=== PATIENT | female | born 1945 | race Caucasian/White ===

== ENCOUNTER 2022-02-13 13:11 | Outpatient (RCR) | payer MEDICARE, OTHER, SELFPAY ==
--- OUTSIDE RECORDS SUMMARY | 2022-02-08 09:09 | XMS_ITS | Continuity of Care Document ---
:1945 Author Care Team Providers Name Role Phone MD Ya Attending Physician Unavailable MD Candida Weaver Primary Care Physician Chief Complaint and Reason for Visit Chief Complaint Neck Pain Reason for Visit C2 patholgic fracture Multiple Myeloma Allergies, Adverse Reactions, Alerts No known allergies Social History Smoking Status Status Start Date End Date Date of Observat ion Never smoked tobacco July (finding) 12:58pm Additional Data Assigned Sex Female Medications Medication Status Dose Units Route Directions Qty Days Start End Ins tructions Date Date Acetaminophen Active 325-6 MG PO Every 4 100 NO MORE THAN (Tylenol) 325 50 Hours as 400 0 MG/DAY Mg TAB needed Acyclovir Active 400 MG PO Twice A Day 180 January 23, 2021 4:53pm Aluminum & Active 1 LUCIE OR As Needed 16 January use as directed on bottle for occasional gas, belching. Magnesium as needed , Separa te from other medications by several hours. Hydroxide 2020 (Mag-Al) LIQ 2:22pm Aspirin Active 81 MG PO Daily 100 Decembe r 2019 2:32pm Calcium/Vitam Active 1 TAB PO Daily 100 Februar sta rt around in D (Calcium y 10th, 2020 Carbonate/Vit 2020 kyle D) 600 10:42am Mg/400 Unit TAB Dexamethasone Active 4 MG PO As Directed 60 20 October TAKE 4 MG , DAILY x 5 2021 DAYS EACH 12:14pm WEEK Itraconazole Active 200 PO Daily Levothyroxine Active 25 MCG PO Daily 30 Sodium (Synthroid) 25 Mcg TAB Polyethylene Active 17 GM PO Daily 238 Glycol 3350 (Miralax) 17 Gm POW Sulfamethoxaz Active 1 TABLET PO Weekly 21 October ole-Trimethop 15th, rim (Bactrim 2021 Ds (800/160)) 12:14pm 800 Mg/160 Mg TAB Terbinafine Active 1 % EX Hcl (Topical) (Terbinafine Hcl) 1 % CRE Acyclovir Disconti 400 MG PO Twice A Day 180 October nued , , 2020 2020 2:11pm 4:53pm Acyclovir Disconti 400 MG PO Twice A Day 180 October nued r , 2019 2:32pm 2:11pm Cyclophospham Disconti 552 MG PO Weekly 44 November ta ke 11 joni nued , , capsules 2020 2020 weekly. 12:45pm 1:54pm Cyclophospham Disconti 552 MG PO Weekly 44 November take 11 joni nued r , , capsules 2019 2020 weekly. 2:30pm 12:45p m Dexamethasone Disconti 4 MG PO Daily October GARCÍA E 4 MG nued , , DAILY x 5 2021 2021 DAYS EACH 1:31pm 12:14p WEEK m Dexamethasone Disconti 4 MG PO Daily as 6 20 October GIVE EVERY 6 nued needed , HOURS 2021 NEEDED FOR 1:31pm CROUP Dexamethasone Disconti 8 MG PO As Directed August ebrua Take 2 tabs nued , ry of 4 mg po 2022 04, daily for 5 2:09pm 2021 days a week. 2:37pm Dexamethasone Disconti 20 MG PO Weekly Decemberuar t ting 5 nued , y tablets 2020, weekly 1:54pm 2021 2:09pm Dexamethasone Disconti 40 MG PO Weekly 40 Decembdecember nued r 15, , 2019 2020 2:27pm 1:54pm Essential Disconti 1 TABLET PO As Needed Septem Enzyme nued 2020 11:18a m Lactobacillus Disconti 1 OR Daily Februa (Probiotic) nued ry CAP 2021 1:42pm Lorazepam Disconti 0.5-1 MG PO Every 4 50 Decembe Februa UT N nued Hours as r , ry Nausea/vo miti needed for 2020 04, ng Nausea/Vomi 2:27pm 2021 ting 1:42pm Multivitamins Disconti 1 TAB PO As Needed October (Multivitamin nued , /Minerals) 2020 TAB 10:24a m Oxycodone Hcl Disconti 5-10 MG PO Every 6 15 Decembe Decem b nued Hours as r 1st, er needed 2019 15, 3:22pm 2020 1:22pm Penlac Disconti TOP Daily Septem nued dimas 2020 11:18a m Prochlorperaz Disconti 10 MG PO Every 4-6 30 Decembe Sep katerine PRN ine Maleate nued Hours as r 15, ry Eladio sea/vomiti needed for 2020 04, ng Nausea/Vomi 2:27pm 2021 ting 1:42pm Sulfamethoxaz Disconti 1 TABLET PO Weekly 21 October ole-Trimethop nued 15, rim (Bactrim 2021 Ds (800/160)) 12:14p 800 Mg/160 Mg m TAB Sulfamethoxaz Disconti 1 TAB PO Daily Decembe Februa ole-Trimethop nued r 15, ry rim (Bactrim 2020 9, Ds) 800 1:00pm 2021 Mg/160 Mg TAB 1:42pm Sulfamethoxaz Disconti 1 TAB PO Twice 30 Decembe Decemb take 1 tab ole-Trimethop nued Weekly r 15, er Fri and 1 rim (Bactrim 2019, tab fri Ds) 800 2:32pm 2020 Mg/160 Mg TAB 1:00pm Relevant Diagnostic Tests and/or Laboratory Data Laboratory Results Test Date/Time Result Interpretation Reference Result Comment Performing Range Site White Blood January 23, 5.14 5.00-10.00 [facility] Lab Count 2021 [address] [facility] 1:20pm [facility] [address] Red Blood January 23, 4.09 3.90-5.03 [facility] Count 2021 [address] [facility] 1:20pm [facility] [address] Hemoglobin January 23, 14.2 12.0-15.5 [facility] 2021 [address] [facility] 1:20pm [facility] [address] Hematocrit January 23, 42.7 34.9-44.5 [facility] 2021 [address] [facility] 1:20pm [facility] [address] Mean January 23, 104 82-98 [facility] Corpuscular 2021 1999 [facility] Volume 1:20pm [place] [address] Mean January 23, 35 27-34 [facility] Corpuscular 2021 [address] [facility] Hemoglobin 1:20[place] [address] Mean January 23, 33 32-36 [facility] Corpuscular 2021 [address] [facility] Hemoglobin 1:20pm [place] [address] Concent Platelet Count January 23, 168 150-450 [facility] 2021 [address] [facility] 1:20pm [place] [address] RDW January 23, 12.1 11.5-15.3 [facility] Coefficient of 2021 [address] [facility] Variation 1:20pm [place] [address] Neutrophils January 23, 90.7 50.0-70.0 [facility] (%) (Auto) 2021 1999 [facility] 1:20pm [facility] [address] Lymphocytes January 23, 6.4 25.0-45.0 [facility] (%) (Auto) 2021 [address] [facility] 1:20pm [place] [address] Monocytes (%) January 23, 2.7 0.00-11.0 [facility] Lab (Auto) 2021 [address] [facility] 1:20pm [facility] [address] Eosinophils January 23, 0.0 0.0-7.0 [facility] (%) (Auto) 2021 [address] [facility] 1:20pm [place] [address] Basophils (%) January 23, 0.2 0.0-3.0 [facility] Lab (Auto) 2021 [address] [facility] 1:20pm [place] [address] Immature January 23, 0.0 [facility] Granulocyte % 2021 1999 [facility] (Auto) 1:20pm [place] [address] Neutrophils # January 23, 4.66 1.70-7.00 [facility] Lab (Auto) 2021 [address] [facility] 1:20pm [place] [address] Lymphocytes # January 23, 0.33 0.90-2.90 [facility] Lab (Auto) 2021 [address] [facility] 1:20pm [facility] [address] Monocytes # January 23, 0.14 0.30-0.90 [facility] Lab (Auto) 2021 [address] [facility] 1:20pm [facility] [address] Eosinophils # January 23, 0.00 0.00-0.50 [facility] Lab (Auto) 2021 [address] [facility] 1:20pm [place] [address] Basophils # January 23, 0.01 0.00-0.20 [facility] Lab (Auto) 2021 [address] [facility] 1:20pm [facility] [address] Immature January 23, 0.00 [facility] Granulocyte # 2021 [address] [facility] (Auto) 1:20pm [facility] [address] Random Glucose January 23, 152 60-115 [facility] 2021 [address] [facility] 1:20pm [facility] [address] Blood Urea January 23, 18 7-30 [facility] Nitrogen 2021 [address] [facility] 1:20pm [facility] [address] Creatinine January 23, 0.8 0.5-1.5 [facility] 2021 [address] [facility] 1:20pm [facility] [address] Estimated January 23, 57.3189 [facility] Creatinine 2021 0 [address] [facility] Clearance 1:20pm [facility] [address] Sodium Level January 23, 138 135-149 [facility] 2021 [address] [facility] 1:20pm [facility] [address] Potassium January 23, 4.0 3.6-5.1 [facility] Level 2021 [address] [facility] 1:20pm [facility] [address] Chloride Level January 23, 106 96-114 [facility] 2021 [address] [facility] 1:20pm [facility] [address] Carbon Dioxide January 23, 27 20-32 [facility] Level 2021 [address] [facility] 1:20pm [facility] [address] Calcium Level January 23, 10.1 8.4-10.6 [facility] Lab 2021 [address] [facility] 1:20pm [facility] [address] Total Protein January 23, 5.7 6.0-8.3 The use of [facility] 2021 Eltrombopag, a [address] [facility] 1:20pm [place] [address] stimulant used to treat thrombocytopenia and aplastic anemia, interferes with this measurement of total protein. A 5% bias has been observed. Albumin January 23, 3.8 3.3-5.0 [facility] [address] 1:20pm [facility] [address] Total January 23, 0.9 0.1-1.5 [facility] Bilirubin 2021 [address] [facility] 1:20pm [facility] [address] Aspartate January 23, 40 12-35 [facility] Amino Transf [address] (AST/SGOT) 1:20pm [place] [address] Alanine January 23, 40 4-35 [facility] Aminotransfera 2021 [address] [facility] se (ALT/SGPT) 1:20pm [facility] [place] [address] Alkaline January 23, 49 40-150 [facility] Phosphatase [address] 1:20pm [facility] [address] Lactate 596 313-618 [facility] Dehydrogenase [address] [facility] [address] Total Protein December 19, 5.7 6.3-8.2 [facility] (LAURA) [address] 1:30pm [facility] [address] Albumin (LAURA) December 19, 3.64 3.75-5.01 [facility] [address] 1:30pm [facility] [address] Zpypr-8-Muvtrx December 19, 0.29 0.19-0.46 [facility] ins [address] 1:30pm [facility] [address] Uyueb-6-Mvqbke December 4th, 0.60 0.48-1.05 [facility] ins [address] 1:30pm [facility] [address] Beta Globulins December 19, 0.68 0.48-1.10 [facility] [address] 1:30pm [facility] [address] Gamma December 19, 0.50 0.62-1.51 [facility] Globulins [address] 1:30pm [facility] [address] Immunofixation December 19, LAURA [facility] Interpretation [address] 1:30pm [facility] [address] Immunoglobulin December 19, 154 460-5952 REFERENCE [facility] G 2021 INTERVAL: [address] (Nephelometry) 1:30pm Immunoglobulin [facility] [address] GAccess complete set of age- and/or gender-specific referenceinterva ls for this test in the [facility] Test Directory(WebRadar). Immunoglobulin December 19, 49 68-408 REFERENCE [facility] A [address]: [address] (Nephelometry) 1:30pm Immunoglobulin [address] AAccess complete set of age- and/or gender-specific referenceinterva ls for this test in the [facility] Test Directory([employer]). Immunoglobulin December 19, < 10 35-263 REFERENCE [facility] M 2021 INTERVAL: [address] (Nephelometry) 1:30pm Immunoglobulin [place] [address] MAccess complete set of age- and/or gender-specific referenceinterva ls for this test in the [facility] Test Directory(WebRadar). Free [place] December 19, 8.33 3.30-19.40 INTERPRETIVE [facility], 2021 INFORMATION: [address] Quant 1:30pm [place] Qnt Free [place] [address] Light ChainsUndetected antigen excess is a rare event but cannot beexcluded. Free light chain results should always be interpretedin conjunction with other clinical and laboratory findings. Free Lambda December 19, 6.81 5.71-26.30 INTERPRETIVE [facility], 2021 INFORMATION: [address] Quant 1:30pm Lambda Qnt Free [place] [address] Light ChainsUndetected antigen excess is a rare event but cannot beexcluded. Free light chain results should always be interpretedin conjunction with other clinical and laboratory findings. Free [place] and December 19, 1.22 0.26-1.65 [facility] ABL Farms Lambda Light [address] Chains 1:30pm [address] LAURA & Serum December 19, See Hypogammaglobuli A [facility] PEP 2021 Note nemia. Slight [address] Interpretation 1:30pm restriction of [place] [address] proteinmigration in the gamma region. LAURA gel shows a faint bandin IgG lambda suggestive of a specific immune response arlen early monoclonal protein. Close clinical correlationwith LAURA follow-up is suggested, if clinically indicated. Monoclonal May 4th, See Authorized [facility] and 2021 Note individuals can [address] FLC (EER) 1:30pm access the [facility] [address] ARU[facility]anced Report using the following link:[email or web address] By: [id number] [place], [place] [email or web address] Director: Violette Paredes MD Advance Directives Advance Directive Response Recorded Date/Time Has patient completed a No July 18 12:58pm Health Care Directive? Insurance Providers Guarantor Pamela Mckeon Address [address] [address] Contact Info. Home Phone: CELL Payer Policy Id Coverage Id Subscriber's Subscriber Id Effective E xpiration Name Date Date [employer] [id number] Pamela Mckeon [id number] August Solution Plan Medicare [id number] Pamela Mckeon Encounters Encounter Location(s) Arrival/Admit Date Discharge/Depart Date Provider(s) Registered [place] February 06, 2022 Ya, [facility] 6:56am Plan of Treatment Future Tests Future scheduled test information is unavailable Pending Tests Pending diagnostic test information is unavailable Future Visits Future appointment information is unavailable Referrals to Other Providers Reason for Referral Start Provider Provider Contact Provider Address Referral Date Information Ellie Weaver Work Phone: GRICEL BARRAZA [facility] Candida QUIÑONEZ [address] [facility] [address] Future Procedures Future procedure information is unavailable Future Medications Future medication information is unavailable Patient Instructions Neutropenic Precautions (GEN) Multiple Myeloma (DC)
--- NOTE | 2022-02-11 16:29 | URNOTE ---
09/28/21 Note entered by Cara Noonan: Request received from [facility] for prior authorization of Zoledronic Acid J3489. Patient carries Medicare as primary insurance. Per [facility].gov LCD [id number] no prior authorization is required for Zoledronic Acid. Services are based on medical necessity and follows Medicare guidelines.
--- NOTE | 2022-02-11 16:30 | URNOTE ---
08/17/21 note entered by Cara Noonan: Request received from [facility] for prior authorization of Velcade J9041. Patient carries Medicare as primary insurance. Per CMS.gov LCD K66278 no prior authorization is required for Velcade. Services are based on medical necessity and follows Medicare guidelines.
[2022-02-13 13:36] LABS: Slide Review Reflex No
[2022-02-13 14:02] VITALS: BP 112/67; PULSE 76; RESP 16; TEMP 36.3; O2SAT 97
[2022-02-13 14:36] LABS: Basophils Absolute Auto 0.01 K/uL (0.00-0.30); Basophils Percent Auto 0.2 % (0.0-3.0); Hematocrit 43.8 % (33.0-51.0); Hemoglobin* 14.3 gm/dL (12.0-16.0); Immature Granulocytes Abs Auto 0.01 K/uL (0.00-0.30); Lymphocytes Percent Auto 7.9 % (20-44); Mean Corpuscular HGB Conc 33 gm/dL (32-36); Mean Corpuscular Hemoglobin 34 pg (26-34); Mean Corpuscular Volume 105 fL (80-100); Monocytes Percent Auto 3.1 % (0.0-11.0); Neutrophils Percent Auto 88.6 % (42.0-72.0); Platelet Count* 191 K/uL (140-440); RDW Coefficient of Variation % 12.2 % (11.5-15.5); Red Blood Count 4.17 m/uL (4.00-5.20); White Blood Count* 5.41 K/uL (4.50-11.00)
[2022-02-13 14:44] LABS: Albumin* 3.9 g/dL (3.3-5.0); Chloride* 109 mmol/L (96-114)
[2022-02-13 14:45] LABS: Potassium* 3.8 mmol/L (3.6-5.1); Sodium* 141 mmol/L (135-149)
[2022-02-13 14:47] LABS: Alanine Aminotransferase* 56 U/L (4-35); Alkaline Phosphatase* 49 U/L (40-150); Aspartate Amino Transferase* 50 U/L (12-35); Bilirubin Total* 0.9 mg/dL (0.1-1.5); Blood Urea Nitrogen* 20 mg/dL (7-30); Carbon Dioxide* 27 mmol/L (20-32); Creatinine* 0.8 mg/dL (0.5-1.5); Est. Creatinine Clearance* 46.47; Estimated Glomerular Filt Rate 76.31; Total Protein* 5.9 g/dL (6.0-8.3)
[2022-02-13 14:48] LABS: Calcium* 10.4 mg/dL (8.4-10.6); Glucose* 143 mg/dL (60-115)
== END 2022-02-14 23:59 | disposition home or self-care (01) ==
LOC: CCIC 13:11
PROVIDERS: Clinical Nurse Specialist; PCP Family Medicine; Visit Provider Internal Medicine Hematology & Oncology
DX: D80.1 Nonfamilial hypogammaglobulinemia (principal); D47.2 Monoclonal gammopathy; C90.00 Multiple myeloma not having achieved remission
CPT/HCPCS: 36415; 80053; 85025; J9041

== ENCOUNTER 2022-03-13 13:15 | Outpatient (RCR) | payer MEDICARE, OTHER, SELFPAY ==
[2022-02-20 14:01] VITALS: BP 118/71; PULSE 78; RESP 16; TEMP 36.4; O2SAT 97
[2022-02-20 14:14] LABS: Lactate Dehydrogenase* 650 U/L (313-618)
--- NOTE | 2022-02-20 15:53 | ONC.NURNOTE ---
Pt here for velcade and evushield. Pt only received half of a dose of the evushield. Plan is for pt to receive other half on 02/27/22.
[2022-02-25 09:56] LABS: Albumin 3.92 g/dL (3.75-5.01); Alpha 1 Globulin 0.26 g/dL (0.19-0.46); Immunofixation IFE Done; Immunoglobulin A 51 mg/dL (68-408); Immunoglobulin G 566 mg/dL (768-1632); Immunoglobulin M 11 mg/dL (35-263); Kappa Qnt Free Light Chains 8.68 mg/L (3.30-19.40); Kappa/Lambda Light Chain Ratio 1.35 (0.26-1.65); Lambda Qnt Free Light Chains 6.44 mg/L (5.71-26.30)
--- NOTE | 2022-02-25 10:19 | ONC.NURNOTE ---
Authorization: User: Cara Noonan Date: 08/17/21 15:41 Type: Eligibility Determination Note... Request received from [facility] for prior authorization of Velcade J9041. Patient carries Medicare as primary insurance. Per [employer].gov D H83800 no prior authorization is required for Velcade. Services are based on medical necessity and follows Medicare guidelines. User: Cara Noonan Date: 09/28/21 15:07 Type: Eligibility Determination Note... Request received from [facility] for prior authorization of Zoledronic Acid J3489. Patient carries Medicare as primary insurance. Per [employer].gov LCD E17902 no prior authorization is required for Zoledronic Acid. Services are based on medical necessity and follows Medicare guidelines.
[2022-02-27 13:08] LABS: Basophils Absolute Auto 0.01 K/uL (0.00-0.30); Basophils Percent Auto 0.2 % (0.0-3.0); Hematocrit 42.3 % (33.0-51.0); Hemoglobin* 14.3 gm/dL (12.0-16.0); Lymphocytes Percent Auto 7.3 % (20-44); Mean Corpuscular HGB Conc 34 gm/dL (32-36); Mean Corpuscular Hemoglobin 35 pg (26-34); Mean Corpuscular Volume 103 fL (80-100); Monocytes Percent Auto 3.1 % (0.0-11.0); Neutrophils Percent Auto 89.4 % (42.0-72.0); Platelet Count* 180 K/uL (140-440); RDW Coefficient of Variation % 12.2 % (11.5-15.5); Red Blood Count 4.12 m/uL (4.00-5.20); White Blood Count* 4.79 K/uL (4.50-11.00)
[2022-02-27 13:09] LABS: Slide Review Reflex No
[2022-02-27 13:22] LABS: Albumin* 3.8 g/dL (3.3-5.0); Chloride* 112 mmol/L (96-114)
[2022-02-27 13:23] LABS: Potassium* 4.2 mmol/L (3.6-5.1); Sodium* 139 mmol/L (135-149)
[2022-02-27 13:25] LABS: Alkaline Phosphatase* 56 U/L (40-150); Aspartate Amino Transferase* 38 U/L (12-35); Carbon Dioxide* 23 mmol/L (20-32); Creatinine* 0.7 mg/dL (0.5-1.5); Est. Creatinine Clearance* 45.89; Estimated Glomerular Filt Rate 89.58
[2022-02-27 13:26] LABS: Alanine Aminotransferase* 48 U/L (4-35); Blood Urea Nitrogen* 16 mg/dL (7-30); Calcium* 9.5 mg/dL (8.4-10.6); Glucose* 169 mg/dL (60-115); Total Protein* 5.7 g/dL (6.0-8.3)
[2022-02-27 13:55] VITALS: BP 117/74; PULSE 71; RESP 16; TEMP 36; O2SAT 97
[2022-03-06 13:15] VITALS: BP 123/71; PULSE 76; RESP 16; TEMP 36.1; O2SAT 98
[2022-03-13 13:07] VITALS: BP 119/74; PULSE 75; RESP 16; TEMP 36.3; O2SAT 97
== END 2022-03-17 23:59 | disposition home or self-care (01) ==
LOC: CCIC 13:15
PROVIDERS: PCP Family Medicine; Visit Provider Internal Medicine Hematology & Oncology
DX: C90.00 Multiple myeloma not having achieved remission (principal)
CPT/HCPCS: 36415; 80053; 82784; 83520; 83615; 84155; 84165; 85025; 86334; 96374; 96401; 96413; 99212; 99213; J9041

== ENCOUNTER 2022-04-30 08:00 | Outpatient (RCR) | payer MEDICARE, OTHER, SELFPAY | END 2023-03-06 23:59 | disposition home or self-care (01) | PROVIDERS: PCP Family Medicine; Visit Provider Family Medicine | DX: G31.84 Mild cognitive impairment of uncertain or unknown etiology (principal); Z51.89 Encounter for other specified aftercare | CPT/HCPCS: 97165; 97535 ==

== ENCOUNTER 2022-07-04 23:07 | Emergency (ER) | payer MEDICARE, OTHER, SELFPAY ==
[2022-07-04 23:14] VITALS: BP 149/87; PULSE 65; RESP 16; TEMP 36.1; O2SAT 98
[2022-07-05 01:03] LABS: D Dimer Quantitative* 1.05 ug/ml (0.00-0.50)
--- NOTE | 2022-07-05 01:22 | ED.GENADULT ---
HPI - General Adult General Date Seen: 07/05/22 Chief complaint: Unspecified Complaint, Adult Stated complaint: Swollen Rt Ankle,Possible Multiple Myeloma Time Seen by Provider: 07/05/22 00:02 Source: patient Mode of arrival: ambulatory Limitations: no limitations History of Present Illness HPI narrative: Patient is a 76-year-old female who was seeing Oncology for multiple myeloma. At her visit a week ago she was noted to have edema and was told to elevate her legs when she is sitting down. Tonight she noticed some swelling along the lateral aspect of both ankles and a red zo on the top of the right tello. She has no idea how she got this and denies any trauma. She called the oncology clinic and was told by the triage nurse to come to the hospital and be evaluated for blood clot. She arrives shortly after midnight. She denies any chest pains or shortness of breath. She denies pain in her calves. She is not on a diuretic. Related Data Home Medications Medication Instructions Recorded Confirmed acyclovir 400 mg tablet 400 mg PO BID 02/11/22 06/26/22 aspirin 81 mg chewable tablet 81 mg PO DAILY 02/11/22 06/26/22 calcium carb-ergocalciferol (vit 1 tab PO DAILY 02/11/22 06/26/22 D2) 600 mg calcium-200 unit tablet levothyroxine 25 mcg tablet 25 mcg PO DAILY 02/11/22 03/27/22 polyethylene glycol 3350 17 17 g PO DAILY 02/11/22 06/26/22 gram/dose oral powder terbinafine 1 % topical gel ea topical PRN 02/11/22 06/26/22 dexamethasone 4 mg tablet 4 mg PO .COMPLEX 06/26/22 07/03/22 Previous Rx's Medication Instructions Recorded sulfamethoxazole 800 1 tab PO 2XW #20 tabs 03/27/22 mg-trimethoprim 160 mg tablet Allergies Allergy/AdvReac Type Severity Reaction Status Date / Time No Known Drug Allergies Allergy Verified 07/03/22 13:16 Review of Systems Narrative: Review of systems is outlined above otherwise noted to be negative. No history of blood clot. [facility] Medical History (Updated 07/05/22 @ 01:24 by Ezequiel Mendiola MD) GERD (gastroesophageal reflux disease) Hypogammaglobulinemia Hypothyroidism Lesion of cervical vertebra Smoldering multiple myeloma Social History Smoking Status: Never smoker Do you use any of these nicotine containing products: None Second hand tobacco smoke exposure: No How often do you have a drink containing alcohol: never AUDIT-C Alcohol total score: 0 Non-prescribed substance use: denies use service: No Exam Narrative: Exam Narrative: Vitals noted. HEENT: Conjunctiva clear. Tympanic membranes are pearly white bilaterally. Posterior pharynx is clear without erythema or exudate. Neck is supple without adenopathy, thyromegaly, carotid bruit. Lungs: Clear to auscultation in all wilkerson. No wheezes, rales, rhonchi. Heart: Regular rate and rhythm without murmur. Abdomen: Soft and nontender. No guarding, rigidity, rebound. Bowel sounds are normal. No palpable masses. Extremities: She has 1+ edema at the ankles. This is symmetric. Negative Judi sign. Skin: She has a red area on the dorsum of the right distal lower leg. This is not tender. It looks like a small subcutaneous hemorrhage. No calf tenderness or redness. No palpable cords or thrombophlebitis. Neurologic: Awake, alert, fully oriented. Neurologic exam is nonfocal. Const: Vital Signs, click to edit/add: Vital Signs - 24 hr 07/04/22 23:14 07/05/22 01:25 Temperature 97.0 F L Pulse Rate [Left P ulse Oximeter] 65 65 Respiratory Rate 16 16 Blood Pressure [Le ft Upper Arm] 149/87 H Pulse Oximetry 98 98 Oxygen Delivery Me thod Room Air Room Air Course Course Hospital Course: Patient seen and examined. My index of suspicion for DVT is very low. We opted to draw a D-dimer with the hope that that would be negative and rule out DVT. Unfortunately it is mildly positive. I opted to send her home with a plan to return later today for an ultrasound to officially rule out DVT. Again my index of suspicion is very low on the situation. We discussed that she could use a pair of compression stockings to help with edema. She is comfortable with this plan. She does take a baby aspirin daily. Vital Signs Vital signs: Initial Vital Signs Temperature 97.0 F L 07/04/22 23:14 Temperature Source Temporal Artery Scan 07/04/22 23:14 Pulse Rate 65 07/04/22 23:14 Pulse Rhythm 07/04/22 23:14 Respiratory Rate 16 11/17/22 23:14 Blood Pressure 149/87 H 07/04/22 23:14 Blood Pressure Mean 107 07/04/22 23:14 Blood Pressure Position Sitting 07/04/22 23:14 Pulse Oximetry 98 07/04/22 23:14 Oxygen Delivery Method 07/04/22 23:14 Vital Signs Temperature 97.0 F L 07/04/22 23:14 Pulse Rate 65 07/04/22 23:14 Respiratory Rate 16 07/04/22 23:14 Blood Pressure 149/87 H 07/04/22 23:14 Pulse Oximetry 98 07/04/22 23:14 Oxygen Delivery Method 07/04/22 23:14 Temperature 97.0 F L 07/04/22 23:14 Pulse Rate 65 07/05/22 01:25 Respiratory Rate 16 07/05/22 01:25 Blood Pressure 149/87 H 07/04/22 23:14 Pulse Oximetry 98 07/05/22 01:25 Oxygen Delivery Method 07/05/22 01:25 Medical Decision Making Lab Data Labs: Lab Results 07/05/22 Range/Units 00:30 D-Dimer Quant (PE/DVT) 1.05 H (0.00-0.50) ug/ml Discharge Plan Discharge Clinical Impression: Smoldering multiple myeloma, Ankle edema, bilateral Patient Disposition: Home, Self-Care Condition: Stable Additional Instructions: The Hospital will contact you about an ultrasound of your legs. Continue to elevate your legs. Return to the emergency department for chest pains or shortness of breath or a dramatic increase in your swelling. Prescriptions: No Action sulfamethoxazole-trimethoprim 800-160 mg tablet 1 tab PO 2XW Qty: 20 1RF Rx Instructions: Take every Friday and Friday. acyclovir 400 mg tablet 400 mg PO BID Label Comments: TAKE ONE TABLET BY MOUTH TWICE A DAY aspirin 81 mg tablet,chewable 81 mg PO DAILY calcium carbonate-vitamin D2 600 mg calcium- 200 unit tablet 1 tab PO DAILY Rx Instructions: calcium carb-600mg/vitamin d-400 units po daily levothyroxine 25 mcg tablet 25 mcg PO DAILY Label Comments: TAKE 1 TABLET (25 MCG) BY MOUTH BEFORE BREAKFAST. polyethylene glycol 3350 17 gram/dose powder 17 g PO DAILY terbinafine 1 % gel topical PRN dexamethasone 4 mg tablet 4 mg PO .COMPLEX Label Comments: TAKE ONE TABLET(4MG) BY MOUTH ONCE DAILY 5 DAYS EACH WEEK DIRECTED Rx Instructions: 4 mg orally for 5 days; Follow Up/Referrals: Ellie Weaver MD [Primary Care Provider] - Stand Alone Forms: [employer] Info Instructions
[2022-07-05 01:25] VITALS: PULSE 65; RESP 16; O2SAT 98
== END 2022-07-05 01:56 | disposition home or self-care (01) ==
PROVIDERS: Emergency Provider Family Medicine; PCP Family Medicine
DX: R60.1 Generalized edema (principal); C90.00 Multiple myeloma not having achieved remission
CPT/HCPCS: 36415; 85379; 93970; 99282; 99283; 99284

== ENCOUNTER 2022-09-11 13:00 | Outpatient (RCR) | payer MEDICARE, OTHER, SELFPAY ==
[2022-03-20 13:22] VITALS: BP 115/65; PULSE 76; RESP 16; TEMP 36.3; O2SAT 95
[2022-03-27 13:17] LABS: Basophils Absolute Auto 0.01 K/uL (0.00-0.30); Basophils Percent Auto 0.1 % (0.0-3.0); Hematocrit 41.8 % (33.0-51.0); Hemoglobin* 14.3 gm/dL (12.0-16.0); Immature Granulocytes Abs Auto 0.01 K/uL (0.00-0.30); Lymphocytes Percent Auto 4.2 % (20-44); Mean Corpuscular HGB Conc 34 gm/dL (32-36); Mean Corpuscular Hemoglobin 35 pg (26-34); Mean Corpuscular Volume 101 fL (80-100); Monocytes Percent Auto 4.1 % (0.0-11.0); Neutrophils Percent Auto 91.5 % (42.0-72.0); Platelet Count* 175 K/uL (140-440); Red Blood Count 4.15 m/uL (4.00-5.20); White Blood Count* 8.37 K/uL (4.50-11.00)
[2022-03-27 13:20] LABS: Slide Review Reflex No
[2022-03-27 13:36] LABS: Albumin* 4.2 g/dL (3.3-5.0); Chloride* 110 mmol/L (96-114); Sodium* 141 mmol/L (135-149)
[2022-03-27 13:38] LABS: Bilirubin Total* 0.9 mg/dL (0.1-1.5); Estimated Glomerular Filt Rate 90 ml/min
[2022-03-27 13:39] LABS: Alanine Aminotransferase* 42 U/L (4-35); Alkaline Phosphatase* 54 U/L (40-150); Aspartate Amino Transferase* 36 U/L (12-35); Blood Urea Nitrogen* 19 mg/dL (7-30); Calcium* 10.3 mg/dL (8.4-10.6); Carbon Dioxide* 22 mmol/L (20-32); Glucose* 159 mg/dL (60-115); Total Protein* 6.4 g/dL (6.0-8.3)
[2022-03-27 14:40] LABS: Creatinine* 0.7 mg/dL (0.5-1.5)
[2022-03-27] MEDS: ZOLEDRONIC ACID 4 MG in 0.9 % SODIUM CHLORIDE 100 ml 100 ML 420 MG IVPB (14:52)
[2022-03-27] MEDS: BORTEZOMIB SUBQ 2.5 mg/ml 2.2 MG SUBCUT (15:17)
[2022-04-03 13:13] VITALS: BP 119/65; PULSE 69; RESP 16; TEMP 36.5; O2SAT 96
[2022-04-03] MEDS: BORTEZOMIB SUBQ 2.5 mg/ml 2.2 MG SUBCUT (13:54)
--- NOTE | 2022-04-08 17:21 | ONC.NURNOTE ---
Went over patients medications with son and patient with written medication list due to possible confusion with medications. Tried to review medications prior to MD appointment and patient didn't seem to know then stated her son was setting them up. So to be sure medications were being taken correctly list and discussion with both done on Thursday 04/05 at 1500. Son present but received call from patient's daughter today questioning the appointment by stating My mom was very embarrassed on how my brother was acting and daughter questioning if nurse noticed any thing that took place during the incident. Car Sales Consultant did let daughter know that maybe a home health nurse could come and set her mom's pills up to avoid confusion or conflict within family. Daughter has noticed mom does seem more confused lately and that would be helpful. Message left with patient's primary Ellie Weaver to see if they could start a referral. Home health care to contact daughter Christina Paniagua at [phone] to set up.
[2022-04-10 13:16] VITALS: BP 132/64; PULSE 84; RESP 16; TEMP 35.8; O2SAT 96
[2022-04-10] MEDS: BORTEZOMIB SUBQ 2.5 mg/ml 2.2 MG SUBCUT (14:10)
[2022-04-17 13:20] VITALS: BP 113/63; RESP 16; TEMP 36.8; O2SAT 96
[2022-04-17] MEDS: BORTEZOMIB SUBQ 2.5 mg/ml 2.2 MG SUBCUT (14:38)
[2022-04-24 13:45] VITALS: BP 117/76; PULSE 70; RESP 16; TEMP 36.5; O2SAT 97
[2022-04-24 13:53] LABS: Albumin* 4.2 g/dL (3.3-5.0)
[2022-04-24 13:54] LABS: Chloride* 108 mmol/L (96-114); Potassium* 3.6 mmol/L (3.6-5.1); Sodium* 137 mmol/L (135-149)
[2022-04-24 13:56] LABS: Alkaline Phosphatase* 67 U/L (40-150); Aspartate Amino Transferase* 36 U/L (12-35); Bilirubin Total* 0.6 mg/dL (0.1-1.5); Blood Urea Nitrogen* 23 mg/dL (7-30); Carbon Dioxide* 22 mmol/L (20-32); Creatinine* 0.6 mg/dL (0.5-1.5); Est. Creatinine Clearance* 45.89; Estimated Glomerular Filt Rate 93 ml/min; Total Protein* 6.3 g/dL (6.0-8.3)
[2022-04-24 13:57] LABS: Alanine Aminotransferase* 51 U/L (4-35); Calcium* 10.1 mg/dL (8.4-10.6); Glucose* 129 mg/dL (60-115)
[2022-04-24 14:18] LABS: Hematocrit 41.3 % (33.0-51.0); Hemoglobin* 13.9 gm/dL (12.0-16.0); Immature Granulocytes Abs Auto 0.03 K/uL (0.00-0.30); Lymphocytes Percent Auto 3.2 % (20-44); Mean Corpuscular HGB Conc 34 gm/dL (32-36); Mean Corpuscular Hemoglobin 34 pg (26-34); Mean Corpuscular Volume 102 fL (80-100); Monocytes Percent Auto 5.1 % (0.0-11.0); Neutrophils Percent Auto 91.3 % (42.0-72.0); Platelet Count* 202 K/uL (140-440); RDW Coefficient of Variation % 12.7 % (11.5-15.5); Red Blood Count 4.04 m/uL (4.00-5.20); White Blood Count* 7.77 K/uL (4.50-11.00)
[2022-04-24 14:22] LABS: Slide Review Reflex No
[2022-04-24] MEDS: BORTEZOMIB SUBQ 2.5 mg/ml 2.2 MG SUBCUT (14:49)
[2022-05-01 13:14] VITALS: BP 127/78; PULSE 74; RESP 18; TEMP 36.9; O2SAT 96
[2022-05-01] MEDS: BORTEZOMIB SUBQ 2.5 mg/ml 2.2 MG SUBCUT (14:05)
[2022-05-08 13:10] VITALS: BP 114/72; PULSE 76; RESP 16; TEMP 36.1; O2SAT 97
[2022-05-08] MEDS: BORTEZOMIB SUBQ 2.5 mg/ml 2.2 MG SUBCUT (13:48)
[2022-05-15 13:21] VITALS: BP 118/58; RESP 16; TEMP 36.4; O2SAT 96
[2022-05-15] MEDS: BORTEZOMIB SUBQ 2.5 mg/ml 2.2 MG SUBCUT (14:14)
[2022-05-22 13:30] VITALS: BP 127/65; PULSE 72; RESP 16; TEMP 36.1; O2SAT 97
[2022-05-22 13:36] LABS: Basophils Percent Auto 0.2 % (0.0-3.0); Hematocrit 38.7 % (33.0-51.0); Hemoglobin* 12.9 gm/dL (12.0-16.0); Immature Granulocytes Abs Auto 0.02 K/uL (0.00-0.30); Lymphocytes Percent Auto 7.6 % (20-44); Mean Corpuscular HGB Conc 33 gm/dL (32-36); Mean Corpuscular Hemoglobin 35 pg (26-34); Mean Corpuscular Volume 104 fL (80-100); Neutrophils Percent Auto 85.7 % (42.0-72.0); Platelet Count* 166 K/uL (140-440); RDW Coefficient of Variation % 13.3 % (11.5-15.5); Red Blood Count 3.73 m/uL (4.00-5.20); White Blood Count* 4.35 K/uL (4.50-11.00)
[2022-05-22 13:37] LABS: Slide Review Reflex No
[2022-05-22 13:54] LABS: Chloride* 108 mmol/L (96-114); Potassium* 4.1 mmol/L (3.6-5.1); Sodium* 137 mmol/L (135-149)
[2022-05-22 13:56] LABS: Bilirubin Total* 0.8 mg/dL (0.1-1.5); Creatinine* 0.5 mg/dL (0.5-1.5); Est. Creatinine Clearance* 45.48; Estimated Glomerular Filt Rate 97 ml/min
[2022-05-22 13:57] LABS: Alanine Aminotransferase* 94 U/L (4-35); Alkaline Phosphatase* 62 U/L (40-150); Aspartate Amino Transferase* 102 U/L (12-35); Blood Urea Nitrogen* 14 mg/dL (7-30); Calcium* 10.3 mg/dL (8.4-10.6); Carbon Dioxide* 25 mmol/L (20-32); Glucose* 133 mg/dL (60-115); Total Protein* 6.1 g/dL (6.0-8.3)
[2022-05-22] MEDS: BORTEZOMIB SUBQ 2.5 mg/ml 2.2 MG SUBCUT (14:43)
[2022-05-29 13:00] VITALS: BP 105/66; PULSE 79; RESP 14; TEMP 36.1; O2SAT 98
[2022-05-29] MEDS: BORTEZOMIB SUBQ 2.5 mg/ml 2.2 MG SUBCUT (14:17)
[2022-06-05 13:10] VITALS: BP 109/66; PULSE 74; RESP 16; TEMP 36.1; O2SAT 98
[2022-06-05] MEDS: BORTEZOMIB SUBQ 2.5 mg/ml 2.2 MG SUBCUT (13:34)
[2022-06-12 13:15] VITALS: BP 132/77; PULSE 78; RESP 16; TEMP 36.2; O2SAT 99
[2022-06-12] MEDS: BORTEZOMIB SUBQ 2.5 mg/ml 2.2 MG SUBCUT (14:05)
[2022-06-19 13:00] VITALS: BP 114/74; PULSE 68; RESP 16; TEMP 36.1; O2SAT 98
[2022-06-19 13:37] LABS: Basophils Absolute Auto 0.01 K/uL (0.00-0.30); Basophils Percent Auto 0.2 % (0.0-3.0); Hematocrit 41.6 % (33.0-51.0); Hemoglobin* 13.7 gm/dL (12.0-16.0); Immature Granulocytes Abs Auto 0.01 K/uL (0.00-0.30); Lymphocytes Percent Auto 9.3 % (20-44); Mean Corpuscular HGB Conc 33 gm/dL (32-36); Mean Corpuscular Hemoglobin 35 pg (26-34); Mean Corpuscular Volume 106 fL (80-100); Monocytes Percent Auto 3.1 % (0.0-11.0); Neutrophils Percent Auto 87.2 % (42.0-72.0); Platelet Count* 169 K/uL (140-440); Red Blood Count 3.93 m/uL (4.00-5.20); White Blood Count* 4.83 K/uL (4.50-11.00)
[2022-06-19 13:40] LABS: Slide Review Reflex No
[2022-06-19 13:50] LABS: Albumin* 4.3 g/dL (3.3-5.0)
[2022-06-19 13:51] LABS: Chloride* 107 mmol/L (96-114); Sodium* 139 mmol/L (135-149)
[2022-06-19 13:53] LABS: Aspartate Amino Transferase* 50 U/L (12-35); Carbon Dioxide* 28 mmol/L (20-32); Creatinine* 0.6 mg/dL (0.5-1.5); Est. Creatinine Clearance* 46.54; Estimated Glomerular Filt Rate 93 ml/min; Total Protein* 6.3 g/dL (6.0-8.3)
[2022-06-19 13:54] LABS: Alanine Aminotransferase* 48 U/L (4-35); Alkaline Phosphatase* 57 U/L (40-150); Blood Urea Nitrogen* 15 mg/dL (7-30); Calcium* 10.3 mg/dL (8.4-10.6); Glucose* 122 mg/dL (60-115); Lactate Dehydrogenase* 692 U/L (313-618)
[2022-06-19] MEDS: BORTEZOMIB SUBQ 2.5 mg/ml 2.2 MG SUBCUT (15:05)
[2022-06-19] MEDS: ZOLEDRONIC ACID 4 MG in 0.9 % SODIUM CHLORIDE 100 ml 100 ML 420 MG IVPB (15:06)
[2022-06-19] MEDS: SODIUM CHLORIDE 0.9 % (FLUSH) 10 ML SYRINGE IVF (15:58)
[2022-06-22 02:27] LABS: Alpha 1 Globulin 0.29 g/dL (0.19-0.46); Immunofixation IFE Done; Immunoglobulin A 35 mg/dL (68-408); Immunoglobulin G 397 mg/dL (768-1632); Immunoglobulin M <10 mg/dL (35-263); Kappa Qnt Free Light Chains 7.07 mg/L (3.30-19.40); Kappa/Lambda Light Chain Ratio 1.75 (0.26-1.65); Lambda Qnt Free Light Chains 4.04 mg/L (5.71-26.30); Total Protein, Serum 5.8 g/dL (6.3-8.2)
[2022-06-26] MEDS: BORTEZOMIB SUBQ 2.5 mg/ml 2.2 MG SUBCUT (14:15)
[2022-07-03 13:34] VITALS: BP 122/69; PULSE 57; RESP 16; TEMP 35.9; O2SAT 98
[2022-07-03] MEDS: BORTEZOMIB SUBQ 2.5 mg/ml 2.2 MG SUBCUT (14:09)
[2022-07-10 13:06] VITALS: BP 114/56; PULSE 78; RESP 16; TEMP 36.2; O2SAT 99
[2022-07-10] MEDS: BORTEZOMIB SUBQ 2.5 mg/ml 2.2 MG SUBCUT (13:21)
--- NOTE | 2022-07-10 15:58 | ONC.NURNOTE ---
Patient came in for treatment and was quite concerned about the letter she received and what she planned to do. Let patient know that she could continue to be treated here and continue to see Dr. kennedy and patient so relieved. She drives herself and that would change things regarding her needing someone to help her get to clinic weekly if she had to drive to [place] or [facility].
[2022-07-17 13:26] LABS: Basophils Absolute Auto 0.01 K/uL (0.00-0.30); Basophils Percent Auto 0.2 % (0.0-3.0); Hematocrit 40.4 % (33.0-51.0); Hemoglobin* 13.4 gm/dL (12.0-16.0); Immature Granulocytes Abs Auto 0.02 K/uL (0.00-0.30); Immature Granulocytes Pct Auto 0.3 %; Mean Corpuscular HGB Conc 33 gm/dL (32-36); Mean Corpuscular Hemoglobin 35 pg (26-34); Mean Corpuscular Volume 105 fL (80-100); Monocytes Percent Auto 2.3 % (0.0-11.0); Neutrophils Percent Auto 90.2 % (42.0-72.0); Platelet Count* 162 K/uL (140-440); RDW Coefficient of Variation % 12.4 % (11.5-15.5); Red Blood Count 3.84 m/uL (4.00-5.20); White Blood Count* 5.72 K/uL (4.50-11.00)
[2022-07-17 13:27] VITALS: BP 108/71; PULSE 75; RESP 16; TEMP 36.3; O2SAT 98
[2022-07-17 13:28] LABS: Slide Review Reflex No
[2022-07-17 13:39] LABS: Albumin* 4.1 g/dL (3.3-5.0); Chloride* 110 mmol/L (96-114)
[2022-07-17 13:40] LABS: Potassium* 4.2 mmol/L (3.6-5.1); Sodium* 141 mmol/L (135-149)
[2022-07-17 13:42] LABS: Aspartate Amino Transferase* 35 U/L (12-35); Blood Urea Nitrogen* 18 mg/dL (7-30); Carbon Dioxide* 28 mmol/L (20-32); Creatinine* 0.6 mg/dL (0.5-1.5); Est. Creatinine Clearance* 45.82; Estimated Glomerular Filt Rate 92 ml/min
[2022-07-17 13:43] LABS: Alanine Aminotransferase* 33 U/L (4-35); Alkaline Phosphatase* 49 U/L (40-150); Calcium* 10.4 mg/dL (8.4-10.6); Glucose* 117 mg/dL (60-115)
[2022-07-17] MEDS: BORTEZOMIB SUBQ 2.5 mg/ml 2.2 MG SUBCUT (14:16)
--- NOTE | 2022-07-18 14:19 | PC.NURSE ---
Bowels Pt called today to chat with RN about her bowels. She notes that she is having looser stools but not diarrhea. She has only ever gone one day without a stool, and otherwise goes daily. She doesn't feel this is constipation. We discussed how to use Miralax and Imodium. We discussed the concerns with significant diarrhea and constipation and pt doesn't feel that she has either. She will manager strategic her bowels with diet changes. She will add oatmeal in the mornings and will eat prunes if she gets constipated. Supportive listening provided.
[2022-07-24 13:13] VITALS: BP 108/66; PULSE 76; RESP 16; TEMP 36.2; O2SAT 98
[2022-07-24] MEDS: BORTEZOMIB SUBQ 2.5 mg/ml 2.2 MG SUBCUT (13:40)
--- NOTE | 2022-07-30 15:06 | ONC.NURNOTE ---
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 She is asymptomatic. Reviewed with Lianna Sotelo APRN; pt to be tested if becomes symptomatic. Pt agreeable to this plan.
[2022-07-31 13:14] VITALS: BP 111/61; PULSE 72; RESP 16; TEMP 35.7; O2SAT 99
[2022-07-31] MEDS: BORTEZOMIB SUBQ 2.5 mg/ml 2.2 MG SUBCUT (13:51)
[2022-08-06 11:36] VITALS: BP 113/72; PULSE 68; RESP 20; TEMP 36.9; O2SAT 99
[2022-08-06] MEDS: BORTEZOMIB SUBQ 2.5 mg/ml 2.2 MG SUBCUT (12:36)
--- NOTE | 2022-08-12 12:03 | URNOTE ---
Request received for authorization for Zoledronic acid (J3489) and Bortezomib ([id number]). Prior Authorization is not required as services are based on medical necessity and follow Medicare guidelines.
[2022-08-14 13:22] LABS: Basophils Absolute Auto 0.01 K/uL (0.00-0.30); Basophils Percent Auto 0.2 % (0.0-3.0); Hemoglobin* 13.3 gm/dL (12.0-16.0); Immature Granulocytes Abs Auto 0.01 K/uL (0.00-0.30); Immature Granulocytes Pct Auto 0.2 %; Lymphocytes Percent Auto 7.7 % (20-44); Mean Corpuscular HGB Conc 33 gm/dL (32-36); Mean Corpuscular Hemoglobin 35 pg (26-34); Mean Corpuscular Volume 105 fL (80-100); Monocytes Percent Auto 4.2 % (0.0-11.0); Neutrophils Percent Auto 87.7 % (42.0-72.0); Platelet Count* 162 K/uL (140-440); RDW Coefficient of Variation % 12.2 % (11.5-15.5); Red Blood Count 3.82 m/uL (4.00-5.20); White Blood Count* 5.44 K/uL (4.50-11.00)
[2022-08-14 13:25] LABS: Slide Review Reflex No
[2022-08-14 13:34] LABS: Chloride* 111 mmol/L (96-114); Sodium* 140 mmol/L (135-149)
[2022-08-14 13:35] LABS: Potassium* 3.8 mmol/L (3.6-5.1)
[2022-08-14 13:37] LABS: Alkaline Phosphatase* 56 U/L (40-150); Aspartate Amino Transferase* 52 U/L (12-35); Carbon Dioxide* 25 mmol/L (20-32); Creatinine* 0.6 mg/dL (0.5-1.5); Est. Creatinine Clearance* 45.82; Estimated Glomerular Filt Rate 92 ml/min; Total Protein* 5.9 g/dL (6.0-8.3)
[2022-08-14 13:38] LABS: Alanine Aminotransferase* 48 U/L (4-35); Blood Urea Nitrogen* 19 mg/dL (7-30); Calcium* 9.8 mg/dL (8.4-10.6); Glucose* 164 mg/dL (60-115)
[2022-08-14] MEDS: BORTEZOMIB SUBQ 2.5 mg/ml 2.2 MG SUBCUT (14:41)
[2022-08-14 14:52] VITALS: BP 120/70; PULSE 69; RESP 18; TEMP 36.8; O2SAT 97
[2022-08-22 13:54] VITALS: BP 113/67; PULSE 79; RESP 16; TEMP 36.4; O2SAT 98
[2022-08-22] MEDS: BORTEZOMIB SUBQ 2.5 mg/ml 2.2 MG SUBCUT (14:39)
[2022-08-28 13:08] VITALS: BP 123/69; PULSE 78; RESP 16; TEMP 36.4; O2SAT 98
[2022-08-28] MEDS: BORTEZOMIB SUBQ 2.5 mg/ml 2.2 MG SUBCUT (14:01)
[2022-09-04 13:31] VITALS: BP 115/75; PULSE 67; RESP 16; TEMP 36.7; O2SAT 99
[2022-09-04] MEDS: BORTEZOMIB SUBQ 2.5 mg/ml 2.2 MG SUBCUT (14:07)
[2022-09-11 13:00] VITALS: BP 102/67; PULSE 67; RESP 16; TEMP 36.1; O2SAT 97
[2022-09-11 13:22] LABS: Basophils Percent Auto 0.2 % (0.0-3.0); Hematocrit 39.6 % (33.0-51.0); Hemoglobin* 13.5 gm/dL (12.0-16.0); Immature Granulocytes Pct Auto 1.2 %; Mean Corpuscular HGB Conc 34 gm/dL (32-36); Mean Corpuscular Hemoglobin 35 pg (26-34); Mean Corpuscular Volume 102 fL (80-100); Monocytes Percent Auto 5.8 % (0.0-11.0); Neutrophils Percent Auto 85.8 % (42.0-72.0); Platelet Count* 155 K/uL (140-440); RDW Coefficient of Variation % 12.4 % (11.5-15.5); Red Blood Count 3.89 m/uL (4.00-5.20)
[2022-09-11 13:49] LABS: Slide Review Reflex No
[2022-09-11 14:17] LABS: Albumin* 3.9 g/dL (3.3-5.0); Chloride* 114 mmol/L (96-114); Sodium* 140 mmol/L (135-149)
[2022-09-11 14:18] LABS: Potassium* 4.1 mmol/L (3.6-5.1)
[2022-09-11 14:19] LABS: Creatinine* 0.5 mg/dL (0.5-1.5); Estimated Glomerular Filt Rate 97 ml/min
[2022-09-11 14:20] LABS: Alanine Aminotransferase* 38 U/L (4-35); Alkaline Phosphatase* 46 U/L (40-150); Aspartate Amino Transferase* 35 U/L (12-35); Blood Urea Nitrogen* 19 mg/dL (7-30); Calcium* 9.7 mg/dL (8.4-10.6); Carbon Dioxide* 22 mmol/L (20-32); Glucose* 126 mg/dL (60-115)
[2022-09-11] MEDS: BORTEZOMIB SUBQ 2.5 mg/ml 2.2 MG SUBCUT (14:54)
[2022-09-14 13:29] LABS: Albumin 3.76 g/dL (3.75-5.01); Alpha 1 Globulin 0.23 g/dL (0.19-0.46); Alpha 2 Globulin 0.53 g/dL (0.48-1.05); Immunofixation IFE Done; Immunoglobulin A 36 mg/dL (68-408); Immunoglobulin G 439 mg/dL (768-1632); Immunoglobulin M <10 mg/dL (35-263); Kappa Qnt Free Light Chains 8.11 mg/L (3.30-19.40); Kappa/Lambda Light Chain Ratio 2.23 (0.26-1.65); Lambda Qnt Free Light Chains 3.63 mg/L (5.71-26.30); Total Protein, Serum 5.5 g/dL (6.3-8.2)
== END 2022-09-16 23:59 | disposition home or self-care (01) ==
LOC: CCIC 13:00
PROVIDERS: Clinical Nurse Specialist; PCP Family Medicine; Referring Provider Family Medicine; Visit Provider Internal Medicine Hematology & Oncology
DX: Z51.11 Encounter for antineoplastic chemotherapy; D47.2 Monoclonal gammopathy; C90.00 Multiple myeloma not having achieved remission
CPT/HCPCS: 36415; 80053; 82784; 83520; 83615; 84155; 84165; 85025; 86334; 96374; 96401; 99212; 99214; 99215; J3489; J9041

== ENCOUNTER 2022-09-20 13:18 | Emergency (ER) | payer MEDICARE, OTHER, SELFPAY ==
[2022-09-20 13:33] VITALS: BP 128/71; PULSE 72; RESP 16; TEMP 36.1; O2SAT 100; BMI 20.5
--- NOTE | 2022-09-20 13:42 | ED_ITS ---
HPI - General Adult General Time Seen by Provider: 13:43 Date Seen: 09/20/22 Chief complaint: Eye Problems Stated complaint: Eye Problem Time Seen by Provider: 09/20/22 13:36 Source: patient Mode of arrival: ambulatory Limitations: no limitations History of Present Illness HPI narrative: Patient is a 77-year-old female who noted redness around her eye some bleeding in her eye today. It is not coming out of her eye. She is on aspirin daily, baby aspirin, for prevention. She has multiple myeloma. She has GERD. She has not had any trauma or injury the eye. Her eye does not hurt, and she has no visual problem. Related Data Home Medications Medication Instructions Recorded Confirmed acyclovir 400 mg tablet 400 mg PO BID 02/11/22 09/20/22 aspirin 81 mg chewable tablet 81 mg PO DAILY 02/11/22 09/20/22 calcium carb-ergocalciferol (vit 1 tab PO DAILY 02/11/22 09/20/22 D2) 600 mg calcium-200 unit tablet levothyroxine 25 mcg tablet 25 mcg PO DAILY 02/11/22 09/20/22 polyethylene glycol 3350 17 17 g PO DAILY 02/11/22 09/20/22 gram/dose oral powder terbinafine 1 % topical gel ea topical PRN 02/11/22 06/26/22 dexamethasone 4 mg tablet 4 mg PO .COMPLEX 06/26/22 09/20/22 Previous Rx's Medication Instructions Recorded sulfamethoxazole 800 1 tab PO 2XW #20 tabs 08/13/22 mg-trimethoprim 160 mg tablet Allergies Allergy/AdvReac Type Severity Reaction Status Date / Time No Known Drug Allergies Allergy Verified 09/18/22 13:28 Review of Systems Narrative: No history of eye issues [facility] Medical History GERD (gastroesophageal reflux disease) Hypogammaglobulinemia Hypothyroidism Lesion of cervical vertebra Smoldering multiple myeloma Social History Smoking Status: Never smoker Do you use any of these nicotine containing products: None Second hand tobacco smoke exposure: No How often do you have a drink containing alcohol: never AUDIT-C Alcohol total score: 0 Non-prescribed substance use: denies use service: No Exam Narrative: Exam Narrative: Objective patient's vital signs unremarkable she has got grossly normal visual acuity, she has got a left conjunctiva hemorrhage in the inferior portion of her eye. Extraocular movements appear intact Const: Vital Signs, click to edit/add: Vital Signs - 24 hr 09/20/22 13:33 Temperature 97 F L Pulse Rate [Pulse Oximeter] 72 Respiratory Rate 16 Blood Pressure [Ri ght Upper Arm] 128/71 Pulse Oximetry 100 Oxygen Delivery Me thod Room Air Course Vital Signs Vital signs: Initial Vital Signs Temperature 97 F L 09/20/22 13:33 Temperature Source Temporal Artery Scan 09/20/22 13:33 Pulse Rate 72 09/20/22 13:33 Respiratory Rate 16 09/20/22 13:33 Blood Pressure 128/71 09/20/22 13:33 Blood Pressure Mean 90 09/20/22 13:33 Pulse Oximetry 100 09/20/22 13:33 Oxygen Delivery Method 09/20/22 13:33 Vital Signs Temperature 97 F L 09/20/22 13:33 Pulse Rate 72 09/20/22 13:33 Respiratory Rate 16 09/20/22 13:33 Blood Pressure 128/71 09/20/22 13:33 Pulse Oximetry 100 09/20/22 13:33 Oxygen Delivery Method 09/20/22 13:33 Temperature 97 F L 09/20/22 13:33 Pulse Rate 72 09/20/22 13:33 Respiratory Rate 16 09/20/22 13:33 Blood Pressure 128/71 09/20/22 13:33 Pulse Oximetry 100 09/20/22 13:33 Oxygen Delivery Method 09/20/22 13:33 Medical Decision Making MDM Narrative Medical decision making narrative: Patient has a subconjunctival hemorrhage, she has been on aspirin. I would recommend she hold her aspirin for the next several days, make an appointment to see her eye doctor the next 4-5 days just in case she needs an appointment follow-up. This appears to be a subconjunctival hemorrhage which should need 0 treatment. Recommend rest light activity, recheck in the ER as needed otherwise follow up with eye doctor Discharge Plan Discharge Clinical Impression: Subconjunctival hemorrhage Patient Disposition: Home w/ Parent or Adult Condition: Stable Instructions: Subconjunctival Hemorrhage (ED) Additional Instructions: Avoid aspirin for the next week, make an appointment to see eye doctor in the next 3-5 days, return as needed. Activity Level: Light activity Discharge Diet: Regular Prescriptions: No Action acyclovir 400 mg tablet 400 mg PO BID Label Comments: TAKE ONE TABLET BY MOUTH TWICE A DAY aspirin 81 mg tablet,chewable 81 mg PO DAILY calcium carbonate-vitamin D2 600 mg calcium- 200 unit tablet 1 tab PO DAILY Rx Instructions: calcium carb-600mg/vitamin d-400 units po daily levothyroxine 25 mcg tablet 25 mcg PO DAILY Label Comments: TAKE 1 TABLET (25 MCG) BY MOUTH BEFORE BREAKFAST. polyethylene glycol 3350 17 gram/dose powder 17 g PO DAILY Hold Instructions: Order Change terbinafine 1 % gel topical PRN Hold Instructions: Order Change dexamethasone 4 mg tablet 4 mg PO .COMPLEX Label Comments: TAKE ONE TABLET(4MG) BY MOUTH ONCE DAILY 5 DAYS EACH WEEK DIRECTED Rx Instructions: 4 mg orally for 5 days; sulfamethoxazole-trimethoprim 800-160 mg tablet 1 tab PO 2XW Qty: 20 1RF Rx Instructions: Take every Friday and Friday. Follow Up/Referrals: Ellie Weaver MD [Primary Care Provider] - Stand Alone [facility]
== END 2022-09-20 13:48 | disposition home or self-care (01) ==
PROVIDERS: Emergency Provider Family Medicine; PCP Family Medicine
DX: H11.32 Conjunctival hemorrhage, left eye (principal)
CPT/HCPCS: 99283

== ENCOUNTER 2022-12-15 18:39 | Emergency (ER) | payer MEDICARE, OTHER, SELFPAY ==
[2022-12-15 18:52] VITALS: BP 131/86; PULSE 77; RESP 18; TEMP 36.5; O2SAT 98; BMI 24.8
--- NOTE | 2022-12-15 19:15 | CRLHL7_ITS ---
For Patients: As a result of the Century Cures Act, medical imaging exams and procedure reports are released immediately into your electronic medical record. You may view this report before your referring provider. If you have questions, please contact your health care provider. DATE: 12/15/2022. CLINICAL HISTORY: Confusion. TECHNIQUE: Standard helical CT image acquisition of the brain was performed. COMPARISON: None available. FINDINGS: There is no intracranial hemorrhage. No extra-axial collection, mass effect, or midline shift. Cortes-white matter differentiation is preserved. Patchy hypoattenuation in the white matter of both hemispheres likely reflects sequela chronic small vessel ischemia. Mild generalized parenchymal volume loss with resulting prominence of cerebral sulci and the ventricular system. Scattered intracranial atherosclerotic calcification. The calvarium is unremarkable. The orbits are unremarkable. The paranasal sinuses are unremarkable. The mastoid air cells are unremarkable. The soft tissues are unremarkable. Partial visualization of presumed osseous cement within the C2 vertebral body and the odontoid process. IMPRESSION: 1. No CT evidence of acute intracranial abnormality. 2. Mild generalized parenchymal volume loss and findings likely reflecting sequela of chronic small vessel ischemia. Please note that all CT scans at this facility use dose modulation, iterative reconstruction, and/or weight-based dosing when appropriate to reduce radiation dose to as low as reasonably achievable. Dictated by Mikey Villeda MD @ 12/15/2022 9:11:22 PM (Electronically Signed)
--- NOTE | 2022-12-15 19:25 | ED_ITS ---
HPI - Altered Mental Status General Chief Complaint: Altered Mental Status Stated Complaint: Confusion Time Seen by Provider: 12/15/22 18:48 History of Present Illness HPI narrative: Patient is a 77-year-old woman with a somewhat complex history including multiple myeloma who has had increased confusion over the last several days. Patient was very confused on the phone last night with her family. Her meds are laid out by the pharmacist in cards. This has never been an issue but now is becoming major stumbling point. When asked why that is patient describes a very complex series of dreams which have occurred recently which make her confused as to when to take her medication. Patient lives alone and has no home services. She still drives and lives fairly independently. Patient was seen by her primary physician recently and due to increasing confusion was started on darren zapine. She does not appear to have missed any significant medications recently. No other complaints or concerns are noted no fevers no chills no abdominal pain no dysuria no headaches no seizure activity. Patient does not appear to be injured. Related Data Home Medications Medication Instructions Recorded Confirmed acyclovir 400 mg tablet 400 mg PO BID 02/11/22 10/02/22 aspirin 81 mg chewable tablet 81 mg PO DAILY 02/11/22 10/02/22 calcium carb-ergocalciferol (vit 1 tab PO DAILY 02/11/22 10/02/22 D2) 600 mg calcium-200 unit tablet levothyroxine 25 mcg tablet 25 mcg PO DAILY 02/11/22 10/02/22 polyethylene glycol 3350 17 17 g PO DAILY 02/11/22 10/02/22 gram/dose oral powder terbinafine 1 % topical gel ea topical PRN 02/11/22 09/26/22 dexamethasone 4 mg tablet 4 mg PO .COMPLEX 06/26/22 10/02/22 mirtazapine 7.5 mg tablet 7.5 mg PO QHS 11/20/22 11/20/22 Previous Rx's Medication Instructions Recorded sulfamethoxazole 800 1 tab PO 2XW #20 tabs 08/13/22 mg-trimethoprim 160 mg tablet Allergies Allergy/AdvReac Type Severity Reaction Status Date / Time No Known Drug Allergies Allergy Verified 12/11/22 13:13 Review of Systems Status of ROS: Reports: 10 or more systems reviewed and unremarkable except as noted in History and below [facility] Medical History GERD (gastroesophageal reflux disease) ?K21.9 - Gastro-esophageal reflux disease without esophagitis (ICD-10) Hypogammaglobulinemia ?D80.1 - Nonfamilial hypogammaglobulinemia (ICD-10) Hypothyroidism ?E03.9 - Hypothyroidism, unspecified (ICD-10) Lesion of cervical vertebra ?M89.9 - Disorder of bone, unspecified (ICD-10) Multiple myeloma ?C90.00 - Multiple myeloma not having achieved remission (ICD-10) Smoldering multiple myeloma ?D47.2 - Monoclonal gammopathy (ICD-10) Social History Smoking Status: Never smoker Do you use any of these nicotine containing products: None Second hand tobacco smoke exposure: No How often do you have a drink containing alcohol: never AUDIT-C Alcohol total score: 0 Non-prescribed substance use: denies use service: No Exam Narrative: Exam Narrative: EXAM GENERAL: Patient appears comfortable and well. EYES: No scleral icterus. LYMPH: No supraclavicular or cervical lymphadenopathy. SKIN: Visible skin seen during exam normal or with benign process only. EXT: No dependent lower extremity pedal edema. HEART: Regular rate and rhythm with no murmurs, rubs, or gallops. LUNGS: Clear to auscultation bilaterally with no crackles or wheezes. ABD: Soft, non tender, non distended. PSYCH: Good eye contact, speech is not pressured. Const: Vital Signs, click to edit/add: Vital Signs - 24 hr 12/15/22 18:52 12/15/22 19:30 12/15/22 20:40 Temperature 97.7 F Pulse Rate [Pulse Oximeter] 77 76 62 Respiratory Rate 18 18 18 Blood Pressure [Le ft Upper Arm] 131/86 147/80 H 116/80 Pulse Oximetry 98 98 97 Oxygen Delivery Me thod Room Air Room Air Room Air Course Course Hospital Course: Patient seen examined. I do not appreciate any significant defects. Patient seems confused at times but oriented x4. CBC CMP urinalysis this ETOH tox screen TSH CT of the head ordered. Vital Signs Vital signs: Initial Vital Signs Temperature 97.7 F 12/15/22 18:52 Temperature Source Temporal Artery Scan 12/15/22 18:52 Pulse Rate 77 12/15/22 18:52 Respiratory Rate 18 12/15/22 18:52 Blood Pressure 131/86 12/15/22 18:52 Blood Pressure Mean 101 12/15/22 18:52 Pulse Oximetry 98 12/15/22 18:52 Oxygen Delivery Method Room Air 12/15/22 18:52 Vital Signs Temperature 97.7 F 12/15/22 18:52 Pulse Rate 77 12/15/22 18:52 Respiratory Rate 18 12/15/22 18:52 Blood Pressure 131/86 12/15/22 18:52 Pulse Oximetry 98 12/15/22 18:52 Oxygen Delivery Method Room Air 12/15/22 18:52 Temperature 97.7 F 12/15/22 18:52 Pulse Rate 62 12/15/22 20:40 Respiratory Rate 18 12/15/22 20:40 Blood Pressure 116/80 12/15/22 20:40 Pulse Oximetry 97 12/15/22 20:40 Oxygen Delivery Method Room Air 12/15/22 20:40 MDM - Altered Mental Status MDM Narrative Medical decision making narrative: Patient is a 77-year-old woman with history of recently developed cognitive dysfunction who presents with worsening of her symptoms. Patient appears to be in a safe environment. She has had no recent injuries. She is in today for further evaluation. She was recently started on mirtazapine. UA shows no signs of infection electrolytes show normal electrolytes with the exception of a blood sugar of 255. The remainder of her lab work is unremarkable. CT of her head upon my review is negative for acute abnormalities. At this time I did provide reassurance she does have outpatient follow-up with her primary physician this week. I did make note of her elevated blood sugar although would not aggressively treat when tell she visits with her primary physician but this could certainly be contributing to her worsening cognition. I do think she is safe and has good oversight by her family. I did recommend close outpatient follow-up with her primary physician. I do suspect the best course of action may be to provide more at home services or a higher level of care. Differential Diagnosis Differential diagnosis: Likely alcoholic intoxication, altered mental status, delirium, dementia, hyponatremia, subarachnoid hemorrhage and sepsis Lab Data Labs: Lab Results 12/15/22 12/15/22 Range/Units 19:23 19:30 WBC 3.42 L (4.50-11.00) K/uL RBC 3.83 L (4.00-5.20) m/uL Hgb 13.2 (12.0-16.0) gm/dL Hct 39.5 (33.0-51.0) % MCV 103 H (80-100) fL MCH 35 H (26-34) pg MCHC 33 (32-36) gm/dL RDW Coeff of Sina 12.2 (11.5-15.5) % Plt Count 148 (140-440) K/uL Neut % (Auto) 83.6 H (42.0-72.0) % Lymph % (Auto) 11.1 L (20-44) % [place] % (Auto) 5.0 (0.0-11.0) % Eos % (Auto) 0.0 (0.0-7.0) % Baso % (Auto) 0.0 (0.0-3.0) % Neut # (Auto) 2.90 (1.7-7.0) K/uL Lymph # (Auto) 0.40 L (0.90-2.90) K/uL [place] # (Auto) 0.20 (0.00-0.90) K/UL Eos # (Auto) 0.00 (0.00-0.50) K/uL Baso # (Auto) 0.00 (0.00-0.30) K/uL Sodium 135 (135-149) mmol/L Potassium 3.9 (3.6-5.1) mmol/L Chloride 107 (96-114) mmol/L Carbon Dioxide 24 (20-32) mmol/L BUN 16 (7-30) mg/dL Creatinine 0.5 (0.5-1.5) mg/dL Estimated Creat Clear 47.53 Estimated GFR 97 ml/min Glucose 255 H (60-115) mg/dL Calcium 9.3 (8.4-10.6) mg/dL Total Bilirubin 0.7 (0.1-1.5) mg/dL AST 30 (12-35) U/L ALT 31 (4-35) U/L Alkaline Phosphatase 60 (40-150) U/L Total Protein 5.8 L (6.0-8.3) g/dL Albumin 3.6 (3.3-5.0) g/dL TSH 0.894 (0.270-4.20) uIU/mL Urine Color Yellow (Yellow) Urine Appearance Clear (Clear) Urine pH 6.0 (5.0-8.5) Ur Specific [place] 1.020 (1.000-1.030) Urine Protein Negative (Negative) Urine Glucose (UA) 2+ A (Negative) Urine Ketones Negative (Negative) Urine Blood Negative (Negative) Urine Nitrite Negative (Negative) Urine Bilirubin Negative (Negative) Urine Urobilinogen 1.0 (0.2-1.0) Ur Leukocyte Esterase Negative (Negative) Urine Opiates Screen Negative (Negative) Ur Oxycodone Screen Negative (Negative) Urine Methadone Screen Negative (Negative) Ur Propoxyphene Screen Negative (Negative) Ur Barbiturates Screen Negative (Negative) U Tricyclic Antidepress Negative (Negative) Ur Phencyclidine Scrn Negative (Negative) Ur Amphetamines Screen Negative (Negative) U Methamphetamines Scrn Negative (Negative) U Benzodiazepines Scrn Negative (Negative) Urine Cocaine Screen Negative (Negative) U Marijuana (THC) Screen Negative (Negative) Ur Drug Screen Comment See Note Ethyl Alcohol < 0.01 L (0.01-0.03) % Discharge Plan Discharge Clinical Impression: Cognitive dysfunction Patient Disposition: Home, Self-Care Condition: Stable Additional Instructions: Continue current medications Limit driving Maintain contact with your family Follow-up with your doctor this week. Activity Level: Activity as Tolerated Discharge Diet: Regular Prescriptions: No Action acyclovir 400 mg tablet 400 mg PO BID Patient Comments: TAKE ONE TABLET BY MOUTH TWICE A DAY aspirin 81 mg tablet,chewable 81 mg PO DAILY calcium carbonate-vitamin D2 600 mg calcium- 200 unit tablet 1 tab PO DAILY Rx Instructions: calcium carb-600mg/vitamin d-400 units po daily levothyroxine 25 mcg tablet 25 mcg PO DAILY Patient Comments: TAKE 1 TABLET (25 MCG) BY MOUTH BEFORE BREAKFAST. polyethylene glycol 3350 17 gram/dose powder 17 g PO DAILY Hold Instructions: Order Change terbinafine 1 % gel topical PRN Hold Instructions: Order Change dexamethasone 4 mg tablet 4 mg PO .COMPLEX Patient Comments: TAKE ONE TABLET(4MG) BY MOUTH ONCE DAILY 5 DAYS EACH WEEK DIRECTED Rx Instructions: 4 mg orally for 5 days; mirtazapine 7.5 mg tablet 7.5 mg PO QHS sulfamethoxazole-trimethoprim 800-160 mg tablet 1 tab PO 2XW Qty: 20 1RF Rx Instructions: Take every Friday and Friday. Follow Up/Referrals: Ellie Weaver MD [Primary Care Provider] - Stand Alone Forms: [employer] Info Instructions
[2022-12-15 19:30] VITALS: BP 147/80; PULSE 76; RESP 18; O2SAT 98
[2022-12-15 19:30] LABS: Hematocrit 39.5 % (33.0-51.0); Hemoglobin* 13.2 gm/dL (12.0-16.0); Immature Granulocytes Pct Auto 0.3 %; Lymphocytes Percent Auto 11.1 % (20-44); Mean Corpuscular HGB Conc 33 gm/dL (32-36); Mean Corpuscular Hemoglobin 35 pg (26-34); Mean Corpuscular Volume 103 fL (80-100); Neutrophils Percent Auto 83.6 % (42.0-72.0); Platelet Count* 148 K/uL (140-440); RDW Coefficient of Variation % 12.2 % (11.5-15.5); Red Blood Count 3.83 m/uL (4.00-5.20); White Blood Count* 3.42 K/uL (4.50-11.00)
[2022-12-15 19:40] LABS: Slide Review Reflex No
[2022-12-15 19:41] LABS: Appearance Urine Clear (Clear); Bilirubin Urine Negative (Negative); Blood Urine Negative (Negative); Color Urine Yellow (Yellow); Glucose Urine 2+ (Negative); Ketones Urine Negative (Negative); Leukocyte Esterase Urine Negative (Negative); Nitrite Urine Negative (Negative); Protein Urine Negative (Negative)
--- NOTE | 2022-12-15 19:42 | PC.NURSE ---
patient to imaging
[2022-12-15 19:45] LABS: Albumin* 3.6 g/dL (3.3-5.0); Chloride* 107 mmol/L (96-114); Sodium* 135 mmol/L (135-149)
[2022-12-15 19:48] LABS: Alanine Aminotransferase* 31 U/L (4-35); Alkaline Phosphatase* 60 U/L (40-150); Aspartate Amino Transferase* 30 U/L (12-35); Bilirubin Total* 0.7 mg/dL (0.1-1.5); Blood Urea Nitrogen* 16 mg/dL (7-30); Carbon Dioxide* 24 mmol/L (20-32); Creatinine* 0.5 mg/dL (0.5-1.5); Est. Creatinine Clearance* 47.53; Estimated Glomerular Filt Rate 97 ml/min; Glucose* 255 mg/dL (60-115); Potassium* 3.9 mmol/L (3.6-5.1); Total Protein* 5.8 g/dL (6.0-8.3)
[2022-12-15 19:49] LABS: Calcium* 9.3 mg/dL (8.4-10.6)
[2022-12-15 19:50] LABS: Ethanol* < 0.01 % (0.01-0.03)
[2022-12-15 19:53] LABS: Amphetamine Screen Urine Negative (Negative); Barbiturate Screen Urine Negative (Negative); Benzodiazepines Screen Urine Negative (Negative); Cannabinoid Screen Urine Negative (Negative); Cocaine Screen Urine Negative (Negative); Methadone Screen Urine Negative (Negative); Methamphetamines Screen Urine Negative (Negative); Opiate Screen Urine Negative (Negative); Oxycodone Screen Urine Negative (Negative); Phencyclidine Screen Urine Negative (Negative); Tricyclic Antidepressant Urine Negative (Negative)
[2022-12-15 20:21] LABS: Thyroid Stimulating Hormone* 0.894 uIU/mL (0.270-4.20)
[2022-12-15 20:40] VITALS: BP 116/80; PULSE 62; RESP 18; O2SAT 97
--- NOTE | 2022-12-15 21:24 | PC.NURSE ---
dc instructions gone over with patient, son and daughter in law. no further questions.
== END 2022-12-15 21:24 | disposition home or self-care (01) ==
PROVIDERS: Emergency Provider Internal Medicine; PCP Family Medicine
DX: G31.84 Mild cognitive impairment of uncertain or unknown etiology (principal)
CPT/HCPCS: 36415; 70450; 80053; 80306; 81003; 82077; 84443; 85025; 99283; 99284

== ENCOUNTER 2023-03-12 13:00 | Outpatient (RCR) | payer MEDICARE, OTHER, SELFPAY ==
[2022-09-18 13:15] VITALS: BP 101/59; PULSE 73; RESP 18; TEMP 36.8; O2SAT 96
[2022-09-18] MEDS: ZOLEDRONIC ACID 4 MG in 0.9 % SODIUM CHLORIDE 100 ml 100 ML 420 MG IVPB (13:55)
[2022-09-18] MEDS: BORTEZOMIB SUBQ 2.5 mg/ml 2.2 MG SUBCUT (14:13)
[2022-09-26] MEDS: BORTEZOMIB SUBQ 2.5 mg/ml 2.2 MG SUBCUT (15:47)
[2022-10-02 13:07] VITALS: BP 113/60; PULSE 77; RESP 16; TEMP 36.7; O2SAT 99
[2022-10-02] MEDS: BORTEZOMIB SUBQ 2.5 mg/ml 2.2 MG SUBCUT (13:40)
[2022-10-08 09:21] LABS: Basophils Percent Auto 0.2 % (0.0-3.0); Eosinophils Percent Auto 0.2 % (0.0-7.0); Hematocrit 42.4 % (33.0-51.0); Immature Granulocytes Pct Auto 0.5 %; Lymphocytes Percent Auto 25.3 % (20-44); Mean Corpuscular HGB Conc 33 gm/dL (32-36); Mean Corpuscular Hemoglobin 34 pg (26-34); Mean Corpuscular Volume 103 fL (80-100); Monocytes Percent Auto 12.1 % (0.0-11.0); Neutrophils Percent Auto 61.7 % (42.0-72.0); Platelet Count* 141 K/uL (140-440); RDW Coefficient of Variation % 12.5 % (11.5-15.5); Red Blood Count 4.11 m/uL (4.00-5.20); White Blood Count* 4.23 K/uL (4.50-11.00)
[2022-10-08 09:24] LABS: Slide Review Reflex No
[2022-10-08 09:29] LABS: Albumin* 4.1 g/dL (3.3-5.0); Chloride* 114 mmol/L (96-114); Potassium* 4.2 mmol/L (3.6-5.1); Sodium* 143 mmol/L (135-149)
[2022-10-08 09:31] LABS: Creatinine* 0.7 mg/dL (0.5-1.5); Est. Creatinine Clearance* 45.64; Estimated Glomerular Filt Rate 89 ml/min
[2022-10-08 09:32] LABS: Alanine Aminotransferase* 33 U/L (4-35); Alkaline Phosphatase* 44 U/L (40-150); Aspartate Amino Transferase* 33 U/L (12-35); Blood Urea Nitrogen* 19 mg/dL (7-30); Calcium* 10.1 mg/dL (8.4-10.6); Carbon Dioxide* 28 mmol/L (20-32); Glucose* 86 mg/dL (60-115); Total Protein* 6.4 g/dL (6.0-8.3)
[2022-10-08 09:33] VITALS: BP 120/67; PULSE 69; RESP 16; TEMP 36.5; O2SAT 98
[2022-10-08] MEDS: BORTEZOMIB SUBQ 2.5 mg/ml 2.2 MG SUBCUT (10:33)
[2022-10-15 10:42] VITALS: BP 114/62; PULSE 64; RESP 18; TEMP 36.3; O2SAT 100
[2022-10-15 10:59] LABS: Lactate Dehydrogenase* 252 U/L (120-246)
[2022-10-15] MEDS: BORTEZOMIB SUBQ 2.5 mg/ml 2.2 MG SUBCUT (11:14)
[2022-10-23 13:12] VITALS: BP 126/71; PULSE 77; RESP 16; TEMP 36.8; O2SAT 98
[2022-10-23] MEDS: BORTEZOMIB SUBQ 2.5 mg/ml 2.2 MG SUBCUT (13:38)
[2022-10-30 13:19] VITALS: BP 127/69; PULSE 76; RESP 16; TEMP 36.8; O2SAT 99
[2022-10-30] MEDS: BORTEZOMIB SUBQ 2.5 mg/ml 2.2 MG SUBCUT (14:29)
--- NOTE | 2022-10-30 14:54 | ONC.NURNOTE ---
Pt notes that 2 years ago and then this year at her eye exam it was recommended that she have cataract surgery. She is not sure about continuing care with these providers. I recommended Dr. Saleh and pt said she's heard positive feedback from friends who have seen her. Gave contact info for pt to schedule consult with Dr. Saleh to evaluate cataracts and discuss possible surgery plan. Pt to [facility] this appt. Relayed to pt that she is sched for Onc f/u 12/20 and to call if this needs to be moved sooner to discuss if Velcade/treatment plan needs to be adjusted around surgery and recovery. Pt agreeable to this plan.
--- NOTE | 2022-11-06 13:02 | ONC.NURNOTE ---
Addendum entered by Magi Chavez RN 11/07/22 16:08: Patient called and is undecided if she even wants to go through with it! Addendum entered by Magi Chavez RN 11/07/22 16:06: Dr. kennedy reviewed note and stated per hematology she may proceed with cataract surgery Original Note: Patient saw Dr. Saleh eye yesterday and needs to have cataract surgery. Patient wants to know if this is possible while on treatment for MM
[2022-11-06 13:08] LABS: Basophils Absolute Auto 0.01 K/uL (0.00-0.30); Basophils Percent Auto 0.2 % (0.0-3.0); Hematocrit 41.5 % (33.0-51.0); Hemoglobin* 13.9 gm/dL (12.0-16.0); Immature Granulocytes Abs Auto 0.02 K/uL (0.00-0.30); Immature Granulocytes Pct Auto 0.4 %; Lymphocytes Percent Auto 9.7 % (20-44); Mean Corpuscular HGB Conc 34 gm/dL (32-36); Mean Corpuscular Hemoglobin 35 pg (26-34); Mean Corpuscular Volume 104 fL (80-100); Monocytes Percent Auto 4.6 % (0.0-11.0); Neutrophils Percent Auto 85.1 % (42.0-72.0); Platelet Count* 165 K/uL (140-440); RDW Coefficient of Variation % 12.7 % (11.5-15.5); Red Blood Count 4.01 m/uL (4.00-5.20); White Blood Count* 4.52 K/uL (4.50-11.00)
[2022-11-06 13:22] LABS: Chloride* 109 mmol/L (96-114)
[2022-11-06 13:23] LABS: Potassium* 3.6 mmol/L (3.6-5.1); Sodium* 140 mmol/L (135-149)
[2022-11-06 13:25] LABS: Alkaline Phosphatase* 47 U/L (40-150); Aspartate Amino Transferase* 46 U/L (12-35); Bilirubin Total* 1.2 mg/dL (0.1-1.5); Carbon Dioxide* 26 mmol/L (20-32); Creatinine* 0.6 mg/dL (0.5-1.5); Est. Creatinine Clearance* 45.82; Estimated Glomerular Filt Rate 92 ml/min; Total Protein* 6.2 g/dL (6.0-8.3)
[2022-11-06 13:26] LABS: Alanine Aminotransferase* 47 U/L (4-35); Blood Urea Nitrogen* 17 mg/dL (7-30); Calcium* 10.1 mg/dL (8.4-10.6); Glucose* 146 mg/dL (60-115)
[2022-11-06 13:37] VITALS: BP 108/69; PULSE 72; RESP 16; TEMP 36.4; O2SAT 97
[2022-11-06 13:43] LABS: Slide Review Reflex No
[2022-11-06] MEDS: BORTEZOMIB SUBQ 2.5 mg/ml 2.2 MG SUBCUT (14:33)
[2022-11-13 13:15] VITALS: BP 126/72; PULSE 81; RESP 16; TEMP 36.1; O2SAT 99
[2022-11-13] MEDS: BORTEZOMIB SUBQ 2.5 mg/ml 2.2 MG SUBCUT (14:09)
[2022-11-20 13:04] VITALS: BP 120/75; PULSE 73; RESP 16; TEMP 35.9; O2SAT 99
[2022-11-20] MEDS: BORTEZOMIB SUBQ 2.5 mg/ml 2.2 MG SUBCUT (13:42)
[2022-11-27 13:13] VITALS: BP 114/70; PULSE 77; RESP 18; TEMP 36.6; O2SAT 97
[2022-11-27] MEDS: BORTEZOMIB SUBQ 2.5 mg/ml 2.2 MG SUBCUT (13:36)
--- NOTE | 2022-12-02 12:12 | ONC.NURNOTE ---
Received phone call from patients daughter, who is on the release. She states that she talked with her mother this weekend and there was confusion about one of her medications and nursing telling patient when to take it. Prisoner Classification Interviewer had patient this week and the only thing discussed was her levothyroxine, which patient was told to continue to take in the morning without food. Daughter said there was confusion for her mother and is asking that nursing put her on speaker phone when talking with with patient about medications or other questions. This was noted in patient chart to call Christina Smart at [phone]
[2022-12-04 13:35] LABS: Basophils Absolute Auto 0.01 K/uL (0.00-0.30); Basophils Percent Auto 0.1 % (0.0-3.0); Hematocrit 43.2 % (33.0-51.0); Hemoglobin* 14.2 gm/dL (12.0-16.0); Immature Granulocytes Abs Auto 0.01 K/uL (0.00-0.30); Immature Granulocytes Pct Auto 0.1 %; Lymphocytes Percent Auto 5.9 % (20-44); Mean Corpuscular HGB Conc 33 gm/dL (32-36); Mean Corpuscular Hemoglobin 35 pg (26-34); Mean Corpuscular Volume 105 fL (80-100); Monocytes Percent Auto 2.6 % (0.0-11.0); Neutrophils Percent Auto 91.3 % (42.0-72.0); Platelet Count* 178 K/uL (140-440); RDW Coefficient of Variation % 12.6 % (11.5-15.5); Red Blood Count 4.12 m/uL (4.00-5.20); White Blood Count* 6.91 K/uL (4.50-11.00)
[2022-12-04 13:44] LABS: Slide Review Reflex No
[2022-12-04 13:59] LABS: Albumin* 4.3 g/dL (3.3-5.0); Chloride* 112 mmol/L (96-114); Sodium* 141 mmol/L (135-149)
[2022-12-04 14:00] LABS: Potassium* 3.2 mmol/L (3.6-5.1)
[2022-12-04 14:02] LABS: Alanine Aminotransferase* 39 U/L (4-35); Alkaline Phosphatase* 52 U/L (40-150); Aspartate Amino Transferase* 35 U/L (12-35); Blood Urea Nitrogen* 18 mg/dL (7-30); Carbon Dioxide* 26 mmol/L (20-32); Creatinine* 0.6 mg/dL (0.5-1.5); Est. Creatinine Clearance* 45.21; Estimated Glomerular Filt Rate 92 ml/min; Glucose* 91 mg/dL (60-115); Total Protein* 6.7 g/dL (6.0-8.3)
[2022-12-04 14:03] LABS: Calcium* 10.1 mg/dL (8.4-10.6)
[2022-12-04] MEDS: BORTEZOMIB SUBQ 2.5 mg/ml 2.2 MG SUBCUT (14:13)
[2022-12-07 12:02] LABS: Albumin 4.19 g/dL (3.75-5.01); Alpha 1 Globulin 0.28 g/dL (0.19-0.46); Alpha 2 Globulin 0.61 g/dL (0.48-1.05); Immunofixation IFE Done; Immunoglobulin A 44 mg/dL (68-408); Immunoglobulin G 417 mg/dL (768-1632); Immunoglobulin M 14 mg/dL (35-263); Kappa Qnt Free Light Chains 8.38 mg/L (3.30-19.40); Lambda Qnt Free Light Chains 3.99 mg/L (5.71-26.30); Total Protein, Serum 6.2 g/dL (6.3-8.2)
[2022-12-11 13:06] VITALS: BP 102/66; PULSE 80; RESP 16; TEMP 36.3; O2SAT 99
[2022-12-11] MEDS: BORTEZOMIB SUBQ 2.5 mg/ml 2.2 MG SUBCUT (13:42)
[2022-12-19] MEDS: BORTEZOMIB SUBQ 2.5 mg/ml 2.2 MG SUBCUT (15:07)
[2022-12-19] MEDS: ZOLEDRONIC ACID 4 MG in 0.9 % SODIUM CHLORIDE 100 ml 100 ML 420 MG IVPB (15:07)
[2022-12-25 13:08] VITALS: BP 130/73; PULSE 68; RESP 16; TEMP 36.5; O2SAT 98
[2022-12-25] MEDS: BORTEZOMIB SUBQ 2.5 mg/ml 2.2 MG SUBCUT (13:33)
--- NOTE | 2022-12-25 14:49 | ONC.NURNOTE ---
Marissa states her primary changed some of her meds to twice a day to make it easier for her to take. Marissa given her med list to take home and update.
[2023-01-01 13:27] VITALS: BP 115/78; PULSE 80; RESP 16; TEMP 36.7; O2SAT 97
[2023-01-01] MEDS: BORTEZOMIB SUBQ 2.5 mg/ml 2.2 MG SUBCUT (14:11)
[2023-01-08 13:31] VITALS: BP 114/67; PULSE 64; RESP 16; TEMP 36.4; O2SAT 97
[2023-01-08] MEDS: BORTEZOMIB SUBQ 2.5 mg/ml 2.2 MG SUBCUT (14:16)
[2023-01-15 13:01] VITALS: BP 114/65; PULSE 70; RESP 16; TEMP 36.5; O2SAT 97
[2023-01-15 14:04] LABS: Basophils Percent Auto 0.2 % (0.0-3.0); Hematocrit 40.3 % (33.0-51.0); Hemoglobin* 13.5 gm/dL (12.0-16.0); Immature Granulocytes Pct Auto 0.2 %; Lymphocytes Percent Auto 8.2 % (20-44); Mean Corpuscular HGB Conc 34 gm/dL (32-36); Mean Corpuscular Hemoglobin 34 pg (26-34); Mean Corpuscular Volume 103 fL (80-100); Monocytes Percent Auto 3.7 % (0.0-11.0); Neutrophils Percent Auto 87.7 % (42.0-72.0); Platelet Count* 157 K/uL (140-440); RDW Coefficient of Variation % 12.5 % (11.5-15.5); Red Blood Count 3.92 m/uL (4.00-5.20); White Blood Count* 4.02 K/uL (4.50-11.00)
[2023-01-15 14:08] LABS: Slide Review Reflex No
[2023-01-15 14:19] LABS: Albumin* 3.9 g/dL (3.3-5.0); Chloride* 109 mmol/L (96-114)
[2023-01-15 14:20] LABS: Potassium* 3.6 mmol/L (3.6-5.1); Sodium* 139 mmol/L (135-149)
[2023-01-15 14:21] LABS: Lactate Dehydrogenase* 262 U/L (120-246)
[2023-01-15 14:22] LABS: Aspartate Amino Transferase* 32 U/L (12-35); Carbon Dioxide* 25 mmol/L (20-32); Creatinine* 0.6 mg/dL (0.5-1.5); Est. Creatinine Clearance* 45.21; Estimated Glomerular Filt Rate 92 ml/min; Total Protein* 6.1 g/dL (6.0-8.3)
[2023-01-15 14:23] LABS: Alanine Aminotransferase* 31 U/L (4-35); Alkaline Phosphatase* 50 U/L (40-150); Blood Urea Nitrogen* 16 mg/dL (7-30); Glucose* 134 mg/dL (60-115)
[2023-01-15] MEDS: BORTEZOMIB SUBQ 2.5 mg/ml 2.2 MG SUBCUT (14:41)
[2023-01-22 13:00] VITALS: BP 100/65; PULSE 67; RESP 16; TEMP 36.8; O2SAT 97
[2023-01-22] MEDS: BORTEZOMIB SUBQ 2.5 mg/ml 2.2 MG SUBCUT (13:30)
[2023-01-29 13:29] VITALS: BP 114/67; PULSE 67; RESP 14; TEMP 35.9; O2SAT 98
[2023-01-29] MEDS: BORTEZOMIB SUBQ 2.5 mg/ml 2.2 MG SUBCUT (14:17)
[2023-02-05 13:00] VITALS: BP 116/66; PULSE 72; RESP 16; TEMP 36.1; O2SAT 98
[2023-02-05] MEDS: BORTEZOMIB SUBQ 2.5 mg/ml 2.2 MG SUBCUT (13:54)
--- NOTE | 2023-02-05 16:05 | ONC.NURNOTE ---
called pharmacy x2 for med. they were busy . appoligized to pt for wait.
[2023-02-12 13:26] LABS: Basophils Percent Auto 0.5 % (0.0-3.0); Eosinophils Percent Auto 0.5 % (0.0-7.0); Hematocrit 40.3 % (33.0-51.0); Hemoglobin* 13.4 gm/dL (12.0-16.0); Lymphocytes Percent Auto 26.7 % (20-44); Mean Corpuscular HGB Conc 33 gm/dL (32-36); Mean Corpuscular Hemoglobin 34 pg (26-34); Mean Corpuscular Volume 103 fL (80-100); Monocytes Percent Auto 13.1 % (0.0-11.0); Neutrophils Percent Auto 59.2 % (42.0-72.0); Platelet Count* 171 K/uL (140-440); RDW Coefficient of Variation % 12.5 % (11.5-15.5); Red Blood Count 3.93 m/uL (4.00-5.20); White Blood Count* 3.67 K/uL (4.50-11.00)
[2023-02-12 13:27] LABS: Slide Review Reflex No
[2023-02-12 13:29] VITALS: BP 104/61; PULSE 64; RESP 18; TEMP 36.7; O2SAT 96
[2023-02-12 13:46] LABS: Albumin* 3.7 g/dL (3.3-5.0); Chloride* 110 mmol/L (96-114); Potassium* 3.6 mmol/L (3.6-5.1); Sodium* 138 mmol/L (135-149)
[2023-02-12 13:48] LABS: Aspartate Amino Transferase* 44 U/L (12-35); Bilirubin Total* 1.1 mg/dL (0.1-1.5); Carbon Dioxide* 25 mmol/L (20-32); Creatinine* 0.6 mg/dL (0.5-1.5); Est. Creatinine Clearance* 45.71; Estimated Glomerular Filt Rate 92 ml/min; Total Protein* 5.9 g/dL (6.0-8.3)
[2023-02-12 13:49] LABS: Alanine Aminotransferase* 44 U/L (4-35); Alkaline Phosphatase* 48 U/L (40-150); Blood Urea Nitrogen* 17 mg/dL (7-30); Calcium* 9.7 mg/dL (8.4-10.6); Glucose* 92 mg/dL (60-115)
[2023-02-12] MEDS: BORTEZOMIB SUBQ 2.5 mg/ml 2.2 MG SUBCUT (13:56)
[2023-02-19 13:20] VITALS: BP 118/68; PULSE 77; RESP 18; TEMP 36.6; O2SAT 97
[2023-02-19] MEDS: BORTEZOMIB SUBQ 2.5 mg/ml 2.2 MG SUBCUT (14:12)
[2023-02-26 13:05] VITALS: BP 124/69; PULSE 71; RESP 16; TEMP 36.5; O2SAT 96
[2023-02-26] MEDS: BORTEZOMIB SUBQ 2.5 mg/ml 2.2 MG SUBCUT (13:50)
[2023-03-05 13:25] VITALS: BP 114/73; PULSE 83; RESP 16; TEMP 36.4; O2SAT 97
[2023-03-05] MEDS: BORTEZOMIB SUBQ 2.5 mg/ml 2.2 MG SUBCUT (13:58)
[2023-03-12 13:38] LABS: Hematocrit 39.6 % (33.0-51.0); Hemoglobin* 13.4 gm/dL (12.0-16.0); Lymphocytes Percent Auto 10.6 % (20-44); Mean Corpuscular HGB Conc 34 gm/dL (32-36); Mean Corpuscular Hemoglobin 35 pg (26-34); Mean Corpuscular Volume 102 fL (80-100); Monocytes Percent Auto 4.5 % (0.0-11.0); Neutrophils Percent Auto 84.9 % (42.0-72.0); Platelet Count* 165 K/uL (140-440); RDW Coefficient of Variation % 12.6 % (11.5-15.5); Red Blood Count 3.87 m/uL (4.00-5.20); White Blood Count* 3.76 K/uL (4.50-11.00)
[2023-03-12 13:41] LABS: Slide Review Reflex No
[2023-03-12 13:50] VITALS: BP 103/62; PULSE 71; RESP 16; TEMP 36.4; O2SAT 96
[2023-03-12 13:59] LABS: Albumin* 3.9 g/dL (3.3-5.0); Chloride* 109 mmol/L (96-114); Sodium* 140 mmol/L (135-149)
[2023-03-12 14:02] LABS: Alanine Aminotransferase* 38 U/L (4-35); Alkaline Phosphatase* 42 U/L (40-150); Aspartate Amino Transferase* 48 U/L (12-35); Bilirubin Total* 1.1 mg/dL (0.1-1.5); Blood Urea Nitrogen* 17 mg/dL (7-30); Carbon Dioxide* 25 mmol/L (20-32); Creatinine* 0.7 mg/dL (0.5-1.5); Est. Creatinine Clearance* 45.17; Estimated Glomerular Filt Rate 89 ml/min; Glucose* 114 mg/dL (60-115); Total Protein* 6.1 g/dL (6.0-8.3)
[2023-03-12 14:03] LABS: Calcium* 10.3 mg/dL (8.4-10.6)
[2023-03-12 14:24] LABS: Lactate Dehydrogenase* 285 U/L (120-246)
[2023-03-12] MEDS: BORTEZOMIB SUBQ 2.5 mg/ml 2.2 MG SUBCUT (14:39)
[2023-03-16 00:06] LABS: Albumin 3.96 g/dL (3.75-5.01); Alpha 1 Globulin 0.25 g/dL (0.19-0.46); Alpha 2 Globulin 0.53 g/dL (0.48-1.05); Immunofixation IFE Done; Immunoglobulin A 40 mg/dL (68-408); Immunoglobulin G 387 mg/dL (768-1632); Immunoglobulin M 15 mg/dL (35-263); Kappa Qnt Free Light Chains 7.99 mg/L (3.30-19.40); Kappa/Lambda Light Chain Ratio 2.08 (0.26-1.65); Lambda Qnt Free Light Chains 3.84 mg/L (5.71-26.30); Total Protein, Serum 5.8 g/dL (6.3-8.2)
== END 2023-03-17 23:59 | disposition home or self-care (01) ==
LOC: CCIC 13:00
PROVIDERS: Clinical Nurse Specialist; Internal Medicine Hematology & Oncology; PCP Family Medicine; Referring Provider Family Medicine; Visit Provider Internal Medicine Hematology & Oncology
DX: Z51.11 Encounter for antineoplastic chemotherapy (principal); C90.00 Multiple myeloma not having achieved remission; E03.9 Hypothyroidism, unspecified; D80.1 Nonfamilial hypogammaglobulinemia
CPT/HCPCS: 36415; 80053; 82310; 82784; 83520; 83615; 84155; 84156; 84165; 85025; 86334; 86335; 96374; 96376; 96401; 99212; 99213; 99214; J3489; J9041

== ENCOUNTER 2023-09-10 13:30 | Outpatient (RCR) | payer MEDICARE, OTHER, SELFPAY ==
[2023-03-19 13:20] VITALS: BP 110/60; PULSE 73; RESP 16; TEMP 36.1; O2SAT 98
[2023-03-19] MEDS: ZOLEDRONIC ACID 4 MG in 0.9 % SODIUM CHLORIDE 100 ml 100 ML 420 MG IVPB (13:58)
[2023-03-19] MEDS: BORTEZOMIB SUBQ 2.5 mg/ml 2.2 MG SUBCUT (14:20)
[2023-03-26] MEDS: BORTEZOMIB SUBQ 2.5 mg/ml 2.2 MG SUBCUT (10:00)
[2023-04-02 12:53] VITALS: BP 116/64; PULSE 68; RESP 18; TEMP 36.5; O2SAT 97
[2023-04-02] MEDS: BORTEZOMIB SUBQ 2.5 mg/ml 2.2 MG SUBCUT (13:50)
[2023-04-09 12:58] LABS: Basophils Absolute Auto 0.01 K/uL (0.00-0.30); Basophils Percent Auto 0.2 % (0.0-3.0); Hematocrit 41.2 % (33.0-51.0); Hemoglobin* 13.5 gm/dL (12.0-16.0); Immature Granulocytes Abs Auto 0.01 K/uL (0.00-0.30); Immature Granulocytes Pct Auto 0.2 %; Lymphocytes Percent Auto 10.8 % (20-44); Mean Corpuscular HGB Conc 33 gm/dL (32-36); Mean Corpuscular Hemoglobin 34 pg (26-34); Mean Corpuscular Volume 103 fL (80-100); Monocytes Percent Auto 5.7 % (0.0-11.0); Neutrophils Percent Auto 83.1 % (42.0-72.0); Platelet Count* 167 K/uL (140-440); RDW Coefficient of Variation % 12.7 % (11.5-15.5); White Blood Count* 4.72 K/uL (4.50-11.00)
[2023-04-09 13:05] LABS: Slide Review Reflex No
[2023-04-09 13:11] LABS: Albumin* 3.8 g/dL (3.3-5.0); Chloride* 112 mmol/L (96-114); Sodium* 139 mmol/L (135-149)
[2023-04-09 13:12] LABS: Potassium* 4.1 mmol/L (3.6-5.1)
[2023-04-09 13:14] LABS: Alanine Aminotransferase* 47 U/L (4-35); Alkaline Phosphatase* 54 U/L (40-150); Anion Gap 4 mEq/L (7-15); Aspartate Amino Transferase* 45 U/L (12-35); Bilirubin Total* 1.2 mg/dL (0.1-1.5); Blood Urea Nitrogen* 17 mg/dL (7-30); Carbon Dioxide* 23 mmol/L (20-32); Creatinine* 0.6 mg/dL (0.5-1.5); Estimated Glomerular Filt Rate 92 ml/min; Glucose* 133 mg/dL (60-115); Total Protein* 6.1 g/dL (6.0-8.3)
[2023-04-09 13:22] VITALS: BP 102/58; PULSE 68; RESP 16; TEMP 36.3; O2SAT 97
[2023-04-09] MEDS: BORTEZOMIB SUBQ 2.5 mg/ml 2.2 MG SUBCUT (14:00)
[2023-04-11 15:01] LABS: Calcium* 9.8 mg/dL (8.4-10.6)
[2023-04-16 13:00] VITALS: BP 120/67; PULSE 68; RESP 14; TEMP 36.1; O2SAT 97
[2023-04-16] MEDS: BORTEZOMIB SUBQ 2.5 mg/ml 2.2 MG SUBCUT (13:32)
[2023-04-23 13:00] VITALS: BP 107/63; PULSE 70; RESP 16; TEMP 36.1; O2SAT 96
[2023-04-23] MEDS: BORTEZOMIB SUBQ 2.5 mg/ml 2.2 MG SUBCUT (13:26)
[2023-04-30 12:59] VITALS: BP 126/73; PULSE 58; RESP 16; TEMP 36.4; O2SAT 98
[2023-04-30] MEDS: BORTEZOMIB SUBQ 2.5 mg/ml 2.2 MG SUBCUT (13:44)
[2023-05-07 13:06] VITALS: BP 104/61; PULSE 70; RESP 16; TEMP 36.4; O2SAT 97
[2023-05-07 13:09] LABS: Basophils Absolute Auto 0.01 K/uL (0.00-0.30); Basophils Percent Auto 0.2 % (0.0-3.0); Hematocrit 40.4 % (33.0-51.0); Hemoglobin* 13.3 gm/dL (12.0-16.0); Immature Granulocytes Abs Auto 0.01 K/uL (0.00-0.30); Immature Granulocytes Pct Auto 0.2 %; Lymphocytes Percent Auto 12.2 % (20-44); Mean Corpuscular HGB Conc 33 gm/dL (32-36); Mean Corpuscular Hemoglobin 34 pg (26-34); Mean Corpuscular Volume 104 fL (80-100); Monocytes Percent Auto 7.1 % (0.0-11.0); Neutrophils Percent Auto 80.3 % (42.0-72.0); Platelet Count* 151 K/uL (140-440); RDW Coefficient of Variation % 12.8 % (11.5-15.5); White Blood Count* 4.76 K/uL (4.50-11.00)
[2023-05-07 13:17] LABS: Slide Review Reflex No
[2023-05-07 13:25] LABS: Albumin* 3.8 g/dL (3.3-5.0); Chloride* 112 mmol/L (96-114); Potassium* 3.6 mmol/L (3.6-5.1); Sodium* 143 mmol/L (135-149)
[2023-05-07 13:27] LABS: Anion Gap 6 mEq/L (7-15); Bilirubin Total* 0.9 mg/dL (0.1-1.5); Carbon Dioxide* 25 mmol/L (20-32); Creatinine* 0.7 mg/dL (0.5-1.5); Estimated Glomerular Filt Rate 89 ml/min
[2023-05-07 13:28] LABS: Alanine Aminotransferase* 38 U/L (4-35); Alkaline Phosphatase* 67 U/L (40-150); Aspartate Amino Transferase* 37 U/L (12-35); Blood Urea Nitrogen* 21 mg/dL (7-30); Glucose* 120 mg/dL (60-115); Total Protein* 6.1 g/dL (6.0-8.3)
[2023-05-07 13:29] LABS: Calcium* 10.4 mg/dL (8.4-10.6)
[2023-05-07] MEDS: BORTEZOMIB SUBQ 2.5 mg/ml 2.2 MG SUBCUT (14:11)
[2023-05-14 12:56] VITALS: BP 110/64; PULSE 67; RESP 16; TEMP 36.2; O2SAT 97
[2023-05-14] MEDS: BORTEZOMIB SUBQ 2.5 mg/ml 2.2 MG SUBCUT (13:47)
[2023-05-21 13:09] VITALS: BP 106/66; PULSE 71; RESP 16; TEMP 36.3; O2SAT 96
[2023-05-21] MEDS: BORTEZOMIB SUBQ 2.5 mg/ml 2.2 MG SUBCUT (13:41)
[2023-05-28 13:21] VITALS: BP 117/71; PULSE 65; RESP 16; TEMP 35.9; O2SAT 97
[2023-05-28] MEDS: BORTEZOMIB SUBQ 2.5 mg/ml 2.2 MG SUBCUT (13:59)
[2023-06-04 13:52] LABS: Hematocrit 40.7 % (33.0-51.0); Hemoglobin* 13.3 gm/dL (12.0-16.0); Mean Corpuscular HGB Conc 33 gm/dL (32-36); Mean Corpuscular Hemoglobin 34 pg (26-34); Mean Corpuscular Volume 105 fL (80-100); Neutrophils Percent Auto 85.5 % (42.0-72.0); Platelet Count* 152 K/uL (140-440); RDW Coefficient of Variation % 12.7 % (11.5-15.5); Red Blood Count 3.89 m/uL (4.00-5.20); White Blood Count* 4.69 K/uL (4.50-11.00)
[2023-06-04 13:53] LABS: Basophils Absolute Auto 0.01 K/uL (0.00-0.30); Basophils Percent Auto 0.2 % (0.0-3.0); Immature Granulocytes Abs Auto 0.01 K/uL (0.00-0.30); Immature Granulocytes Pct Auto 0.2 %; Lymphocytes Percent Auto 10.7 % (20-44); Monocytes Percent Auto 3.4 % (0.0-11.0)
[2023-06-04 13:56] LABS: Slide Review Reflex No
[2023-06-04 14:00] VITALS: BP 105/62; PULSE 70; RESP 16; TEMP 36.2
[2023-06-04 14:04] LABS: Albumin* 3.9 g/dL (3.3-5.0); Chloride* 107 mmol/L (96-114)
[2023-06-04 14:05] LABS: Potassium* 3.8 mmol/L (3.6-5.1); Sodium* 143 mmol/L (135-149)
[2023-06-04 14:07] LABS: Alanine Aminotransferase* 33 U/L (4-35); Alkaline Phosphatase* 52 U/L (40-150); Anion Gap 9 mEq/L (7-15); Aspartate Amino Transferase* 53 U/L (12-35); Bilirubin Total* 0.9 mg/dL (0.1-1.5); Blood Urea Nitrogen* 19 mg/dL (7-30); Carbon Dioxide* 27 mmol/L (20-32); Creatinine* 0.7 mg/dL (0.5-1.5); Estimated Glomerular Filt Rate 89 ml/min; Glucose* 138 mg/dL (60-115); Total Protein* 6.2 g/dL (6.0-8.3)
[2023-06-04 14:08] LABS: Calcium* 9.7 mg/dL (8.4-10.6)
[2023-06-04] MEDS: BORTEZOMIB SUBQ 2.5 mg/ml 2.2 MG SUBCUT (14:36)
[2023-06-07 04:47] LABS: Albumin 3.84 g/dL (3.75-5.01); Alpha 1 Globulin 0.27 g/dL (0.19-0.46); Alpha 2 Globulin 0.56 g/dL (0.48-1.05); Immunofixation IFE Done; Immunoglobulin A 36 mg/dL (68-408); Immunoglobulin G 400 mg/dL (768-1632); Immunoglobulin M 16 mg/dL (35-263); Kappa Qnt Free Light Chains 8.44 mg/L (3.30-19.40); Kappa/Lambda Light Chain Ratio 1.94 (0.26-1.65); Lambda Qnt Free Light Chains 4.36 mg/L (5.71-26.30); Total Protein, Serum 5.7 g/dL (6.3-8.2)
[2023-06-11 13:24] VITALS: BP 118/66; PULSE 72; RESP 16; TEMP 36; O2SAT 95
[2023-06-11] MEDS: BORTEZOMIB SUBQ 2.5 mg/ml 2.2 MG SUBCUT (14:10)
[2023-06-18 13:26] VITALS: BP 128/74; PULSE 71; RESP 18; TEMP 35.9; O2SAT 97
[2023-06-18] MEDS: ZOLEDRONIC ACID 4 MG in 0.9 % SODIUM CHLORIDE 100 ml 100 ML 420 MG IVPB (14:23)
[2023-06-18] MEDS: BORTEZOMIB SUBQ 2.5 mg/ml 2.2 MG SUBCUT (14:50)
[2023-06-18] MEDS: SODIUM CHLORIDE 0.9 % (FLUSH) 10 ML SYRINGE IVF (14:52)
[2023-06-18] MEDS: 0.9 % SODIUM CHLORIDE 250 ml IV (14:52)
[2023-06-25 13:46] VITALS: BP 105/67; PULSE 69; RESP 16; TEMP 36.6; O2SAT 97
[2023-06-25 13:47] LABS: Basophils Absolute Auto 0.01 K/uL (0.00-0.30); Basophils Percent Auto 0.2 % (0.0-3.0); Hematocrit 40.9 % (33.0-51.0); Hemoglobin* 13.4 gm/dL (12.0-16.0); Immature Granulocytes Abs Auto 0.02 K/uL (0.00-0.30); Immature Granulocytes Pct Auto 0.4 %; Lymphocytes Percent Auto 8.1 % (20-44); Mean Corpuscular HGB Conc 33 gm/dL (32-36); Mean Corpuscular Hemoglobin 34 pg (26-34); Mean Corpuscular Volume 104 fL (80-100); Monocytes Percent Auto 2.6 % (0.0-11.0); Neutrophils Percent Auto 88.7 % (42.0-72.0); Platelet Count* 146 K/uL (140-440); RDW Coefficient of Variation % 12.7 % (11.5-15.5); Red Blood Count 3.94 m/uL (4.00-5.20); White Blood Count* 4.59 K/uL (4.50-11.00)
[2023-06-25 13:52] LABS: Slide Review Reflex No
[2023-06-25 13:59] LABS: Albumin* 4.1 g/dL (3.3-5.0); Chloride* 110 mmol/L (96-114); Sodium* 141 mmol/L (135-149)
[2023-06-25 14:00] LABS: Potassium* 4.4 mmol/L (3.6-5.1)
[2023-06-25 14:02] LABS: Alanine Aminotransferase* 49 U/L (4-35); Alkaline Phosphatase* 55 U/L (40-150); Anion Gap 4 mEq/L (7-15); Aspartate Amino Transferase* 51 U/L (12-35); Blood Urea Nitrogen* 17 mg/dL (7-30); Carbon Dioxide* 27 mmol/L (20-32); Creatinine* 0.7 mg/dL (0.5-1.5); Estimated Glomerular Filt Rate 89 ml/min; Glucose* 152 mg/dL (60-115); Total Protein* 6.3 g/dL (6.0-8.3)
[2023-06-25 14:03] LABS: Calcium* 9.8 mg/dL (8.4-10.6)
[2023-06-25] MEDS: BORTEZOMIB SUBQ 2.5 mg/ml 2.2 MG SUBCUT (14:29)
[2023-07-02 13:24] VITALS: BP 117/70; PULSE 77; RESP 16; TEMP 36.4; O2SAT 98
[2023-07-02] MEDS: BORTEZOMIB SUBQ 2.5 mg/ml 2.2 MG SUBCUT (14:09)
--- NOTE | 2023-07-07 09:37 | ONC.NURNOTE ---
kj called to say she was exposed to covid. had vaccine, no symptoms. enc her to wear a mask . and home test is able
[2023-07-08] MEDS: BORTEZOMIB SUBQ 2.5 mg/ml 2.2 MG SUBCUT (14:04)
--- NOTE | 2023-07-14 13:55 | ONC.NURNOTE ---
Marissa called to say that she tested positive for COVID, customs entry writer told Marissa she can can resume her Velcade after 10 days of testing positive with no fever. Marissa was removed from schedule on will restart on 07/23/23.
--- NOTE | 2023-07-18 15:25 | ONC.NURNOTE ---
Call from [facility] follow up Covid symptoms began 07/09 with a positive test it was reported by clinic that Marissa could not take paxlovid due to drug interactions so PCP started her on Molnupirarin X 5 days from 07-11-07-16 Marissa will be 14 days out and if asymptomatic may plan on keeping her 07/23 velcade appt
[2023-07-23 12:49] VITALS: BP 113/68; PULSE 79; RESP 16; TEMP 36.9; O2SAT 97
[2023-07-23] MEDS: BORTEZOMIB SUBQ 2.5 mg/ml 2.2 MG SUBCUT (13:20)
[2023-07-30 13:19] VITALS: BP 118/75; PULSE 67; RESP 16; TEMP 36.3; O2SAT 97
[2023-07-30 13:21] LABS: Basophils Absolute Auto 0.01 K/uL (0.00-0.30); Basophils Percent Auto 0.2 % (0.0-3.0); Eosinophils Absolute Auto 0.02 K/uL (0.00-0.50); Eosinophils Percent Auto 0.4 % (0.0-7.0); Hematocrit 40.1 % (33.0-51.0); Hemoglobin* 13.1 gm/dL (12.0-16.0); Immature Granulocytes Abs Auto 0.01 K/uL (0.00-0.30); Immature Granulocytes Pct Auto 0.2 %; Lymphocytes Percent Auto 24.2 % (20-44); Mean Corpuscular HGB Conc 33 gm/dL (32-36); Mean Corpuscular Hemoglobin 35 pg (26-34); Mean Corpuscular Volume 106 fL (80-100); Neutrophils Absolute Auto 2.72 K/uL (1.7-7.0); Platelet Count* 140 K/uL (140-440); White Blood Count* 4.54 K/uL (4.50-11.00)
[2023-07-30 13:22] LABS: Slide Review Reflex No
[2023-07-30 13:37] LABS: Albumin* 3.8 g/dL (3.3-5.0); Chloride* 108 mmol/L (96-114)
[2023-07-30 13:38] LABS: Potassium* 3.4 mmol/L (3.6-5.1); Sodium* 140 mmol/L (135-149)
[2023-07-30 13:40] LABS: Anion Gap 4 mEq/L (7-15); Bilirubin Total* 0.7 mg/dL (0.1-1.5); Carbon Dioxide* 28 mmol/L (20-32); Creatinine* 0.7 mg/dL (0.5-1.5); Estimated Glomerular Filt Rate 88 ml/min; Total Protein* 6.1 g/dL (6.0-8.3)
[2023-07-30 13:41] LABS: Alanine Aminotransferase* 41 U/L (4-35); Alkaline Phosphatase* 60 U/L (40-150); Aspartate Amino Transferase* 43 U/L (12-35); Blood Urea Nitrogen* 18 mg/dL (7-30); Calcium* 10.1 mg/dL (8.4-10.6); Glucose* 113 mg/dL (60-115)
[2023-07-30] MEDS: BORTEZOMIB SUBQ 2.5 mg/ml 2.2 MG SUBCUT (14:25)
--- NOTE | 2023-08-04 14:15 | URNOTE ---
Request received for authorization for Zoledronic acid (Zometa) (J3489) and Bortezomib (Velcade) ([id number]). Prior Authorization is not required as services are based on medical necessity and follow Medicare guidelines.
[2023-08-06 13:14] VITALS: BP 115/66; PULSE 70; RESP 16; TEMP 37.1; O2SAT 98
[2023-08-06] MEDS: BORTEZOMIB SUBQ 2.5 mg/ml 2.2 MG SUBCUT (13:52)
[2023-08-13 13:20] LABS: Basophils Absolute Auto 0.01 K/uL (0.00-0.30); Basophils Percent Auto 0.2 % (0.0-3.0); Hematocrit 40.1 % (33.0-51.0); Hemoglobin* 13.2 gm/dL (12.0-16.0); Immature Granulocytes Abs Auto 0.01 K/uL (0.00-0.30); Immature Granulocytes Pct Auto 0.2 %; Lymphocytes Percent Auto 7.9 % (20-44); Mean Corpuscular HGB Conc 33 gm/dL (32-36); Mean Corpuscular Hemoglobin 34 pg (26-34); Mean Corpuscular Volume 104 fL (80-100); Monocytes Percent Auto 3.8 % (0.0-11.0); Neutrophils Percent Auto 87.9 % (42.0-72.0); Platelet Count* 166 K/uL (140-440); Red Blood Count 3.86 m/uL (4.00-5.20); White Blood Count* 5.21 K/uL (4.50-11.00)
[2023-08-13 13:25] LABS: Slide Review Reflex No
[2023-08-13 13:27] VITALS: BP 121/75; PULSE 66; RESP 16; TEMP 36; O2SAT 96
[2023-08-13 13:35] LABS: Chloride* 108 mmol/L (96-114); Potassium* 3.7 mmol/L (3.6-5.1); Sodium* 138 mmol/L (135-149)
[2023-08-13 13:37] LABS: Bilirubin Total* 0.9 mg/dL (0.1-1.5); Creatinine* 0.7 mg/dL (0.5-1.5); Estimated Glomerular Filt Rate 88 ml/min
[2023-08-13 13:38] LABS: Alanine Aminotransferase* 31 U/L (4-35); Alkaline Phosphatase* 58 U/L (40-150); Anion Gap 7 mEq/L (7-15); Aspartate Amino Transferase* 29 U/L (12-35); Blood Urea Nitrogen* 16 mg/dL (7-30); Calcium* 10.1 mg/dL (8.4-10.6); Carbon Dioxide* 23 mmol/L (20-32); Glucose* 128 mg/dL (60-115); Total Protein* 6.1 g/dL (6.0-8.3)
[2023-08-13] MEDS: BORTEZOMIB SUBQ 2.5 mg/ml 2.2 MG SUBCUT (14:28)
[2023-08-20 13:00] VITALS: BP 119/69; PULSE 70; RESP 18; TEMP 36.1; O2SAT 96
[2023-08-20] MEDS: BORTEZOMIB SUBQ 2.5 mg/ml 2.2 MG SUBCUT (13:33)
[2023-08-27 12:58] VITALS: BP 136/72; PULSE 82; RESP 16; TEMP 36.6; O2SAT 97
[2023-08-27] MEDS: BORTEZOMIB SUBQ 2.5 mg/ml 2.2 MG SUBCUT (13:56)
[2023-09-03 11:00] VITALS: BP 127/75; PULSE 74; RESP 16; TEMP 36.1; O2SAT 98
[2023-09-03] MEDS: BORTEZOMIB SUBQ 2.5 mg/ml 2.2 MG SUBCUT (13:36)
[2023-09-10 13:08] LABS: Basophils Absolute Auto 0.01 K/uL (0.00-0.30); Basophils Percent Auto 0.2 % (0.0-3.0); Hematocrit 41.8 % (33.0-51.0); Hemoglobin* 13.7 gm/dL (12.0-16.0); Immature Granulocytes Abs Auto 0.01 K/uL (0.00-0.30); Immature Granulocytes Pct Auto 0.2 %; Lymphocytes Percent Auto 8.5 % (20-44); Mean Corpuscular HGB Conc 33 gm/dL (32-36); Mean Corpuscular Hemoglobin 34 pg (26-34); Mean Corpuscular Volume 104 fL (80-100); Neutrophils Percent Auto 88.1 % (42.0-72.0); Platelet Count* 152 K/uL (140-440); RDW Coefficient of Variation % 12.7 % (11.5-15.5); Red Blood Count 4.02 m/uL (4.00-5.20); White Blood Count* 5.03 K/uL (4.50-11.00)
[2023-09-10 13:15] LABS: Slide Review Reflex No
[2023-09-10 13:20] LABS: Albumin* 4.1 g/dL (3.3-5.0); Chloride* 109 mmol/L (96-114); Potassium* 4.3 mmol/L (3.6-5.1); Sodium* 139 mmol/L (135-149)
[2023-09-10 13:22] LABS: Creatinine* 0.9 mg/dL (0.5-1.5); Estimated Glomerular Filt Rate 65 ml/min
[2023-09-10 13:23] LABS: Alanine Aminotransferase* 33 U/L (4-35); Alkaline Phosphatase* 47 U/L (40-150); Anion Gap 4 mEq/L (7-15); Aspartate Amino Transferase* 36 U/L (12-35); Bilirubin Total* 0.9 mg/dL (0.1-1.5); Blood Urea Nitrogen* 19 mg/dL (7-30); Calcium* 10.2 mg/dL (8.4-10.6); Carbon Dioxide* 26 mmol/L (20-32); Glucose* 151 mg/dL (60-115); Total Protein* 6.4 g/dL (6.0-8.3)
[2023-09-10 13:43] VITALS: BP 110/64; PULSE 71; RESP 18; TEMP 36.3; O2SAT 97
[2023-09-10] MEDS: BORTEZOMIB SUBQ 2.5 mg/ml 2.2 MG SUBCUT (14:21)
== END 2023-09-15 23:59 | disposition home or self-care (01) ==
LOC: CCIC 13:30
PROVIDERS: PCP Family Medicine; Referring Provider Family Medicine; Visit Provider Internal Medicine Hematology & Oncology
DX: Z51.11 Encounter for antineoplastic chemotherapy (principal); C90.00 Multiple myeloma not having achieved remission; D47.2 Monoclonal gammopathy
CPT/HCPCS: 36415; 80053; 82310; 82784; 83520; 84155; 84165; 85025; 86334; 96374; 96401; 99212; 99214; 99215; J3489; J7050; J9041

== ENCOUNTER 2023-10-08 06:07 | Day surgery (SDC) | payer MEDICARE, OTHER, SELFPAY ==
--- OUTSIDE RECORDS SUMMARY | 2023-10-08 06:11 | XMS_ITS | Clinical Summary ---
Author Name Unknown Organization [facility] Address [place], [place] [address] Care Team Providers Care Pre Assembly Wirer Name Role Phone Ellie Weaver MD Primary Care Provide r Ezequiel Carlson Unavailable Unavailable [facility] Unavailable [phone] Allergies Active Allergy Reactions Criticality Noted Date Comments Terbinafine Hcl Anxiety 06/22/2019 Medications Medication Sig Dispensed Refills Start Date End Date Status bortezomib (Velcade) 3.5 mg injectionIndications: Multiple myeloma, remission status unspecified (HC) Inject intravenous. Once a week for multiple myeloma 0 02/05/2022 Active trimethoprim-sulfamet hoxazole, 160-800 mg, (BACTRIM DS, SEPTRA DS) tabIndications:Chemot herapy-induced neutropenia (HC) TAKE ONE TABLET ON Friday and --twice a week 24 Tablet 3 05/03/2022 Active dexAMETHasone (DECADRON) 4 mg tablet Take 1 Tablet (4 mg) by mouth. 5 days per week 0 06/27/2022 Active calcium carbonate-vitamin D3, 600 mg-400 unit, 600 mg-10 mcg (400 unit) tabletIndications:Mul tiple myeloma, remission status unspecified (HC) TAKE 1 TABLET BY MOUTH ONCE DAILY WITH A MEAL. 90 Tablet 3 05/09/2023 Active ciclopirox solution (LOPROX) 8 % solutionIndications:O nychomycosis Apply topically to affected area(s) at bedtime. 6.6 mL 11 08/04/2023 Active acyclovir (ZOVIRAX) 400 mg tabletIndications:Mul tiple myeloma not having achieved remission (HC) TAKE ONE TABLET BY MOUTH TWICE A DAY 60 Tablet 2 08/07/2023 Active QUEtiapine (SEROQUEL) 25 mg tabletIndications:Ins omnia, idiopathic,Delusion (HC) Take 1 Tablet (25 mg) by mouth at bedtime. 90 Tablet 3 09/05/2023 Active trimethoprim-polymyxi n b (POLYTRIM) ophthalmic solutionIndications:C onjunctivitis of right eye, unspecified conjunctivitis type Place 1 Drop into both eyes four times daily for 7 days. 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 Multiple myeloma 06/23/2020 Hypothyroidism 06/08/2015 Hives 06/08/2015 Peripheral vertigo, unspecified 05/14/2012 Benign neoplasm of colon 03/05/2007 Overview: Colonoscopy 12/2010 normal repeat in 5 years Colonoscopy 01/2016 polyp repeat in 5 years Colonoscopy 03/2021 few diverticuli, repeat in 7 years Resolved Problems Problem Noted Date Diagnosed Date Resolved Date Protein-calorie malnutrition , unspecified severity 02/05/2022 09/05/2023 Skin ulcer of sacrum 06/26/2021 022 Hypothyroidism 10/03/2015 10/03/2015 VIKAS 03/22/2014 AHI-5.5 03/31/2014 018 Medial epicondylitis of right elbow 05/27/2013 06/18/2018 Hypothyroidism 04/14/2008 06/08/2015 Other specified disorders of thyroid 03/05/2007 04/14/2008 Overview: mild elevation of tsh Encounters Date Type Department Care Team Description 09/30/2023 10:55 AM DESIGN PAINTER Preop Visit [facility] [address] [facility], [place] [id number] Ellie Weaver MD Pre-Op Exam (Cataract surgery. Right eye 10/08/23. Dr. Babrara Saleh); Eye Problem (Follow up, seen Dr. Gregg 09/26) 09/30/2023 Travel 09/26/2023 12:00 PM DESIGN PAINTER Office Visit [facility] [address] [place] [address] Danial Gregg MD Eye Problem (RIGHT eye red x 2 days having a little irritation. /Not having any drainage, no pain, no swelling, no visual changes/Patient is due to have cataract surgery next month (could not remember when)/) 09/26/2023 Travel 09/25/2023 Nurse Triage [facility] [address] [place] [address] Ellie Weaver MD Eye Problem 09/11/[address] [address] Ellie Weaver MD Medication List Update 09/05/2023 10:55 AM DESIGN PAINTER Office Visit [address] [address] Ellie Weaver MD Medicare ANNUAL (subsequent) Visit (78 yo Female/Sleep, was given medication, wakes up once the pill wears off. Hard to get back to sleep./Cataract surgery coming up, having a little anxiety.) 09/05/2023 Travel 08/04/2023 1:30 PM DESIGN PAINTER Office Visit [facility] [address] [place] [address] Christina Golden PA Finger Pain/problem (Has a few nails on hands that may have fungus-would like toenails checked as well) 08/04/[address] [address] Ellie Weaver MD Refill Request (Acyclovir) 08/04/2023 Travel 07/28/2023 Nurse Triage [facility] [address] [place] [address] Ellie Weaver MD Derm Problem 07/18/[address] [address] Ellie Weaver MD Concerns 07/11/2023 2:30 PM DESIGN PAINTER Phone Office Visit [facility] [address] [place] [address] Valente Rolon DO 07/11/2023 Telephone [facility] [address] [place] [address] Valente Rolon, Medication Management (molnupiravir, EUA, 200 mg capsule ) 07/09/2023 Telephone [facility] [address] [place] [address] Ellie Weaver MD Questions (ADVICE FOR TREATMENT) 07/09/2023 Nurse Triage [facility] [address] [place] [address] Ellie Weaver MD Questions; Covid-19 Positive Result from Last 3 Months Immunizations Name Administration Dates Next Due Amb Influenza, Inactivated A IIV4 (Age 65+ Years) Preserv Free 05/12/2020 COVID-19 Vaccine Spikevax (M oderna 50mcg/0.5mL) 12YO+ [id number] Formula PF 05/30/2023 COVID-19 vaccine (Pfizer-Bio NTech 30mcg/0.3mL) 12YO+ BIVALENT PF, MDV 06/27/2022 COVID-19 vaccine (Pfizer-Bio NTech 30mcg/0.3mL) 12YO+ GUANAKITO-SUCROSE PF, MDV 11/17/2021 COVID-19 vaccine (Pfizer-Bio NTech 30mcg/0.3mL) PF, MDV 04/09/2021,10/10/2020,09/19/2020 DT (Age < 7 years) 04/12/2004 Influenza, High-dose Inactivated 018,05/28/2017,05/18/2016,2014,06/02/2014 Influenza, High-dose Quadriv alent Inactivated 06/26/2022,05/22/2021 Influenza, IIV3 (Age 6-35 mos) 06/10/2011 Influenza, IIV3 (Age >=3 years) 06/15/20 13,06/08/2012,06/10/2011,2009 Influenza, Inactivated AIIV4 (Age 65+ Years) Preserv Free 05/08/2023 Pneumococcal Conj 20-valent (Prevnar 20) 01/01/2022 Pneumococcal Poly,23-Valent (Pneumovax) 05/14/2012 Pneumococcal conj 13-Valent (Prevnar 13) 06/08/2015 Td (Age >=7 Years) 04/12/2004 Tdap 03/20/2015 Zoster (Shingrix-RZV, recombinant) 08/20/2019, Zoster (Zostavax-ZVL, live) 06/16/2012 Family History Medical History Relation Name Comments COPD Brother 1 Stephen Zender Cancer Brother 6 Pituitary macro adenoma Cancer Brother 7 basal cell ca Other Brother 8 gall bladder Diabetes Brother 9 Diabetes Brother 10 Other Brother 11 a Other Mother Alzheimers Cancer-breast No Family History Cancer-ovarian No Family History Relation Name Status Comments Brother 1 Stephen Zender Alive Brother 2 John Zender Alive Brother 3 Kalia Zender Alive Brother 4 Wilman Zender Alive Brother 5 Jason Zender Alive Brother 6 Brother 7 Brother 8 Brother 9 Brother 10 Brother 11 Daughter Christina [place] Alive Father Maternal Grandfather Maternal Grandmother Mother Paternal Grandfather Paternal Grandmother Son 1 Duke Alive Son 2 Gaston Alive Social History Tobacco Use Types Packs/Day Years Used Date Smoking Tobacco: Never Smokeless Tobacco: Never Tobacco Cessation:Counseling Given: Yes Alcohol Use Standard Drinks/Week Comments Not Currently 0 (1 standard drink = 0.6 oz pur e alcohol) PHQ-2 Answer Date Recorded PHQ-2 TOTAL SCORE 0 09/05/2023 Social Connections Answer Date Recorded Frequency of Communication with Friends and Fami ly 0 08/04/2023 Financial Resource Strain Answer Date R ecorded Difficulty of Paying Living Expenses 3 08/04/2023 Difficulty of Paying Living Expenses Not on file 08/04/2023 Food Insecurity Answer Date Recorded Worried About Running Out of Food in the Last Ye ar 1 08/04/2023 Transportation Needs Answer Date Record ed Lack of Transportation (Medical) 1 08/04/2023 Housing Stability Answer Date Recorded Unable to Pay for Housing in the Last Year 1 08/04/2023 Sex and Gender Information Value Date Recorded Sex Assigned at Not on file Gender Identity Not on file Sexual Orientation Not on file Obstetrics History Para Term AB IAB SAB Ectopic Multiple Livin g Live Births 3 3 3 3 Date Outcome GA Total Labor Labor/2nd/3rd Weight Sex Delivery Anes PTL Clarice A1 A5 Name Cl in Term Term Term Last Filed Vital Signs Vital Sign Reading Time Taken Comments Blood Pressure 110/69 09/30/2023 11:06 AM DESIGN PAINTER Pulse 61 09/30/2023 11:06 AM DESIGN PAINTER Temperature 36.9 ??C (98.4 ??F) 08/04/2020 11:[address] Respiratory Rate 14 02/04/2020 9:15 AM CDT Oxygen Saturation 98% 09/30/2023 11:06 AM DESIGN PAINTER Inhaled Oxygen Concentration - - Weight 62.3 kg (137 lb 6.4 oz) 09/30/2023 11:06 AM DESIGN PAINTER Height 170.8 cm (5' 7.25) 09/05/2023 11:[address] Body Mass Index 21.36 09/05/2023 11:03 AM DESIGN PAINTER Plan of Treatment Health Maintenance Due Date Last Done Comments Hepatitis C screening for age 18-79 1963 COVID-19 vaccine series (2022- season) 2024 05/30/2023, 06/27/2022, 11/17/2021, Additional history exists Postponed from 07/25/2023 (Other) BMI (ht and wt on same day) for age 18+ 09/05/2024 09/05/2023, 06/27/2022, 06/26/2021, Additional history exists Depression screening for age 12+ 09/05/2024 09/05/2023, 05/08/2023, 05/08/2023, Additional history exists Medicare Wellness for age 65+ 09/05/2024 09/05/2023, 06/27/2022, 06/26/2021, Additional history exists Tetanus booster 03/20/2025 03/20/2015, 02/2008 (Completed outside of [facility]), 04/12/2004 Tdap Completed 03/20/2015 DEXA/DXA scan for age 65+ Completed 2016, 05/19/2012, 03/10/2007 Zoster (shingles) series for age 50+ Completed 08/20/2019, 06/04/2019, 06/16/2012 Pneumococcal series for age 65+ Completed 01/01/2022, 06/08/2015, 05/14/2012 Influenza for age 65+ Completed 05/08/2023 , 06/26/2022, 05/22/2021, Additional history exists Procedures Procedure Name Priority Date/Time Associated Diagnosis Comments BASIC METABOLIC PANEL Routine 09/30/2023 12:00 PM DESIGN PAINTER Preoperative examination TSH WITH REFLEX Routine 09/30/2023 12:00 PM DESIGN PAINTER Mild cognitive impairment with memory loss CBC WITH AUTO DIFFERENTIAL Routine 09/26/2023 1:11 PM DESIGN PAINTER Subconjunctival hemorrhage of right eye Multiple myeloma, remission status unspecified (HC) PROTIME-INR Routine 09/26/2023 1:11 PM DESIGN PAINTER Subconjunctival hemorrhage of right eye Multiple myeloma, remission status unspecified (HC) CBC WITH AUTO DIFFERENTIAL Routine 09/26/2023 1:11 PM DESIGN PAINTER Subconjunctival hemorrhage of right eye Multiple myeloma, remission status unspecified (HC) from Last 3 Months Results * TSH WITH REFLEX (09/30/2023 12:00 PM DESIGN PAINTER) TSH 3.85 0.27 - 4.20 uIU/mL 10/01/2023 4:[address] [facility] Blood BLOOD SPECIMEN / Unknown Venipuncture / Unknown 09/30/2023 12:00 PM DESIGN PAINTER 09/30/2023 12:00 PM DESIGN PAINTER Narrative [facility] - 10/01/2023 4:52 AM DESIGN PAINTER In Adults, TSH values between 5.00 and 10.00 uIU/ml do not necessarily indicate the presence of Hypothyroidism. Correlation with clinical findings such as presence of goiter and/or Thyroperoxidase (TPO) Antibody may be helpful. For more information please refer to TONY 2004; 291: 228-238. Ellie Weaver MD CHEMISTRY [facility] [address] [place] [address], * (ABNORMAL) BASIC METABOLIC PANEL (09/30/2023 12:00 PM [facility]) SODIUM 145 136 - 145 mmol/L 10/01/2023 4:52 AM [facility] POTASSIUM 4.3 3.5 - 5.1 mmol/L 10/01/2023 4:52 AM [facility] CHLORIDE 111(H) 98 - 107 mmol/L 10/01/2023 4:52 AM [facility] CO2,TOTAL 24 22 - 29 mmol/L 10/01/2023 4:52 AM [facility] ANION GAP 10 5 - 18 10/01/2023 4:52 AM [facility] GLUCOSE 118(H) 70 - 99 mg/dL 10/01/2023 4:52 AM [facility] CALCIUM 9.9 8.8 - 10.2 mg/dL 10/01/2023 4:52 AM [facility] BUN 15 8 - 23 mg/dL 10/01/2023 4:52 AM [facility] CREATININE 0.78 0.50 - 0.90 mg/dL 10/01/2023 4:52 AM [facility] BUN/CREAT RATIO 19 10 - 20 4 4:52 AM [facility] eGFR 78(L) >90 mL/min/1.7 3m2 10/01/2023 4:52 AM [facility] Comment:As of 2021, eG FR is calculated by the CKD-EPI creatinine equation without race adjustment. ??eGFR can be influenced by muscle mass, exercise, and diet. ??The reported eGFR is an estimation only and is only applicable if the renal function is stable. Blood BLOOD SPECIMEN / Unknown Venipuncture / Unknown 09/30/2023 12:00 PM DESIGN PAINTER 09/30/2023 12:00 PM DESIGN PAINTER Ellie Weaver MD CHEMISTRY [facility] [address] [place] [id number], * (ABNORMAL) CBC WITH AUTO DIFFERENTIAL (09/26/2023 1:11 PM DESIGN PAINTER) WHITE BLOOD COUNT 6.1 4.5 - 11.0 thou/cu mm 09/26/2023 1:16 PM DESIGN PAINTER [facility] RED BLOOD COUNT 4.11 4.00 - 5.20 mil/cu mm 09/26/2023 1:16 PM [facility] HEMOGLOBIN 14.2 12.0 - 16.0 g/dL 09/26/2023 1:16 PM [facility] HEMATOCRIT 42.2 33.0 - 51.0 % 09/26/2023 1:16 PM [facility] MCV 103(H) 80 - 100 fL 09/26/2023 1:16 PM [facility] MCH 34.5(H) 26.0 - 34.0 pg 09/26/2023 1:16 PM [facility] MCHC 33.6 32.0 - 36.0 g/dL 09/26/2023 1:16 PM [facility] RDW 12.8 11.5 - 15.5 % 09/26/2023 1:16 PM [facility] PLATELET COUNT 144 140 - 440 thou/cu mm 09/26/2023 1:16 PM [facility] MPV 9.4 6.5 - 11.0 fL 09/26/2023 1:16 PM [facility] % NEUT 62.8 % 09/26/2023 1:16 PM [facility] % LYMPH 21.8 % 09/26/2023 1:16 PM [facility] % MONO 14.6 % 09/26/2023 1:16 PM [facility] % EOS 0.5 % 09/26/2023 1:16 PM [facility] % BASO 0.3 % 09/26/2023 1:16 PM DESIGN PAINTER [facility] ABSOLUTE NEUTROPHILS 3.8 1.7 - 7.0 thou/cu mm 09/26/2023 1:16 PM DESIGN PAINTER [facility] ABSOLUTE LYMPHOCYTES 1.3 0.9 - 2.9 thou/cu mm 09/26/2023 1:16 PM DESIGN PAINTER [facility] ABSOLUTE MONOCYTES 0.9(H) <0.9 thou/cu mm 09/26/2023 1:16 PM DESIGN PAINTER [facility] ABSOLUTE EOSINOPHILS 0.0 <0.5 thou/cu mm 09/26/2023 1:16 PM DESIGN PAINTER [facility] ABSOLUTE BASOPHILS 0.0 <0.3 thou/cu mm 09/26/2023 1:16 PM DESIGN PAINTER [facility] Blood BLOOD SPECIMEN / Unknown Venipuncture / Unknown 09/26/2023 1:11 PM DESIGN PAINTER 09/26/2023 1:11 PM DESIGN PAINTER Danial Gregg MD HEMATOLOGY [facility] [address] [place] [address], * (ABNORMAL) PROTIME-INR (09/26/2023 1:11 PM DESIGN PAINTER) INR 0.9 <1.3 09/26/2023 8:42 PM DESIGN PAINTER [facility] PROTIME 10.0(L) 10.3 - 12.3 sec 09/26/2023 8:42 PM DESIGN PAINTER [facility] Blood BLOOD SPECIMEN / Unknown Venipuncture / Unknown 09/26/2023 1:11 PM DESIGN PAINTER 09/26/2023 1:11 PM DESIGN PAINTER Narrative [facility] - 09/26/2023 8:42 PM DESIGN PAINTER ?Therapeutic Range 2.0-3.0 for most anticoagulated patients 2.5-3.5 or 4.0 for high risk patients The INR is only used for patients on stable oral anticoagulant therapy. It makes no significant contribution to the diagnosis or treatment of patients whose Protime is prolonged for other reasons. INR results are increased when heparin levels exceed 1.0 U/mL, which corresponds to an aPTT >125 seconds if the patient is on UFH. Danial Gregg MD HEMATOLOGY [facility] [address] 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
[2023-10-08] MEDS: TETRACAINE 0.5% OPHTH 1 DROP EYE-RIGHT ×2 (06:20→06:25)
[2023-10-08 06:24] VITALS: BP 134/86; PULSE 69; RESP 16; TEMP 36.1; O2SAT 99; BMI 21.4
[2023-10-08] MEDS: SODIUM CHLORIDE 0.9 % (FLUSH) 10 ML SYRINGE IVF (06:40)
[2023-10-08] MEDS: KETOROLAC OPHTH 0.5% 1 DROP EYE-RIGHT ×2 (07:00→07:05)
--- NOTE | 2023-10-08 07:13 | SUR.PREOP ---
The eye drops brought by the patient (Ofloxacin) are examined and I have determined they are labeled by the patient's pharmacy for this patient as prescribed by the surgeon. The bottle is intact, recently obtained and appear to be correct.
[2023-10-08] MEDS: TETRACAINE 0.5% OPHTH 2 DROP EYE-RIGHT (07:16)
[2023-10-08] MEDS: BALANCED SALT IRRIG SOLN 15 ML EYE-RIGHT (07:22)
--- NOTE | 2023-10-08 07:24 | W.ANESCHARGE ---
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
[2023-10-08 07:46] VITALS: BP 131/86; PULSE 57; RESP 16; TEMP 36.9; O2SAT 98
--- NOTE | 2023-10-08 07:54 | P.OPTPRC_ITS ---
Procedure Note Date of procedure: 10/08/23 Will [facility] bill your pro fee for this procedure?: Yes Procedure Description: SURGEON: Lainey Saleh MD PREOPERATIVE DIAGNOSIS: Nuclear sclerotic cataract, right eye. POSTOPERATIVE DIAGNOSIS: Nuclear sclerotic cataract, right eye. NAME OF OPERATION: Phacoemulsification of cataract with posterior chamber intraocular lens implantation in the right eye. ANESTHESIA: Topical. ESTIMATED BLOOD LOSS: Less than 2 cc. COMPLICATIONS: None. PATHOLOGY SPECIMEN: None. INDICATIONS: See consult note for details. The risks, benefits and alternatives of the procedure were explained to the patient, who elected to proceed and signed informed consent to do so. PROCEDURE: The patient was brought to the pre-holding area where the right eye was identified as the operative eye. I placed my initials above this eye. The patient received eye drops consisting of 0.5% tetracaine, 1% tropicamide, 10% phenylephrine, and 0.5% ketorolac. The patient was then brought to the operating room where the right eye was again identified as the operative eye. The eye was prepped with Betadine and draped in the usual sterile ophthalmic fashion. A #15 super-sharp blade was used to create a paracentesis site. 1% non-preserved intracameral lidocaine was injected into the anterior chamber. Endocoat was injected into the anterior chamber. A 2.4 mm keratome was used to create a three-plane self-sealing incision 1 mm anterior to the temporal limbus. A cystotome was used to create an anterior capsular leaflet. The Utrata forceps were used to extend this to form a continuous curvilinear capsulorrhexis. Hydrodissection was performed. The cataract was removed with phacoemulsification using the [id number] technique. The irrigation and aspiration tip was used to remove the remaining cortex. Healon was injected into the capsular bag. An RADHA ZCB00 intraocular lens of 22.0 diopters was injected into the capsular bag. The irrigation and aspiration tip was used to remove the remaining viscoelastic. Balanced salt solution on a cannula was used to hydrate the wound, and the wound was found to be watertight. The pupil was noted to be round. DISPOSITION: The patient was taken to the recovery room and discharged to home in stable condition. The patient was instructed to call me or go to the emergency department with any sudden change, including dramatic loss of vision, severe pain in the eye or eyebrow region, nausea, or vomiting. The patient will follow up in the clinic tomorrow morning.
--- NOTE | 2023-10-08 10:05 | W.ANESCHARGE ---
Anesthesia Charges Start Date/Time Anesthesia Start Date: 10/08/23 Anesthesia Start Time: 07:13 Stop Date/Time Anesthesia Stop Date: 10/08/23 Anesthesia Stop Time: 07:48 Summary Extremes of Age - Over 70 or under 1: MDA
== END 2023-10-08 08:17 | disposition home or self-care (01) ==
PROVIDERS: PCP Family Medicine; Visit Provider Ophthalmology
PROC: (CPT 66984; principal; 2023-10-08 06:15)
DX: H25.11 Age-related nuclear cataract, right eye (principal)
CPT/HCPCS: 66984; 00142; 99100; A9270; V2632

== ENCOUNTER 2023-10-22 06:09 | Day surgery (SDC) | payer MEDICARE, OTHER, SELFPAY ==
--- NOTE | 2023-10-22 06:29 | SUR.PREOP ---
The eye drops brought by the patient (Ketorolac, Prednisolone, and Ofloxacin) are examined and I have determined they are labeled by the patient's pharmacy for this patient as prescribed by the surgeon. The bottles are intact, recently obtained and appear to be correct.
[2023-10-22] MEDS: TETRACAINE 0.5% OPHTH 1 DROP EYE-LEFT ×2 (06:36→06:46)
[2023-10-22] MEDS: KETOROLAC OPHTH 0.5% 1 DROP EYE-LEFT ×2 (06:41→06:50)
[2023-10-22] MEDS: SODIUM CHLORIDE 0.9 % (FLUSH) 10 ML SYRINGE IVF (07:12)
[2023-10-22] MEDS: TETRACAINE 0.5% OPHTH 2 DROP EYE-LEFT (07:13)
[2023-10-22] MEDS: BALANCED SALT IRRIG SOLN 15 ML EYE-LEFT (07:17)
--- NOTE | 2023-10-22 07:22 | P.ANES_ITS ---
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
--- NOTE | 2023-10-22 07:27 | W.ANESCHARGE ---
Anesthesia Charges Start Date/Time Anesthesia Start Date: 10/22/23 Anesthesia Start Time: 07:09 Stop Date/Time Anesthesia Stop Date: 10/22/23 Anesthesia Stop Time: 07:42 Summary Extremes of Age - Over 70 or under 1: MDA
--- NOTE | 2023-10-22 07:44 | W.PM.OPTPROC ---
Procedure Note Date of procedure: 10/22/23 Will [facility] bill your pro fee for this procedure?: Yes Procedure Description: SURGEON: Lainey Saleh MD PREOPERATIVE DIAGNOSIS: Nuclear sclerotic cataract, left eye. POSTOPERATIVE DIAGNOSIS: Nuclear sclerotic cataract, left eye. NAME OF OPERATION: Phacoemulsification of cataract with posterior chamber intraocular lens implantation in the left eye. ANESTHESIA: Topical. ESTIMATED BLOOD LOSS: Less than 2 cc. COMPLICATIONS: None. PATHOLOGY SPECIMEN: None. INDICATIONS: See consult note for details. The risks, benefits and alternatives of the procedure were explained to the patient, who elected to proceed and signed informed consent to do so. PROCEDURE: The patient was brought to the pre-holding area where the left eye was identified as the operative eye. I placed my initials above this eye. The patient received eye drops consisting of 0.5% tetracaine, 1% tropicamide, 10% phenylephrine, and 0.5% ketorolac. The patient was then brought to the operating room where the left eye was again identified as the operative eye. The eye was prepped with Betadine and draped in the usual sterile ophthalmic fashion. A #15 super-sharp blade was used to create a paracentesis site. 1% non-preserved intracameral lidocaine was injected into the anterior chamber. Endocoat was injected into the anterior chamber. A 2.4 mm keratome was used to create a three-plane self-sealing incision 1 mm anterior to the temporal limbus. A cystotome was used to create an anterior capsular leaflet. The Utrata forceps were used to extend this to form a continuous curvilinear capsulorrhexis. Hydrodissection was performed. The cataract was removed with phacoemulsification using the [id number] technique. The irrigation and aspiration tip was used to remove the remaining cortex. Healon was injected into the capsular bag. An RADHA [id number] intraocular lens of 22.0 diopters was injected into the capsular bag. The irrigation and aspiration tip was used to remove the remaining viscoelastic. Balanced salt solution on a cannula was used to hydrate the wound, and the wound was found to be watertight. The pupil was noted to be round. DISPOSITION: The patient was taken to the recovery room and discharged to home in stable condition. The patient was instructed to call me or go to the emergency department with any sudden change, including dramatic loss of vision, severe pain in the eye or eyebrow region, nausea, or vomiting. The patient will follow up in the clinic tomorrow morning.
[2023-10-22 07:51] VITALS: BP 125/84; PULSE 59; RESP 16; TEMP 36.4; O2SAT 97
== END 2023-10-22 08:00 | disposition home or self-care (01) ==
PROVIDERS: PCP Family Medicine; Visit Provider Ophthalmology
PROC: (CPT 66984; principal; 2023-10-22 06:15)
DX: H25.12 Age-related nuclear cataract, left eye (principal)
CPT/HCPCS: 66984; 00142; 99100; A9270; J2250; J3010; V2632

== ENCOUNTER 2024-03-10 09:00 | Outpatient (RCR) | payer MEDICARE, OTHER, SELFPAY ==
[2023-09-17 13:33] VITALS: BP 113/66; PULSE 66; RESP 16; TEMP 36.2; O2SAT 98
[2023-09-17] MEDS: ZOLEDRONIC ACID 4 MG in 0.9 % SODIUM CHLORIDE 100 ml 100 ML 420 MG IVPB (14:12)
[2023-09-17] MEDS: BORTEZOMIB SUBQ 2.5 mg/ml 2.2 MG SUBCUT (14:36)
[2023-09-24 13:16] VITALS: BP 114/68; PULSE 68; RESP 16; TEMP 36.3; O2SAT 98
[2023-09-24 13:44] LABS: Basophils Absolute Auto 0.01 K/uL (0.00-0.30); Basophils Percent Auto 0.2 % (0.0-3.0); Hematocrit 38.7 % (33.0-51.0); Immature Granulocytes Abs Auto 0.01 K/uL (0.00-0.30); Immature Granulocytes Pct Auto 0.2 %; Lymphocytes Percent Auto 7.3 % (20-44); Mean Corpuscular HGB Conc 34 gm/dL (32-36); Mean Corpuscular Hemoglobin 35 pg (26-34); Mean Corpuscular Volume 104 fL (80-100); Monocytes Absolute Auto 0.14 K/UL (0.00-0.90); Monocytes Percent Auto 2.4 % (0.0-11.0); Neutrophils Percent Auto 89.9 % (42.0-72.0); Platelet Count* 158 K/uL (140-440); RDW Coefficient of Variation % 12.7 % (11.5-15.5); Red Blood Count 3.74 m/uL (4.00-5.20); White Blood Count* 5.79 K/uL (4.50-11.00)
[2023-09-24 13:46] LABS: Slide Review Reflex No
[2023-09-24 13:51] LABS: Chloride* 109 mmol/L (96-114); Potassium* 4.1 mmol/L (3.6-5.1); Sodium* 139 mmol/L (135-149)
[2023-09-24 13:53] LABS: Creatinine* 0.7 mg/dL (0.5-1.5); Estimated Glomerular Filt Rate 88 ml/min
[2023-09-24 13:54] LABS: Alanine Aminotransferase* 26 U/L (4-35); Alkaline Phosphatase* 63 U/L (40-150); Anion Gap 6 mEq/L (7-15); Aspartate Amino Transferase* 32 U/L (12-35); Bilirubin Total* 0.8 mg/dL (0.1-1.5); Blood Urea Nitrogen* 16 mg/dL (7-30); Calcium* 10.1 mg/dL (8.4-10.6); Carbon Dioxide* 24 mmol/L (20-32); Glucose* 228 mg/dL (60-115); Total Protein* 6.1 g/dL (6.0-8.3)
[2023-09-24] MEDS: BORTEZOMIB SUBQ 2.5 mg/ml 2.2 MG SUBCUT (14:04)
[2023-09-28 05:33] LABS: Albumin 3.73 g/dL (3.75-5.01); Alpha 1 Globulin 0.24 g/dL (0.19-0.46); Alpha 2 Globulin 0.55 g/dL (0.48-1.05); Immunofixation IFE Done; Immunoglobulin A 41 mg/dL (68-408); Immunoglobulin G 425 mg/dL (768-1632); Immunoglobulin M 13 mg/dL (35-263); Kappa Qnt Free Light Chains 8.75 mg/L (3.30-19.40); Lambda Qnt Free Light Chains 5.48 mg/L (5.71-26.30); Total Protein, Serum 5.6 g/dL (6.3-8.2)
[2023-10-01 13:23] VITALS: BP 117/74; PULSE 69; RESP 16; TEMP 36.8; O2SAT 97
[2023-10-01] MEDS: BORTEZOMIB SUBQ 2.5 mg/ml 2.2 MG SUBCUT (13:59)
[2023-10-15 13:33] VITALS: BP 105/68; PULSE 70; RESP 16; TEMP 36.6; O2SAT 96
[2023-10-15 13:38] LABS: Basophils Percent Auto 0.3 % (0.0-3.0); Eosinophils Percent Auto 1.5 % (0.0-7.0); Hematocrit 41.4 % (33.0-51.0); Hemoglobin* 13.6 gm/dL (12.0-16.0); Immature Granulocytes Pct Auto 0.3 %; Lymphocytes Percent Auto 19.9 % (20-44); Mean Corpuscular HGB Conc 33 gm/dL (32-36); Mean Corpuscular Hemoglobin 34 pg (26-34); Mean Corpuscular Volume 102 fL (80-100); Monocytes Percent Auto 11.4 % (0.0-11.0); Neutrophils Percent Auto 66.6 % (42.0-72.0); Platelet Count* 203 K/uL (140-440); RDW Coefficient of Variation % 12.5 % (11.5-15.5); Red Blood Count 4.06 m/uL (4.00-5.20); White Blood Count* 3.96 K/uL (4.50-11.00)
[2023-10-15 13:44] LABS: Slide Review Reflex No
[2023-10-15 13:53] LABS: Chloride* 107 mmol/L (96-114)
[2023-10-15 13:54] LABS: Potassium* 3.8 mmol/L (3.6-5.1); Sodium* 140 mmol/L (135-149)
[2023-10-15 13:57] LABS: Alanine Aminotransferase* 30 U/L (4-35); Alkaline Phosphatase* 59 U/L (40-150); Anion Gap 9 mEq/L (7-15); Aspartate Amino Transferase* 38 U/L (12-35); Bilirubin Total* 0.6 mg/dL (0.1-1.5); Blood Urea Nitrogen* 16 mg/dL (7-30); Calcium* 10.7 mg/dL (8.4-10.6); Carbon Dioxide* 24 mmol/L (20-32); Creatinine* 0.8 mg/dL (0.5-1.5); Estimated Glomerular Filt Rate 75 ml/min; Glucose* 100 mg/dL (60-115); Total Protein* 6.4 g/dL (6.0-8.3)
[2023-10-15] MEDS: BORTEZOMIB SUBQ 2.5 mg/ml 2.2 MG SUBCUT (14:39)
--- NOTE | 2023-10-15 15:17 | ONC.NURNOTE ---
Addendum entered by Tanya Paredes RN 10/16/23 10:07: Written order to hold Calcium supplement faxed to Nataliia Fernandez at [facility]. Original Note: Pt here for labs and Velcade today. Ca elevated at 10.7; last Zometa 1 mo ago. Pt takes Calcium Carbonate 600mg oral supplement daily. Reviewed with Lianna Sotelo APRN. Hold Ca Carbonate oral; recheck Ca level next week. LM with Nataliia, nurse and med mgt at [facility]. Ca recheck 10/19 as pt has 2nd cataract surgery 10/21. Copy of calendar reviewed with pt; her daughter Christina will be in town and will bring her Friday.
[2023-10-20 14:19] LABS: Calcium* 10.2 mg/dL (8.4-10.6)
--- NOTE | 2023-10-29 10:44 | URNOTE ---
Request received for authorization for Daratumumab Hyaluronidase-[facility] (Darzalex Faspro) ([id number]). Prior authorization is not required as services are based on medical necessity and follow Medicare guidelines.
[2023-10-29 13:10] VITALS: BP 115/74; PULSE 72; RESP 16; TEMP 36.3; O2SAT 98
[2023-10-29] MEDS: BORTEZOMIB SUBQ 2.5 mg/ml 2.2 MG SUBCUT (14:16)
--- NOTE | 2023-11-03 10:01 | ONC.NURNOTE ---
Addendum entered by Lisa Najera RN 11/03/23 13:27: Per clinic nurse, darzalex to be held until 11/12/2023 meeting with sons. Son, Duke was notified. Original Note: Patient called office today very teary and confused over upcoming appointments. She plans to have her sons come with her this Friday11/05/2023. Patient is to receive her first darzalex fastpro. She has an appointment with Dr. kennedy the following week. Nursing spent 20 minutes on the phone with patient trying to go over her schedule. Nursing to call and review with her son about upcoming appointments. Will leave note for provider prior to calling son to see if should delay darzalex until after seen by provider. Nursing staff would like the premeds associatd with darzalex addressed with significant change in mental status.
[2023-11-05 11:53] VITALS: BP 111/73; PULSE 73; RESP 16; TEMP 35.9; O2SAT 100
[2023-11-05 11:54] LABS: Basophils Percent Auto 0.7 % (0.0-3.0); Eosinophils Percent Auto 0.4 % (0.0-7.0); Hematocrit 42.8 % (33.0-51.0); Hemoglobin* 13.8 gm/dL (12.0-16.0); Lymphocytes Percent Auto 26.5 % (20-44); Mean Corpuscular HGB Conc 32 gm/dL (32-36); Mean Corpuscular Hemoglobin 33 pg (26-34); Mean Corpuscular Volume 102 fL (80-100); Monocytes Percent Auto 11.8 % (0.0-11.0); Neutrophils Percent Auto 60.6 % (42.0-72.0); Platelet Count* 156 K/uL (140-440); RDW Coefficient of Variation % 12.3 % (11.5-15.5); Red Blood Count 4.18 m/uL (4.00-5.20); White Blood Count* 2.79 K/uL (4.50-11.00)
[2023-11-05 11:57] LABS: Slide Review Reflex No
[2023-11-05 12:04] LABS: Chloride* 112 mmol/L (96-114)
[2023-11-05 12:05] LABS: Potassium* 3.5 mmol/L (3.6-5.1); Sodium* 144 mmol/L (135-149)
[2023-11-05 12:08] LABS: Alanine Aminotransferase* 32 U/L (4-35); Alkaline Phosphatase* 54 U/L (40-150); Anion Gap 3 mEq/L (7-15); Aspartate Amino Transferase* 38 U/L (12-35); Bilirubin Total* 0.7 mg/dL (0.1-1.5); Blood Urea Nitrogen* 16 mg/dL (7-30); Carbon Dioxide* 29 mmol/L (20-32); Creatinine* 0.6 mg/dL (0.5-1.5); Estimated Glomerular Filt Rate 92 ml/min; Glucose* 93 mg/dL (60-115); Total Protein* 6.3 g/dL (6.0-8.3)
[2023-11-05 12:09] LABS: Calcium* 10.6 mg/dL (8.4-10.6)
[2023-11-05] MEDS: BORTEZOMIB SUBQ 2.5 mg/ml 2.2 MG SUBCUT (12:40)
[2023-11-12 12:29] LABS: Eosinophils Percent Auto 0.6 % (0.0-7.0); Hematocrit 42.5 % (33.0-51.0); Hemoglobin* 13.8 gm/dL (12.0-16.0); Lymphocytes Percent Auto 20.4 % (20-44); Mean Corpuscular HGB Conc 33 gm/dL (32-36); Mean Corpuscular Hemoglobin 33 pg (26-34); Mean Corpuscular Volume 103 fL (80-100); Monocytes Percent Auto 12.6 % (0.0-11.0); Neutrophils Percent Auto 66.4 % (42.0-72.0); Platelet Count* 157 K/uL (140-440); RDW Coefficient of Variation % 12.3 % (11.5-15.5); Red Blood Count 4.14 m/uL (4.00-5.20); White Blood Count* 3.18 K/uL (4.50-11.00)
[2023-11-12 12:31] LABS: Slide Review Reflex No
[2023-11-12 12:46] LABS: Albumin* 4.2 g/dL (3.3-5.0); Chloride* 110 mmol/L (96-114)
[2023-11-12 12:47] LABS: Potassium* 3.4 mmol/L (3.6-5.1); Sodium* 142 mmol/L (135-149)
[2023-11-12 12:49] LABS: Alanine Aminotransferase* 30 U/L (4-35); Alkaline Phosphatase* 59 U/L (40-150); Anion Gap 4 mEq/L (7-15); Aspartate Amino Transferase* 37 U/L (12-35); Bilirubin Total* 0.9 mg/dL (0.1-1.5); Blood Urea Nitrogen* 21 mg/dL (7-30); Carbon Dioxide* 28 mmol/L (20-32); Creatinine* 0.7 mg/dL (0.5-1.5); Estimated Glomerular Filt Rate 88 ml/min; Glucose* 67 mg/dL (60-115); Total Protein* 6.4 g/dL (6.0-8.3)
[2023-11-12 12:50] LABS: Calcium* 10.6 mg/dL (8.4-10.6)
[2023-11-13 11:41] VITALS: BP 124/66; PULSE 80; RESP 16; TEMP 36; O2SAT 98
[2023-11-13] MEDS: dexAMETHasone 20 MG in 0.9 % SODIUM CHLORIDE 100 ml 100 ML 408 MG IVPB (12:20)
[2023-11-13] MEDS: diphenhydrAMINE 25 MG CAPSULE 50 MG PO (12:20)
[2023-11-13] MEDS: ACETAMINOPHEN 325 MG TABLET 650 MG PO (12:21)
[2023-11-13] MEDS: DARATUMUMAB-HYALURONIDASE-FIHJ 15 ML SUBCUT (13:40)
[2023-11-13] MEDS: BORTEZOMIB SUBQ 2.5 mg/ml 2.2 MG SUBCUT (13:40)
--- NOTE | 2023-11-13 14:30 | ONC.NURNOTE ---
Treatment change with Darzolex handouts reviewed with patient and son Gaston yesterday discussed dex dosing change- called to [facility], [facility] RX [facility] to [facility] and eRx sent to [facility] with next appts given to patient and son, with copies for [facility] staff reviewed DASHAWN and treatment consents- all completed questions addressed
--- NOTE | 2023-11-13 15:06 | ONC.NURNOTE ---
PSDS =3 worry, memory concentration, fatigue work and taking care of others were also checked no SS consult at this time
--- NOTE | 2023-11-13 16:20 | ONC.NURNOTE ---
Pt tolerated 1st Darzalex FasPro well. Son, Gaston, accompanied her. Monitored x 90 min; no redness/irritation at injection site.
[2023-11-19 09:26] LABS: Basophils Percent Auto 0.2 % (0.0-3.0); Eosinophils Percent Auto 1.4 % (0.0-7.0); Hematocrit 42.2 % (33.0-51.0); Hemoglobin* 13.9 gm/dL (12.0-16.0); Immature Granulocytes Pct Auto 0.7 %; Lymphocytes Percent Auto 11.8 % (20-44); Mean Corpuscular HGB Conc 33 gm/dL (32-36); Mean Corpuscular Hemoglobin 34 pg (26-34); Mean Corpuscular Volume 102 fL (80-100); Monocytes Percent Auto 13.2 % (0.0-11.0); Neutrophils Percent Auto 72.7 % (42.0-72.0); Platelet Count* 140 K/uL (140-440); RDW Coefficient of Variation % 12.4 % (11.5-15.5); Red Blood Count 4.14 m/uL (4.00-5.20); White Blood Count* 4.23 K/uL (4.50-11.00)
[2023-11-19 09:36] LABS: Albumin* 4.1 g/dL (3.3-5.0); Chloride* 109 mmol/L (96-114)
[2023-11-19 09:37] LABS: Potassium* 3.3 mmol/L (3.6-5.1); Slide Review Reflex No; Sodium* 142 mmol/L (135-149)
[2023-11-19 09:39] LABS: Anion Gap 4 mEq/L (7-15); Aspartate Amino Transferase* 39 U/L (12-35); Bilirubin Total* 1.1 mg/dL (0.1-1.5); Carbon Dioxide* 29 mmol/L (20-32); Creatinine* 0.6 mg/dL (0.5-1.5); Estimated Glomerular Filt Rate 92 ml/min; Total Protein* 6.6 g/dL (6.0-8.3)
[2023-11-19 09:40] LABS: Alanine Aminotransferase* 33 U/L (4-35); Alkaline Phosphatase* 66 U/L (40-150); Blood Urea Nitrogen* 15 mg/dL (7-30); Calcium* 10.4 mg/dL (8.4-10.6); Glucose* 120 mg/dL (60-115)
[2023-11-19] MEDS: diphenhydrAMINE 25 MG CAPSULE 50 MG PO (11:09)
[2023-11-19] MEDS: ACETAMINOPHEN 325 MG TABLET 650 MG PO (11:09)
[2023-11-19] MEDS: dexAMETHasone 20 MG in 0.9 % SODIUM CHLORIDE 100 ml 100 ML 408 MG IVPB (11:09)
[2023-11-19] MEDS: DARATUMUMAB-HYALURONIDASE-FIHJ 15 ML SUBCUT (12:36)
[2023-11-19] MEDS: BORTEZOMIB SUBQ 2.5 mg/ml 2.2 MG SUBCUT (12:36)
[2023-11-26 10:39] LABS: Basophils Percent Auto 0.3 % (0.0-3.0); Eosinophils Percent Auto 0.5 % (0.0-7.0); Hemoglobin* 13.2 gm/dL (12.0-16.0); Lymphocytes Percent Auto 12.1 % (20-44); Mean Corpuscular HGB Conc 32 gm/dL (32-36); Mean Corpuscular Hemoglobin 33 pg (26-34); Mean Corpuscular Volume 102 fL (80-100); Monocytes Percent Auto 12.6 % (0.0-11.0); Neutrophils Percent Auto 74.5 % (42.0-72.0); Platelet Count* 156 K/uL (140-440); RDW Coefficient of Variation % 12.4 % (11.5-15.5); Red Blood Count 4.01 m/uL (4.00-5.20); White Blood Count* 3.98 K/uL (4.50-11.00)
[2023-11-26 10:42] LABS: Slide Review Reflex No
[2023-11-26 10:44] VITALS: BP 100/63; PULSE 57; RESP 16; TEMP 36.5; O2SAT 97
[2023-11-26 10:52] LABS: Albumin* 3.7 g/dL (3.3-5.0)
[2023-11-26 10:53] LABS: Chloride* 110 mmol/L (96-114); Potassium* 3.6 mmol/L (3.6-5.1); Sodium* 140 mmol/L (135-149)
[2023-11-26 10:55] LABS: Aspartate Amino Transferase* 33 U/L (12-35); Carbon Dioxide* 29 mmol/L (20-32); Creatinine* 0.7 mg/dL (0.5-1.5); Est. Creatinine Clearance* 45.09; Estimated Glomerular Filt Rate 88 ml/min; Total Protein* 6.1 g/dL (6.0-8.3)
[2023-11-26 10:56] LABS: Alanine Aminotransferase* 31 U/L (4-35); Alkaline Phosphatase* 63 U/L (40-150); Blood Urea Nitrogen* 19 mg/dL (7-30); Calcium* 10.3 mg/dL (8.4-10.6); Glucose* 89 mg/dL (60-115)
[2023-11-26 10:59] LABS: Anion Gap 1 mEq/L (7-15)
[2023-11-26] MEDS: diphenhydrAMINE 25 MG CAPSULE 50 MG PO (11:15)
[2023-11-26] MEDS: ACETAMINOPHEN 325 MG TABLET 650 MG PO (11:16)
[2023-11-26] MEDS: dexAMETHasone 20 MG in 0.9 % SODIUM CHLORIDE 100 ml 100 ML 408 MG IVPB (11:17)
[2023-11-26] MEDS: 0.9 % SODIUM CHLORIDE 250 ml IV (11:33)
[2023-11-26] MEDS: SODIUM CHLORIDE 0.9 % (FLUSH) 10 ML SYRINGE IVF (11:33)
[2023-11-26] MEDS: BORTEZOMIB SUBQ 2.5 mg/ml 2.2 MG SUBCUT (12:29)
[2023-11-26] MEDS: DARATUMUMAB-HYALURONIDASE-FIHJ 15 ML SUBCUT (12:30)
[2023-12-03 10:17] LABS: Basophils Percent Auto 0.3 % (0.0-3.0); Eosinophils Percent Auto 1.2 % (0.0-7.0); Hematocrit 41.5 % (33.0-51.0); Hemoglobin* 13.6 gm/dL (12.0-16.0); Lymphocytes Percent Auto 15.9 % (20-44); Mean Corpuscular HGB Conc 33 gm/dL (32-36); Mean Corpuscular Hemoglobin 34 pg (26-34); Mean Corpuscular Volume 102 fL (80-100); Monocytes Percent Auto 14.6 % (0.0-11.0); Platelet Count* 157 K/uL (140-440); RDW Coefficient of Variation % 12.4 % (11.5-15.5); Red Blood Count 4.06 m/uL (4.00-5.20); White Blood Count* 3.21 K/uL (4.50-11.00)
[2023-12-03 10:20] VITALS: BP 103/68; PULSE 68; RESP 16; TEMP 36.2; O2SAT 98
[2023-12-03 10:28] LABS: Slide Review Reflex No
[2023-12-03 10:31] LABS: Chloride* 112 mmol/L (96-114); Sodium* 142 mmol/L (135-149)
[2023-12-03 10:32] LABS: Potassium* 3.7 mmol/L (3.6-5.1)
[2023-12-03 10:34] LABS: Alanine Aminotransferase* 37 U/L (4-35); Alkaline Phosphatase* 61 U/L (40-150); Anion Gap -1 mEq/L (7-15); Aspartate Amino Transferase* 37 U/L (12-35); Bilirubin Total* 1.3 mg/dL (0.1-1.5); Blood Urea Nitrogen* 18 mg/dL (7-30); Carbon Dioxide* 31 mmol/L (20-32); Creatinine* 0.7 mg/dL (0.5-1.5); Est. Creatinine Clearance* 45.09; Estimated Glomerular Filt Rate 88 ml/min; Glucose* 105 mg/dL (60-115); Total Protein* 6.3 g/dL (6.0-8.3)
[2023-12-03 10:35] LABS: Calcium* 10.1 mg/dL (8.4-10.6)
[2023-12-03] MEDS: diphenhydrAMINE 25 MG CAPSULE 50 MG PO (10:44)
[2023-12-03] MEDS: dexAMETHasone 4 MG TABLET 20 MG PO (10:44)
[2023-12-03] MEDS: ACETAMINOPHEN 325 MG TABLET 650 MG PO (10:44)
[2023-12-03] MEDS: DARATUMUMAB-HYALURONIDASE-FIHJ 15 ML SUBCUT (11:53)
[2023-12-03] MEDS: BORTEZOMIB SUBQ 2.5 mg/ml 2.2 MG SUBCUT (11:53)
[2023-12-10 09:24] VITALS: BP 106/68; PULSE 92; RESP 16; TEMP 36.4; O2SAT 98
[2023-12-10 09:26] LABS: Basophils Percent Auto 0.3 % (0.0-3.0); Eosinophils Percent Auto 0.7 % (0.0-7.0); Hematocrit 39.7 % (33.0-51.0); Hemoglobin* 12.9 gm/dL (12.0-16.0); Lymphocytes Percent Auto 15.9 % (20-44); Mean Corpuscular HGB Conc 33 gm/dL (32-36); Mean Corpuscular Hemoglobin 34 pg (26-34); Mean Corpuscular Volume 103 fL (80-100); Monocytes Percent Auto 12.5 % (0.0-11.0); Neutrophils Percent Auto 70.6 % (42.0-72.0); Platelet Count* 150 K/uL (140-440); RDW Coefficient of Variation % 12.6 % (11.5-15.5); Red Blood Count 3.84 m/uL (4.00-5.20); White Blood Count* 2.89 K/uL (4.50-11.00)
[2023-12-10 09:29] LABS: Slide Review Reflex No
[2023-12-10 09:42] LABS: Albumin* 3.9 g/dL (3.3-5.0); Chloride* 110 mmol/L (96-114)
[2023-12-10 09:43] LABS: Potassium* 3.3 mmol/L (3.6-5.1); Sodium* 139 mmol/L (135-149)
[2023-12-10 09:45] LABS: Alkaline Phosphatase* 57 U/L (40-150); Anion Gap 1 mEq/L (7-15); Aspartate Amino Transferase* 34 U/L (12-35); Bilirubin Total* 1.2 mg/dL (0.1-1.5); Blood Urea Nitrogen* 18 mg/dL (7-30); Carbon Dioxide* 28 mmol/L (20-32); Creatinine* 0.7 mg/dL (0.5-1.5); Est. Creatinine Clearance* 45.09; Estimated Glomerular Filt Rate 88 ml/min; Total Protein* 6.2 g/dL (6.0-8.3)
[2023-12-10 09:46] LABS: Alanine Aminotransferase* 29 U/L (4-35); Calcium* 9.9 mg/dL (8.4-10.6); Glucose* 99 mg/dL (60-115)
[2023-12-10] MEDS: diphenhydrAMINE 25 MG CAPSULE 50 MG PO (10:22)
[2023-12-10] MEDS: dexAMETHasone 4 MG TABLET 20 MG PO (10:23)
[2023-12-10] MEDS: ACETAMINOPHEN 325 MG TABLET 650 MG PO (10:23)
[2023-12-10] MEDS: BORTEZOMIB SUBQ 2.5 mg/ml 2.2 MG SUBCUT (11:41)
[2023-12-10] MEDS: DARATUMUMAB-HYALURONIDASE-FIHJ 15 ML SUBCUT (11:41)
--- NOTE | 2023-12-10 15:43 | ONC.NURNOTE ---
Addendum entered by Tanya Paredes RN 12/10/23 15:52: Received call from from Nataliia. Pt's prescription for KCl was for #7; she has been off it for ~1 wk[address] Will review [address]. Pandya. Original Note: Pt's K 3.3 today. Lm for Nataliia, nurse at [facility] [phone] to clarify if she has been taking her Kcl 20 mEq daily as prescribed.
--- NOTE | 2023-12-15 16:08 | ONC.NURNOTE ---
Addendum entered by Tanya Paredes RN 12/15/23 16:18: Reviewed appt schedule with son Yousif [phone]. Original Note: Pt called reporting symptoms of a cold x 3-4 days that are improving. She reports voice changes, some pain with swallowing and a persistent runny nose. She is scheduled to see Ya and have treatment tomorrow 12/15. Reviewed with Lianna Sotelo APRN. Reschedule MD visit and treatment out 1 wk. Appt moved to 12/22 9:15 Labs/Ya Virtual/Treatment.
--- NOTE | 2023-12-16 08:15 | ONC.NURNOTE ---
Patient left message on 12/14/33 at 1700 that she did a home covid test and that it was negative.
[2023-12-23 08:50] LABS: Basophils Percent Auto 0.3 % (0.0-3.0); Eosinophils Percent Auto 0.3 % (0.0-7.0); Hematocrit 40.1 % (33.0-51.0); Hemoglobin* 13.2 gm/dL (12.0-16.0); Immature Granulocytes Pct Auto 0.3 %; Lymphocytes Percent Auto 14.3 % (20-44); Mean Corpuscular HGB Conc 33 gm/dL (32-36); Mean Corpuscular Hemoglobin 34 pg (26-34); Mean Corpuscular Volume 102 fL (80-100); Monocytes Percent Auto 13.7 % (0.0-11.0); Neutrophils Percent Auto 71.1 % (42.0-72.0); Platelet Count* 238 K/uL (140-440); RDW Coefficient of Variation % 12.6 % (11.5-15.5); Red Blood Count 3.94 m/uL (4.00-5.20); White Blood Count* 3.28 K/uL (4.50-11.00)
[2023-12-23 08:53] LABS: Slide Review Reflex No
[2023-12-23 09:11] LABS: Albumin* 4.1 g/dL (3.3-5.0)
[2023-12-23 09:12] LABS: Chloride* 109 mmol/L (96-114); Potassium* 3.6 mmol/L (3.6-5.1); Sodium* 140 mmol/L (135-149)
[2023-12-23 09:14] LABS: Anion Gap 3 mEq/L (7-15); Aspartate Amino Transferase* 38 U/L (12-35); Bilirubin Total* 0.6 mg/dL (0.1-1.5); Carbon Dioxide* 28 mmol/L (20-32); Creatinine* 0.8 mg/dL (0.5-1.5); Est. Creatinine Clearance* 45.09; Estimated Glomerular Filt Rate 75 ml/min
[2023-12-23 09:15] LABS: Alanine Aminotransferase* 33 U/L (4-35); Alkaline Phosphatase* 77 U/L (40-150); Blood Urea Nitrogen* 17 mg/dL (7-30); Calcium* 10.5 mg/dL (8.4-10.6); Glucose* 89 mg/dL (60-115); Total Protein* 6.6 g/dL (6.0-8.3)
[2023-12-23] MEDS: ACETAMINOPHEN 325 MG TABLET 650 MG PO (10:48)
[2023-12-23] MEDS: diphenhydrAMINE 25 MG CAPSULE 50 MG PO (10:49)
[2023-12-23] MEDS: dexAMETHasone 4 MG TABLET 20 MG PO (10:49)
[2023-12-23] MEDS: DARATUMUMAB-HYALURONIDASE-FIHJ 15 ML SUBCUT (11:54)
[2023-12-23] MEDS: BORTEZOMIB SUBQ 2.5 mg/ml 2.2 MG SUBCUT (11:55)
[2023-12-31 09:12] LABS: Basophils Percent Auto 0.4 % (0.0-3.0); Eosinophils Percent Auto 0.4 % (0.0-7.0); Hematocrit 39.4 % (33.0-51.0); Hemoglobin* 12.7 gm/dL (12.0-16.0); Mean Corpuscular HGB Conc 32 gm/dL (32-36); Mean Corpuscular Hemoglobin 33 pg (26-34); Mean Corpuscular Volume 103 fL (80-100); Monocytes Percent Auto 14.1 % (0.0-11.0); Neutrophils Percent Auto 68.1 % (42.0-72.0); Platelet Count* 152 K/uL (140-440); RDW Coefficient of Variation % 12.9 % (11.5-15.5); Red Blood Count 3.82 m/uL (4.00-5.20); White Blood Count* 2.77 K/uL (4.50-11.00)
[2023-12-31 09:18] LABS: Slide Review Reflex No
[2023-12-31 09:30] VITALS: BP 96/60; PULSE 62; RESP 16; TEMP 36.1; O2SAT 98
[2023-12-31 09:33] LABS: Albumin* 3.8 g/dL (3.3-5.0); Chloride* 110 mmol/L (96-114)
[2023-12-31 09:34] LABS: Potassium* 3.6 mmol/L (3.6-5.1); Sodium* 141 mmol/L (135-149)
[2023-12-31 09:36] LABS: Anion Gap 4 mEq/L (7-15); Aspartate Amino Transferase* 36 U/L (12-35); Bilirubin Total* 0.9 mg/dL (0.1-1.5); Carbon Dioxide* 27 mmol/L (20-32); Creatinine* 0.7 mg/dL (0.5-1.5); Est. Creatinine Clearance* 45.09; Estimated Glomerular Filt Rate 88 ml/min
[2023-12-31 09:37] LABS: Alanine Aminotransferase* 30 U/L (4-35); Alkaline Phosphatase* 63 U/L (40-150); Blood Urea Nitrogen* 19 mg/dL (7-30); Calcium* 9.6 mg/dL (8.4-10.6); Glucose* 82 mg/dL (60-115); Total Protein* 6.2 g/dL (6.0-8.3)
[2023-12-31] MEDS: dexAMETHasone 4 MG TABLET 20 MG PO (10:11)
[2023-12-31] MEDS: ACETAMINOPHEN 325 MG TABLET 650 MG PO (10:12)
[2023-12-31] MEDS: diphenhydrAMINE 25 MG CAPSULE 50 MG PO (10:12)
[2023-12-31] MEDS: 0.9 % SODIUM CHLORIDE 250 ml IV (10:39)
[2023-12-31] MEDS: ZOLEDRONIC ACID 4 MG in 0.9 % SODIUM CHLORIDE 100 ml 100 ML 420 MG IVPB (10:39)
[2023-12-31] MEDS: SODIUM CHLORIDE 0.9 % (FLUSH) 10 ML SYRINGE IVF (10:40)
[2023-12-31] MEDS: DARATUMUMAB-HYALURONIDASE-FIHJ 15 ML SUBCUT (11:31)
[2023-12-31] MEDS: BORTEZOMIB SUBQ 2.5 mg/ml 2.2 MG SUBCUT (11:32)
[2024-01-07 09:05] VITALS: BP 107/73; PULSE 73; RESP 16; TEMP 36.2; O2SAT 99
[2024-01-07 09:09] LABS: Basophils Percent Auto 0.3 % (0.0-3.0); Eosinophils Percent Auto 0.9 % (0.0-7.0); Hematocrit 40.6 % (33.0-51.0); Hemoglobin* 13.4 gm/dL (12.0-16.0); Lymphocytes Percent Auto 17.1 % (20-44); Mean Corpuscular HGB Conc 33 gm/dL (32-36); Mean Corpuscular Hemoglobin 34 pg (26-34); Mean Corpuscular Volume 103 fL (80-100); Neutrophils Percent Auto 66.7 % (42.0-72.0); Platelet Count* 147 K/uL (140-440); RDW Coefficient of Variation % 12.9 % (11.5-15.5); Red Blood Count 3.95 m/uL (4.00-5.20); White Blood Count* 3.21 K/uL (4.50-11.00)
[2024-01-07 09:17] LABS: Albumin* 4.2 g/dL (3.3-5.0); Chloride* 111 mmol/L (96-114); Potassium* 3.6 mmol/L (3.6-5.1); Sodium* 139 mmol/L (135-149)
[2024-01-07 09:18] LABS: Slide Review Reflex No
[2024-01-07 09:19] LABS: Creatinine* 0.7 mg/dL (0.5-1.5); Est. Creatinine Clearance* 45.09; Estimated Glomerular Filt Rate 88 ml/min
[2024-01-07 09:20] LABS: Alanine Aminotransferase* 27 U/L (4-35); Alkaline Phosphatase* 65 U/L (40-150); Anion Gap 2 mEq/L (7-15); Aspartate Amino Transferase* 32 U/L (12-35); Bilirubin Total* 1.1 mg/dL (0.1-1.5); Blood Urea Nitrogen* 18 mg/dL (7-30); Calcium* 9.5 mg/dL (8.4-10.6); Carbon Dioxide* 26 mmol/L (20-32); Glucose* 120 mg/dL (60-115); Total Protein* 6.6 g/dL (6.0-8.3)
[2024-01-07] MEDS: dexAMETHasone 4 MG TABLET 20 MG PO (09:34)
[2024-01-07] MEDS: ACETAMINOPHEN 325 MG TABLET 650 MG PO (09:35)
[2024-01-07] MEDS: diphenhydrAMINE 25 MG CAPSULE 50 MG PO (09:35)
[2024-01-07] MEDS: BORTEZOMIB SUBQ 2.5 mg/ml 2.2 MG SUBCUT (10:43)
[2024-01-07] MEDS: DARATUMUMAB-HYALURONIDASE-FIHJ 15 ML SUBCUT (10:43)
[2024-01-14 08:20] VITALS: BP 114/70; PULSE 87; RESP 16; TEMP 36.6; O2SAT 97
[2024-01-14 08:35] LABS: Basophils Percent Auto 0.4 % (0.0-3.0); Eosinophils Percent Auto 1.2 % (0.0-7.0); Hematocrit 42.2 % (33.0-51.0); Hemoglobin* 13.7 gm/dL (12.0-16.0); Lymphocytes Percent Auto 20.4 % (20-44); Mean Corpuscular HGB Conc 33 gm/dL (32-36); Mean Corpuscular Hemoglobin 33 pg (26-34); Mean Corpuscular Volume 102 fL (80-100); Monocytes Percent Auto 13.1 % (0.0-11.0); Neutrophils Percent Auto 64.9 % (42.0-72.0); Platelet Count* 152 K/uL (140-440); RDW Coefficient of Variation % 12.8 % (11.5-15.5); Red Blood Count 4.13 m/uL (4.00-5.20)
[2024-01-14 08:51] LABS: Albumin* 4.2 g/dL (3.3-5.0); Chloride* 111 mmol/L (96-114)
[2024-01-14 08:52] LABS: Potassium* 3.4 mmol/L (3.6-5.1); Sodium* 141 mmol/L (135-149)
[2024-01-14 08:54] LABS: Anion Gap 1 mEq/L (7-15); Bilirubin Total* 1.2 mg/dL (0.1-1.5); Carbon Dioxide* 29 mmol/L (20-32); Creatinine* 0.8 mg/dL (0.5-1.5); Est. Creatinine Clearance* 45.09; Estimated Glomerular Filt Rate 75 ml/min; Total Protein* 6.9 g/dL (6.0-8.3)
[2024-01-14 08:55] LABS: Alanine Aminotransferase* 30 U/L (4-35); Alkaline Phosphatase* 64 U/L (40-150); Aspartate Amino Transferase* 34 U/L (12-35); Blood Urea Nitrogen* 18 mg/dL (7-30); Calcium* 10.1 mg/dL (8.4-10.6); Glucose* 85 mg/dL (60-115)
[2024-01-14 08:59] LABS: Slide Review Reflex No
[2024-01-14] MEDS: dexAMETHasone 4 MG TABLET 20 MG PO (09:10)
[2024-01-14] MEDS: diphenhydrAMINE 25 MG CAPSULE 50 MG PO (09:10)
[2024-01-14] MEDS: ACETAMINOPHEN 325 MG TABLET 650 MG PO (09:10)
--- NOTE | 2024-01-14 09:39 | ONC.NURNOTE ---
pot. 3.4 enc foods high in potassium like patatoes . OJ. bananas
[2024-01-14] MEDS: DARATUMUMAB-HYALURONIDASE-FIHJ 15 ML SUBCUT (10:13)
[2024-01-14] MEDS: BORTEZOMIB SUBQ 2.5 mg/ml 2.2 MG SUBCUT (10:13)
[2024-01-21 08:40] VITALS: BP 112/68; PULSE 76; TEMP 36.2; O2SAT 97
[2024-01-21] MEDS: BORTEZOMIB SUBQ 2.5 mg/ml 2.2 MG SUBCUT (09:33)
[2024-01-24 10:50] LABS: Albumin 3.61 g/dL (3.75-5.01); Alpha 1 Globulin 0.21 g/dL (0.19-0.46); Alpha 2 Globulin 0.56 g/dL (0.48-1.05); Immunofixation IFE Done; Immunoglobulin A 14 mg/dL (68-408); Immunoglobulin G 510 mg/dL (768-1632); Immunoglobulin M 23 mg/dL (35-263); Kappa Qnt Free Light Chains 4.61 mg/L (3.30-19.40); Lambda Qnt Free Light Chains 5.77 mg/L (5.71-26.30); Total Protein, Serum 5.5 g/dL (6.3-8.2)
[2024-01-28 08:39] LABS: Basophils Percent Auto 0.4 % (0.0-3.0); Eosinophils Percent Auto 0.4 % (0.0-7.0); Hematocrit 41.5 % (33.0-51.0); Hemoglobin* 13.6 gm/dL (12.0-16.0); Lymphocytes Percent Auto 22.6 % (20-44); Mean Corpuscular HGB Conc 33 gm/dL (32-36); Mean Corpuscular Hemoglobin 33 pg (26-34); Mean Corpuscular Volume 101 fL (80-100); Monocytes Percent Auto 15.9 % (0.0-11.0); Neutrophils Percent Auto 60.7 % (42.0-72.0); Platelet Count* 142 K/uL (140-440); White Blood Count* 2.39 K/uL (4.50-11.00)
[2024-01-28 08:49] LABS: Slide Review Reflex No
[2024-01-28 09:01] LABS: Albumin* 4.3 g/dL (3.3-5.0)
[2024-01-28 09:02] LABS: Chloride* 109 mmol/L (96-114); Potassium* 3.6 mmol/L (3.6-5.1); Sodium* 141 mmol/L (135-149)
[2024-01-28 09:04] VITALS: BP 97/64; PULSE 71; RESP 16; TEMP 36.1; O2SAT 97
[2024-01-28 09:04] LABS: Anion Gap 5 mEq/L (7-15); Aspartate Amino Transferase* 40 U/L (12-35); Bilirubin Total* 1.2 mg/dL (0.1-1.5); Carbon Dioxide* 27 mmol/L (20-32); Creatinine* 0.7 mg/dL (0.5-1.5); Est. Creatinine Clearance* 45.09; Estimated Glomerular Filt Rate 88 ml/min; Total Protein* 6.5 g/dL (6.0-8.3)
[2024-01-28 09:05] LABS: Alanine Aminotransferase* 33 U/L (4-35); Alkaline Phosphatase* 62 U/L (40-150); Blood Urea Nitrogen* 16 mg/dL (7-30); Calcium* 10.3 mg/dL (8.4-10.6); Glucose* 114 mg/dL (60-115)
[2024-01-28] MEDS: ACETAMINOPHEN 325 MG TABLET 650 MG PO (09:33)
[2024-01-28] MEDS: dexAMETHasone 4 MG TABLET 20 MG PO (09:33)
[2024-01-28] MEDS: diphenhydrAMINE 25 MG CAPSULE 50 MG PO (09:33)
[2024-01-28] MEDS: BORTEZOMIB SUBQ 2.5 mg/ml 2.2 MG SUBCUT (10:29)
--- NOTE | 2024-01-28 12:36 | ONC.NURNOTE ---
Pt here today for Darzalex FasPro and Velcade. Darzalex Fas Pro had vial malfunction during reconstitution in pharmacy and is unusable. Replacement dose ordered and will be delivered tomorrow. Pt had oral premeds. Reviewed with Lianna Sotelo APRN. Proceed with Velcade as ordered. Pt to return tomorrow 01/28 for Darzalex injection. See paper orders for reduced oral Dexamethasone order; plan to repeat same doses of Tylenol and Benadryl.
[2024-01-29 13:56] VITALS: BP 123/69; PULSE 79; RESP 16; TEMP 36.7; O2SAT 97
[2024-01-29] MEDS: dexAMETHasone 4 MG TABLET 8 MG PO (14:08)
[2024-01-29] MEDS: ACETAMINOPHEN 325 MG TABLET 650 MG PO (14:09)
[2024-01-29] MEDS: diphenhydrAMINE 25 MG CAPSULE 50 MG PO (14:09)
[2024-01-29] MEDS: DARATUMUMAB-HYALURONIDASE-FIHJ 15 ML SUBCUT (15:16)
[2024-02-04 09:11] LABS: Basophils Percent Auto 0.3 % (0.0-3.0); Eosinophils Percent Auto 0.3 % (0.0-7.0); Hematocrit 38.7 % (33.0-51.0); Hemoglobin* 12.6 gm/dL (12.0-16.0); Immature Granulocytes Pct Auto 0.3 %; Lymphocytes Percent Auto 13.2 % (20-44); Mean Corpuscular HGB Conc 33 gm/dL (32-36); Mean Corpuscular Hemoglobin 33 pg (26-34); Mean Corpuscular Volume 102 fL (80-100); Monocytes Percent Auto 12.9 % (0.0-11.0); Platelet Count* 152 K/uL (140-440); RDW Coefficient of Variation % 13.1 % (11.5-15.5); White Blood Count* 3.41 K/uL (4.50-11.00)
[2024-02-04 09:21] LABS: Albumin* 4.2 g/dL (3.3-5.0); Chloride* 109 mmol/L (96-114); Potassium* 3.5 mmol/L (3.6-5.1); Sodium* 138 mmol/L (135-149)
[2024-02-04 09:22] LABS: Slide Review Reflex No
[2024-02-04 09:23] LABS: Anion Gap 5 mEq/L (7-15); Bilirubin Total* 1.2 mg/dL (0.1-1.5); Carbon Dioxide* 24 mmol/L (20-32); Creatinine* 0.7 mg/dL (0.5-1.5); Est. Creatinine Clearance* 45.09; Estimated Glomerular Filt Rate 88 ml/min
[2024-02-04 09:24] LABS: Alanine Aminotransferase* 32 U/L (4-35); Alkaline Phosphatase* 62 U/L (40-150); Aspartate Amino Transferase* 37 U/L (12-35); Blood Urea Nitrogen* 17 mg/dL (7-30); Calcium* 10.4 mg/dL (8.4-10.6); Glucose* 97 mg/dL (60-115); Total Protein* 6.4 g/dL (6.0-8.3)
[2024-02-04] MEDS: BORTEZOMIB SUBQ 2.5 mg/ml 2.2 MG SUBCUT (10:33)
[2024-02-11 09:05] LABS: Basophils Percent Auto 0.4 % (0.0-3.0); Eosinophils Percent Auto 1.1 % (0.0-7.0); Hemoglobin* 12.7 gm/dL (12.0-16.0); Immature Granulocytes Pct Auto 0.4 %; Lymphocytes Percent Auto 19.2 % (20-44); Mean Corpuscular HGB Conc 33 gm/dL (32-36); Mean Corpuscular Hemoglobin 33 pg (26-34); Mean Corpuscular Volume 101 fL (80-100); Monocytes Percent Auto 15.5 % (0.0-11.0); Neutrophils Percent Auto 63.4 % (42.0-72.0); Platelet Count* 149 K/uL (140-440); Red Blood Count 3.86 m/uL (4.00-5.20); White Blood Count* 2.65 K/uL (4.50-11.00)
[2024-02-11 09:07] LABS: Slide Review Reflex No
[2024-02-11 09:09] VITALS: BP 108/72; PULSE 69; RESP 16; TEMP 36; O2SAT 97
[2024-02-11 09:20] LABS: Chloride* 110 mmol/L (96-114); Potassium* 3.7 mmol/L (3.6-5.1); Sodium* 139 mmol/L (135-149)
[2024-02-11 09:22] LABS: Creatinine* 0.6 mg/dL (0.5-1.5); Est. Creatinine Clearance* 45.09; Estimated Glomerular Filt Rate 92 ml/min
[2024-02-11 09:23] LABS: Alanine Aminotransferase* 34 U/L (4-35); Alkaline Phosphatase* 58 U/L (40-150); Anion Gap 2 mEq/L (7-15); Aspartate Amino Transferase* 44 U/L (12-35); Bilirubin Total* 1.1 mg/dL (0.1-1.5); Blood Urea Nitrogen* 15 mg/dL (7-30); Calcium* 10.2 mg/dL (8.4-10.6); Carbon Dioxide* 27 mmol/L (20-32); Glucose* 111 mg/dL (60-115); Total Protein* 6.1 g/dL (6.0-8.3)
[2024-02-11] MEDS: dexAMETHasone 4 MG TABLET 20 MG PO (10:06)
[2024-02-11] MEDS: ACETAMINOPHEN 325 MG TABLET 650 MG PO (10:07)
[2024-02-11] MEDS: diphenhydrAMINE 25 MG CAPSULE 50 MG PO (10:07)
[2024-02-11] MEDS: BORTEZOMIB SUBQ 2.5 mg/ml 2.2 MG SUBCUT (11:20)
[2024-02-11] MEDS: DARATUMUMAB-HYALURONIDASE-FIHJ 15 ML SUBCUT (11:20)
[2024-02-18 08:57] VITALS: BP 121/73; PULSE 73; RESP 16; TEMP 36.6; O2SAT 97
[2024-02-18] MEDS: BORTEZOMIB SUBQ 2.5 mg/ml 2.2 MG SUBCUT (09:33)
[2024-02-25 09:04] LABS: Basophils Percent Auto 0.7 % (0.0-3.0); Eosinophils Percent Auto 1.3 % (0.0-7.0); Hematocrit 39.3 % (33.0-51.0); Hemoglobin* 12.8 gm/dL (12.0-16.0); Lymphocytes Percent Auto 18.6 % (20-44); Mean Corpuscular HGB Conc 33 gm/dL (32-36); Mean Corpuscular Hemoglobin 33 pg (26-34); Mean Corpuscular Volume 101 fL (80-100); Monocytes Percent Auto 17.3 % (0.0-11.0); Neutrophils Percent Auto 62.1 % (42.0-72.0); Platelet Count* 145 K/uL (140-440); RDW Coefficient of Variation % 12.9 % (11.5-15.5); Red Blood Count 3.88 m/uL (4.00-5.20); White Blood Count* 3.01 K/uL (4.50-11.00)
[2024-02-25 09:10] LABS: Slide Review Reflex No
[2024-02-25 09:15] LABS: Chloride* 109 mmol/L (96-114); Potassium* 3.5 mmol/L (3.6-5.1); Sodium* 140 mmol/L (135-149)
[2024-02-25 09:18] LABS: Alanine Aminotransferase* 43 U/L (4-35); Alkaline Phosphatase* 65 U/L (40-150); Anion Gap 3 mEq/L (7-15); Aspartate Amino Transferase* 59 U/L (12-35); Bilirubin Total* 1.1 mg/dL (0.1-1.5); Blood Urea Nitrogen* 17 mg/dL (7-30); Carbon Dioxide* 28 mmol/L (20-32); Creatinine* 0.7 mg/dL (0.5-1.5); Est. Creatinine Clearance* 45.09; Estimated Glomerular Filt Rate 88 ml/min; Glucose* 100 mg/dL (60-115); Total Protein* 6.2 g/dL (6.0-8.3)
[2024-02-25] MEDS: dexAMETHasone 4 MG TABLET 20 MG PO (09:35)
[2024-02-25] MEDS: diphenhydrAMINE 25 MG CAPSULE 50 MG PO (09:36)
[2024-02-25] MEDS: ACETAMINOPHEN 325 MG TABLET 650 MG PO (09:37)
[2024-02-25] MEDS: BORTEZOMIB SUBQ 2.5 mg/ml 2.2 MG SUBCUT (10:35)
[2024-02-25] MEDS: DARATUMUMAB-HYALURONIDASE-FIHJ 15 ML SUBCUT (10:36)
--- NOTE | 2024-02-26 10:18 | ONC.NURNOTE ---
Nataliia-nurse from [facility] called requesting refill of dexamethasone. Pt due today for dexamethasone day after darzalex. Discussed with Lianna, she will order and clarified pt only receives steroids on weeks of Darzalex. Metal Stud Framer called to update Nataliia galvan at [facility].
[2024-03-03 08:48] LABS: Basophils Percent Auto 0.8 % (0.0-3.0); Eosinophils Percent Auto 1.2 % (0.0-7.0); Hematocrit 40.1 % (33.0-51.0); Lymphocytes Percent Auto 21.1 % (20-44); Mean Corpuscular HGB Conc 32 gm/dL (32-36); Mean Corpuscular Hemoglobin 34 pg (26-34); Mean Corpuscular Volume 104 fL (80-100); Monocytes Percent Auto 18.3 % (0.0-11.0); Neutrophils Percent Auto 58.6 % (42.0-72.0); Platelet Count* 140 K/uL (140-440); RDW Coefficient of Variation % 13.1 % (11.5-15.5); Red Blood Count 3.86 m/uL (4.00-5.20); White Blood Count* 2.46 K/uL (4.50-11.00)
[2024-03-03 08:49] LABS: Slide Review Reflex No
[2024-03-03 08:55] VITALS: BP 108/76; PULSE 72; RESP 16; TEMP 36.3; O2SAT 98
[2024-03-03 09:02] LABS: Albumin* 4.1 g/dL (3.3-5.0)
[2024-03-03 09:03] LABS: Chloride* 111 mmol/L (96-114); Potassium* 3.8 mmol/L (3.6-5.1); Sodium* 141 mmol/L (135-149)
[2024-03-03 09:05] LABS: Bilirubin Total* 1.2 mg/dL (0.1-1.5); Creatinine* 0.7 mg/dL (0.5-1.5); Est. Creatinine Clearance* 45.09; Estimated Glomerular Filt Rate 88 ml/min
[2024-03-03 09:06] LABS: Alanine Aminotransferase* 44 U/L (4-35); Alkaline Phosphatase* 61 U/L (40-150); Anion Gap 3 mEq/L (7-15); Aspartate Amino Transferase* 49 U/L (12-35); Blood Urea Nitrogen* 19 mg/dL (7-30); Carbon Dioxide* 27 mmol/L (20-32); Glucose* 83 mg/dL (60-115); Total Protein* 6.3 g/dL (6.0-8.3)
[2024-03-03] MEDS: BORTEZOMIB SUBQ 2.5 mg/ml 2.2 MG SUBCUT (09:59)
[2024-03-10 09:11] LABS: Basophils Percent Auto 0.8 % (0.0-3.0); Eosinophils Percent Auto 1.2 % (0.0-7.0); Hematocrit 40.1 % (33.0-51.0); Lymphocytes Percent Auto 20.3 % (20-44); Mean Corpuscular HGB Conc 32 gm/dL (32-36); Mean Corpuscular Hemoglobin 34 pg (26-34); Mean Corpuscular Volume 104 fL (80-100); Monocytes Percent Auto 15.5 % (0.0-11.0); Neutrophils Percent Auto 62.2 % (42.0-72.0); Platelet Count* 129 K/uL (140-440); Red Blood Count 3.86 m/uL (4.00-5.20); White Blood Count* 2.51 K/uL (4.50-11.00)
[2024-03-10 09:17] LABS: Slide Review Reflex No
[2024-03-10 09:21] VITALS: BP 113/75; PULSE 66; RESP 16; TEMP 36.1; O2SAT 97
[2024-03-10 09:23] LABS: Albumin* 4.1 g/dL (3.3-5.0); Chloride* 109 mmol/L (96-114); Potassium* 3.6 mmol/L (3.6-5.1); Sodium* 141 mmol/L (135-149)
[2024-03-10 09:26] LABS: Alanine Aminotransferase* 38 U/L (4-35); Alkaline Phosphatase* 62 U/L (40-150); Anion Gap 6 mEq/L (7-15); Aspartate Amino Transferase* 43 U/L (12-35); Bilirubin Total* 1.2 mg/dL (0.1-1.5); Blood Urea Nitrogen* 14 mg/dL (7-30); Carbon Dioxide* 26 mmol/L (20-32); Creatinine* 0.7 mg/dL (0.5-1.5); Est. Creatinine Clearance* 45.09; Estimated Glomerular Filt Rate 88 ml/min; Glucose* 125 mg/dL (60-115); Total Protein* 6.2 g/dL (6.0-8.3)
[2024-03-10 09:27] LABS: Calcium* 10.5 mg/dL (8.4-10.6)
[2024-03-10] MEDS: diphenhydrAMINE 25 MG CAPSULE 50 MG PO (10:19)
[2024-03-10] MEDS: dexAMETHasone 4 MG TABLET 20 MG PO (10:19)
[2024-03-10] MEDS: ACETAMINOPHEN 325 MG TABLET 650 MG PO (10:19)
[2024-03-10] MEDS: DARATUMUMAB-HYALURONIDASE-FIHJ 15 ML SUBCUT (11:26)
[2024-03-10] MEDS: BORTEZOMIB SUBQ 2.5 mg/ml 2.2 MG SUBCUT (11:26)
== END 2024-03-15 23:59 | disposition home or self-care (01) ==
LOC: CCIC 09:00
PROVIDERS: Clinical Nurse Specialist; Internal Medicine Hematology & Oncology; PCP Family Medicine; Referring Provider Family Medicine; Visit Provider Internal Medicine Hematology & Oncology
DX: Z51.11 Encounter for antineoplastic chemotherapy (principal); C90.00 Multiple myeloma not having achieved remission; D47.2 Monoclonal gammopathy; M89.9 Disorder of bone, unspecified
CPT/HCPCS: 36415; 80053; 82232; 82310; 82784; 83520; 84155; 84165; 85025; 86334; 86850; 86900; 86901; 96365; 96374; 96376; 96401; 99211; 99213; 99214; 99215; G0463; J9144; A9270; J1100; J2250; J3010; J3489; J7050; J9041

== ENCOUNTER 2024-09-08 09:00 | Outpatient (RCR) | payer MEDICARE, OTHER, SELFPAY ==
[2024-03-17] MEDS: BORTEZOMIB SUBQ 2.5 mg/ml 2.2 MG SUBCUT (09:38)
[2024-03-24 08:54] LABS: Eosinophils Percent Auto 0.9 % (0.0-7.0); Hematocrit 39.4 % (33.0-51.0); Hemoglobin* 12.7 gm/dL (12.0-16.0); Immature Granulocytes Pct Auto 0.5 %; Lymphocytes Percent Auto 18.6 % (20-44); Mean Corpuscular HGB Conc 32 gm/dL (32-36); Mean Corpuscular Hemoglobin 33 pg (26-34); Mean Corpuscular Volume 104 fL (80-100); Monocytes Percent Auto 16.4 % (0.0-11.0); Neutrophils Percent Auto 63.6 % (42.0-72.0); Platelet Count* 132 K/uL (140-440); RDW Coefficient of Variation % 12.9 % (11.5-15.5)
[2024-03-24 08:55] LABS: Slide Review Reflex No
[2024-03-24 09:10] LABS: Albumin* 4.2 g/dL (3.3-5.0); Chloride* 109 mmol/L (96-114)
[2024-03-24 09:11] LABS: Potassium* 3.8 mmol/L (3.6-5.1); Sodium* 141 mmol/L (135-149)
[2024-03-24 09:13] LABS: Alkaline Phosphatase* 65 U/L (40-150); Anion Gap 4 mEq/L (7-15); Aspartate Amino Transferase* 55 U/L (12-35); Bilirubin Total* 1.1 mg/dL (0.1-1.5); Blood Urea Nitrogen* 15 mg/dL (7-30); Carbon Dioxide* 28 mmol/L (20-32); Creatinine* 0.6 mg/dL (0.5-1.5); Estimated Glomerular Filt Rate 92 ml/min; Total Protein* 6.4 g/dL (6.0-8.3)
[2024-03-24 09:14] LABS: Alanine Aminotransferase* 43 U/L (4-35); Calcium* 10.3 mg/dL (8.4-10.6); Glucose* 85 mg/dL (60-115)
[2024-03-24 09:37] VITALS: BP 123/72; PULSE 66; RESP 16; TEMP 36.2; O2SAT 98
[2024-03-24] MEDS: ACETAMINOPHEN 325 MG TABLET 650 MG PO (09:45)
[2024-03-24] MEDS: diphenhydrAMINE 25 MG CAPSULE 50 MG PO (09:45)
[2024-03-24] MEDS: dexAMETHasone 4 MG TABLET 20 MG PO (09:46)
[2024-03-24] MEDS: BORTEZOMIB SUBQ 2.5 mg/ml 2.2 MG SUBCUT (10:56)
[2024-03-24] MEDS: DARATUMUMAB-HYALURONIDASE-FIHJ 15 ML SUBCUT (10:56)
[2024-03-31 09:58] LABS: Basophils Percent Auto 0.4 % (0.0-3.0); Eosinophils Percent Auto 1.2 % (0.0-7.0); Hematocrit 39.1 % (33.0-51.0); Hemoglobin* 12.5 gm/dL (12.0-16.0); Lymphocytes Percent Auto 18.7 % (20-44); Mean Corpuscular HGB Conc 32 gm/dL (32-36); Mean Corpuscular Hemoglobin 33 pg (26-34); Mean Corpuscular Volume 104 fL (80-100); Monocytes Percent Auto 19.5 % (0.0-11.0); Neutrophils Percent Auto 60.2 % (42.0-72.0); Platelet Count* 138 K/uL (140-440); RDW Coefficient of Variation % 12.8 % (11.5-15.5); Red Blood Count 3.76 m/uL (4.00-5.20); White Blood Count* 2.46 K/uL (4.50-11.00)
[2024-03-31 10:04] LABS: Slide Review Reflex No
[2024-03-31 10:10] VITALS: BP 126/82; PULSE 79; RESP 16; TEMP 35.8; O2SAT 92
[2024-03-31 10:13] LABS: Albumin* 3.9 g/dL (3.3-5.0); Chloride* 110 mmol/L (96-114); Potassium* 3.9 mmol/L (3.6-5.1); Sodium* 140 mmol/L (135-149)
[2024-03-31 10:15] LABS: Bilirubin Total* 1.1 mg/dL (0.1-1.5); Creatinine* 0.7 mg/dL (0.5-1.5); Estimated Glomerular Filt Rate 88 ml/min
[2024-03-31 10:16] LABS: Alanine Aminotransferase* 30 U/L (4-35); Alkaline Phosphatase* 60 U/L (40-150); Anion Gap 1 mEq/L (7-15); Aspartate Amino Transferase* 39 U/L (12-35); Blood Urea Nitrogen* 18 mg/dL (7-30); Calcium* 10.2 mg/dL (8.4-10.6); Carbon Dioxide* 29 mmol/L (20-32); Glucose* 96 mg/dL (60-115)
[2024-03-31] MEDS: ZOLEDRONIC ACID 4 MG in 0.9 % SODIUM CHLORIDE 100 ml 100 ML 420 MG IVPB (11:22)
[2024-03-31] MEDS: BORTEZOMIB SUBQ 2.5 mg/ml 2.2 MG SUBCUT (11:40)
[2024-04-07 09:59] LABS: Basophils Percent Auto 0.4 % (0.0-3.0); Eosinophils Percent Auto 1.1 % (0.0-7.0); Hematocrit 39.2 % (33.0-51.0); Hemoglobin* 12.7 gm/dL (12.0-16.0); Lymphocytes Percent Auto 16.9 % (20-44); Mean Corpuscular HGB Conc 32 gm/dL (32-36); Mean Corpuscular Hemoglobin 33 pg (26-34); Mean Corpuscular Volume 103 fL (80-100); Monocytes Percent Auto 14.1 % (0.0-11.0); Neutrophils Percent Auto 67.5 % (42.0-72.0); Platelet Count* 132 K/uL (140-440); RDW Coefficient of Variation % 12.6 % (11.5-15.5); Red Blood Count 3.82 m/uL (4.00-5.20); White Blood Count* 2.84 K/uL (4.50-11.00)
[2024-04-07 10:05] VITALS: BP 116/65; PULSE 66; RESP 20; TEMP 37; O2SAT 98
[2024-04-07 10:09] LABS: Slide Review Reflex No
[2024-04-07 10:12] LABS: Albumin* 4.1 g/dL (3.3-5.0); Chloride* 110 mmol/L (96-114); Sodium* 141 mmol/L (135-149)
[2024-04-07 10:15] LABS: Alanine Aminotransferase* 28 U/L (4-35); Alkaline Phosphatase* 61 U/L (40-150); Anion Gap 4 mEq/L (7-15); Aspartate Amino Transferase* 39 U/L (12-35); Bilirubin Total* 0.9 mg/dL (0.1-1.5); Blood Urea Nitrogen* 13 mg/dL (7-30); Carbon Dioxide* 27 mmol/L (20-32); Creatinine* 0.7 mg/dL (0.5-1.5); Est. Creatinine Clearance* 45.09; Estimated Glomerular Filt Rate 88 ml/min; Glucose* 99 mg/dL (60-115); Total Protein* 6.4 g/dL (6.0-8.3)
[2024-04-07 10:16] LABS: Calcium* 10.8 mg/dL (8.4-10.6)
[2024-04-07] MEDS: diphenhydrAMINE 25 MG CAPSULE 50 MG PO (10:56)
[2024-04-07] MEDS: ACETAMINOPHEN 325 MG TABLET 650 MG PO (10:56)
[2024-04-07] MEDS: dexAMETHasone 4 MG TABLET 20 MG PO (10:57)
[2024-04-07] MEDS: DARATUMUMAB-HYALURONIDASE-FIHJ 15 ML SUBCUT (11:51)
[2024-04-07] MEDS: BORTEZOMIB SUBQ 2.5 mg/ml 2.2 MG SUBCUT (11:51)
[2024-04-14 09:45] VITALS: BP 112/67; PULSE 68; RESP 16; TEMP 36.4; O2SAT 98
[2024-04-14] MEDS: BORTEZOMIB SUBQ 2.5 mg/ml 2.2 MG SUBCUT (10:39)
[2024-04-21 08:42] LABS: Basophils Percent Auto 0.4 % (0.0-3.0); Eosinophils Percent Auto 1.1 % (0.0-7.0); Hematocrit 38.9 % (33.0-51.0); Hemoglobin* 12.9 gm/dL (12.0-16.0); Lymphocytes Percent Auto 18.4 % (20-44); Mean Corpuscular HGB Conc 33 gm/dL (32-36); Mean Corpuscular Hemoglobin 34 pg (26-34); Mean Corpuscular Volume 103 fL (80-100); Monocytes Percent Auto 19.2 % (0.0-11.0); Neutrophils Percent Auto 60.9 % (42.0-72.0); Platelet Count* 134 K/uL (140-440); RDW Coefficient of Variation % 12.7 % (11.5-15.5); Red Blood Count 3.78 m/uL (4.00-5.20); White Blood Count* 2.61 K/uL (4.50-11.00)
[2024-04-21 08:52] VITALS: BP 114/69; PULSE 70; RESP 16; TEMP 36; O2SAT 99
[2024-04-21 08:54] LABS: Slide Review Reflex No
[2024-04-21 08:59] LABS: Albumin* 4.2 g/dL (3.3-5.0); Chloride* 109 mmol/L (96-114)
[2024-04-21 09:00] LABS: Potassium* 3.8 mmol/L (3.6-5.1); Sodium* 141 mmol/L (135-149)
[2024-04-21 09:02] LABS: Alkaline Phosphatase* 67 U/L (40-150); Anion Gap 4 mEq/L (7-15); Aspartate Amino Transferase* 44 U/L (12-35); Blood Urea Nitrogen* 15 mg/dL (7-30); Carbon Dioxide* 28 mmol/L (20-32); Creatinine* 0.7 mg/dL (0.5-1.5); Est. Creatinine Clearance* 45.09; Estimated Glomerular Filt Rate 88 ml/min; Total Protein* 6.3 g/dL (6.0-8.3)
[2024-04-21 09:03] LABS: Alanine Aminotransferase* 38 U/L (4-35); Calcium* 10.3 mg/dL (8.4-10.6); Glucose* 92 mg/dL (60-115)
[2024-04-21] MEDS: dexAMETHasone 4 MG TABLET 20 MG PO (09:22)
[2024-04-21] MEDS: ACETAMINOPHEN 325 MG TABLET 650 MG PO (09:23)
[2024-04-21] MEDS: diphenhydrAMINE 25 MG CAPSULE 50 MG PO (09:24)
[2024-04-21] MEDS: BORTEZOMIB SUBQ 2.5 mg/ml 2.2 MG SUBCUT (10:31)
[2024-04-21] MEDS: DARATUMUMAB-HYALURONIDASE-FIHJ 15 ML SUBCUT (10:31)
--- NOTE | 2024-04-21 12:40 | ONC.NURNOTE ---
Pt here for darzalex and velcade. When asked if pt has any concerns she stated that last night I felt something on her left breast, but it isn't there now. Pt did have a mammogram at [facility] last May 2023. Pt has an appt with Dr. Pandya for her myeloma in 2 weeks. Explained to pt if she feels something abnormal again she can go to her primary care or have Dr. Pandya look at it as well. Pt verbalized understanding of plan of care.
[2024-04-28 09:49] VITALS: BP 115/73; PULSE 71; RESP 16; TEMP 36.4; O2SAT 97
[2024-04-28 09:54] LABS: Basophils Percent Auto 0.4 % (0.0-3.0); Eosinophils Percent Auto 1.3 % (0.0-7.0); Hematocrit 39.4 % (33.0-51.0); Hemoglobin* 12.9 gm/dL (12.0-16.0); Lymphocytes Percent Auto 22.7 % (20-44); Mean Corpuscular HGB Conc 33 gm/dL (32-36); Mean Corpuscular Hemoglobin 34 pg (26-34); Mean Corpuscular Volume 103 fL (80-100); Monocytes Percent Auto 20.5 % (0.0-11.0); Neutrophils Percent Auto 55.1 % (42.0-72.0); Platelet Count* 137 K/uL (140-440); RDW Coefficient of Variation % 12.7 % (11.5-15.5); Red Blood Count 3.83 m/uL (4.00-5.20); White Blood Count* 2.29 K/uL (4.50-11.00)
[2024-04-28 09:55] LABS: Slide Review Reflex No
[2024-04-28 10:13] LABS: Albumin* 4.2 g/dL (3.3-5.0); Chloride* 109 mmol/L (96-114); Sodium* 141 mmol/L (135-149)
[2024-04-28 10:14] LABS: Potassium* 3.8 mmol/L (3.6-5.1)
[2024-04-28 10:16] LABS: Alanine Aminotransferase* 34 U/L (4-35); Alkaline Phosphatase* 62 U/L (40-150); Anion Gap 4 mEq/L (7-15); Aspartate Amino Transferase* 40 U/L (12-35); Bilirubin Total* 1.2 mg/dL (0.1-1.5); Blood Urea Nitrogen* 18 mg/dL (7-30); Carbon Dioxide* 28 mmol/L (20-32); Creatinine* 0.8 mg/dL (0.5-1.5); Est. Creatinine Clearance* 45.09; Estimated Glomerular Filt Rate 75 ml/min; Glucose* 83 mg/dL (60-115); Total Protein* 6.3 g/dL (6.0-8.3)
[2024-04-28 10:17] LABS: Calcium* 10.5 mg/dL (8.4-10.6)
[2024-04-28] MEDS: BORTEZOMIB SUBQ 2.5 mg/ml 2.2 MG SUBCUT (11:08)
[2024-05-01 11:13] LABS: Albumin 3.91 g/dL (3.75-5.01); Alpha 1 Globulin 0.23 g/dL (0.19-0.46); Alpha 2 Globulin 0.54 g/dL (0.48-1.05); Immunofixation IFE Done; Immunoglobulin A 12 mg/dL (68-408); Immunoglobulin G 549 mg/dL (768-1632); Immunoglobulin M <10 mg/dL (35-263); Kappa Qnt Free Light Chains 5.15 mg/L (3.30-19.40); Kappa/Lambda Light Chain Ratio 0.73 (0.26-1.65); Lambda Qnt Free Light Chains 7.01 mg/L (5.71-26.30); Monoclonal Protein 0.38 g/dL (<=0.00); Total Protein, Serum 5.9 g/dL (6.3-8.2)
[2024-05-05 08:24] LABS: Basophils Percent Auto 0.4 % (0.0-3.0); Eosinophils Percent Auto 0.4 % (0.0-7.0); Hematocrit 39.1 % (33.0-51.0); Hemoglobin* 12.8 gm/dL (12.0-16.0); Lymphocytes Percent Auto 15.2 % (20-44); Mean Corpuscular HGB Conc 33 gm/dL (32-36); Mean Corpuscular Hemoglobin 34 pg (26-34); Mean Corpuscular Volume 102 fL (80-100); Monocytes Percent Auto 14.4 % (0.0-11.0); Neutrophils Percent Auto 69.6 % (42.0-72.0); Platelet Count* 139 K/uL (140-440); RDW Coefficient of Variation % 12.8 % (11.5-15.5); Red Blood Count 3.82 m/uL (4.00-5.20); White Blood Count* 2.63 K/uL (4.50-11.00)
[2024-05-05 08:33] LABS: Slide Review Reflex No
[2024-05-05 08:40] LABS: Albumin* 4.4 g/dL (3.3-5.0); Chloride* 108 mmol/L (96-114); Sodium* 141 mmol/L (135-149)
[2024-05-05 08:41] LABS: Potassium* 3.7 mmol/L (3.6-5.1)
[2024-05-05 08:43] LABS: Alkaline Phosphatase* 67 U/L (40-150); Anion Gap 7 mEq/L (7-15); Aspartate Amino Transferase* 50 U/L (12-35); Bilirubin Total* 1.1 mg/dL (0.1-1.5); Blood Urea Nitrogen* 15 mg/dL (7-30); Carbon Dioxide* 26 mmol/L (20-32); Creatinine* 0.7 mg/dL (0.5-1.5); Est. Creatinine Clearance* 45.09; Estimated Glomerular Filt Rate 88 ml/min; Glucose* 104 mg/dL (60-115); Total Protein* 6.7 g/dL (6.0-8.3)
[2024-05-05 08:44] LABS: Alanine Aminotransferase* 41 U/L (4-35); Calcium* 10.5 mg/dL (8.4-10.6)
[2024-05-05] MEDS: diphenhydrAMINE 25 MG CAPSULE 50 MG PO (09:53)
[2024-05-05] MEDS: ACETAMINOPHEN 325 MG TABLET 650 MG PO (09:53)
[2024-05-05] MEDS: dexAMETHasone 4 MG TABLET 20 MG PO (09:54)
[2024-05-05] MEDS: BORTEZOMIB SUBQ 2.5 mg/ml 2.2 MG SUBCUT (11:22)
[2024-05-05] MEDS: DARATUMUMAB-HYALURONIDASE-FIHJ 15 ML SUBCUT (11:22)
[2024-05-12 09:23] VITALS: BP 104/67; PULSE 69; RESP 16; TEMP 36.4; O2SAT 98
[2024-05-12] MEDS: BORTEZOMIB SUBQ 2.5 mg/ml 2.2 MG SUBCUT (09:35)
[2024-05-19 08:39] VITALS: BP 114/65; PULSE 76; RESP 16; TEMP 36.6; O2SAT 97
[2024-05-19] MEDS: BORTEZOMIB SUBQ 2.5 mg/ml 2.2 MG SUBCUT (09:29)
[2024-05-26 08:48] VITALS: BP 101/70; PULSE 71; RESP 18; TEMP 36.6; O2SAT 98
[2024-05-26] MEDS: BORTEZOMIB SUBQ 2.5 mg/ml 2.2 MG SUBCUT (09:26)
[2024-06-02 08:50] LABS: Basophils Percent Auto 0.9 % (0.0-3.0); Eosinophils Percent Auto 0.9 % (0.0-7.0); Hematocrit 39.5 % (33.0-51.0); Hemoglobin* 12.7 gm/dL (12.0-16.0); Lymphocytes Percent Auto 20.9 % (20-44); Mean Corpuscular HGB Conc 32 gm/dL (32-36); Mean Corpuscular Hemoglobin 33 pg (26-34); Mean Corpuscular Volume 103 fL (80-100); Monocytes Percent Auto 15.8 % (0.0-11.0); Neutrophils Percent Auto 61.5 % (42.0-72.0); Platelet Count* 146 K/uL (140-440); RDW Coefficient of Variation % 12.5 % (11.5-15.5); Red Blood Count 3.82 m/uL (4.00-5.20); White Blood Count* 2.34 K/uL (4.50-11.00)
[2024-06-02 08:52] VITALS: BP 108/69; PULSE 70; RESP 16; TEMP 35.8; O2SAT 99
[2024-06-02 08:59] LABS: Slide Review Reflex No
[2024-06-02 09:03] LABS: Albumin* 4.2 g/dL (3.3-5.0); Chloride* 106 mmol/L (96-114)
[2024-06-02 09:04] LABS: Potassium* 3.4 mmol/L (3.6-5.1); Sodium* 139 mmol/L (135-149)
[2024-06-02 09:06] LABS: Alanine Aminotransferase* 31 U/L (4-35); Alkaline Phosphatase* 63 U/L (40-150); Anion Gap 6 mEq/L (7-15); Aspartate Amino Transferase* 39 U/L (12-35); Bilirubin Total* 0.9 mg/dL (0.1-1.5); Blood Urea Nitrogen* 16 mg/dL (7-30); Carbon Dioxide* 27 mmol/L (20-32); Creatinine* 0.7 mg/dL (0.5-1.5); Est. Creatinine Clearance* 45.09; Estimated Glomerular Filt Rate 88 ml/min; Glucose* 121 mg/dL (60-115); Total Protein* 6.4 g/dL (6.0-8.3)
[2024-06-02 09:07] LABS: Calcium* 10.4 mg/dL (8.4-10.6)
[2024-06-02] MEDS: ACETAMINOPHEN 325 MG TABLET 650 MG PO (09:52)
[2024-06-02] MEDS: diphenhydrAMINE 25 MG CAPSULE 50 MG PO (09:53)
[2024-06-02] MEDS: dexAMETHasone 4 MG TABLET 20 MG PO (09:54)
[2024-06-02] MEDS: BORTEZOMIB SUBQ 2.5 mg/ml 2.2 MG SUBCUT (11:07)
[2024-06-02] MEDS: DARATUMUMAB-HYALURONIDASE-FIHJ 15 ML SUBCUT (11:08)
[2024-06-09 08:58] VITALS: BP 124/80; PULSE 66; RESP 16; TEMP 36.9; O2SAT 97
[2024-06-09] MEDS: BORTEZOMIB SUBQ 2.5 mg/ml 2.2 MG SUBCUT (09:57)
[2024-06-16 09:04] VITALS: BP 107/68; PULSE 73; RESP 16; TEMP 36.6; O2SAT 98
[2024-06-16] MEDS: BORTEZOMIB SUBQ 2.5 mg/ml 2.2 MG SUBCUT (10:08)
[2024-06-23 09:08] VITALS: BP 103/67; PULSE 72; RESP 16; TEMP 36; O2SAT 96
[2024-06-23] MEDS: BORTEZOMIB SUBQ 2.5 mg/ml 2.2 MG SUBCUT (09:53)
[2024-06-26 09:17] LABS: Albumin 3.95 g/dL (3.75-5.01); Alpha 1 Globulin 0.23 g/dL (0.19-0.46); Alpha 2 Globulin 0.53 g/dL (0.48-1.05); Immunofixation IFE Done; Immunoglobulin A 11 mg/dL (68-408); Immunoglobulin G 577 mg/dL (768-1632); Immunoglobulin M <10 mg/dL (35-263); Kappa Qnt Free Light Chains 4.82 mg/L (3.30-19.40); Kappa/Lambda Light Chain Ratio 0.51 (0.26-1.65); Lambda Qnt Free Light Chains 9.46 mg/L (5.71-26.30); Monoclonal Protein 0.38 g/dL (<=0.00); Total Protein, Serum 5.9 g/dL (6.3-8.2)
[2024-06-30 09:30] LABS: Basophils Percent Auto 0.4 % (0.0-3.0); Eosinophils Percent Auto 1.2 % (0.0-7.0); Hematocrit 38.5 % (33.0-51.0); Hemoglobin* 12.5 gm/dL (12.0-16.0); Lymphocytes Percent Auto 18.9 % (20-44); Mean Corpuscular HGB Conc 33 gm/dL (32-36); Mean Corpuscular Hemoglobin 33 pg (26-34); Mean Corpuscular Volume 103 fL (80-100); Monocytes Percent Auto 16.9 % (0.0-11.0); Neutrophils Percent Auto 62.6 % (42.0-72.0); Platelet Count* 153 K/uL (140-440); Red Blood Count 3.75 m/uL (4.00-5.20); White Blood Count* 2.43 K/uL (4.50-11.00)
[2024-06-30 09:40] LABS: Albumin* 4.2 g/dL (3.3-5.0); Chloride* 105 mmol/L (96-114)
[2024-06-30 09:41] LABS: Potassium* 3.6 mmol/L (3.6-5.1); Sodium* 139 mmol/L (135-149)
[2024-06-30 09:43] LABS: Anion Gap 6 mEq/L (7-15); Carbon Dioxide* 28 mmol/L (20-32); Creatinine* 0.6 mg/dL (0.5-1.5); Est. Creatinine Clearance* 45.09; Estimated Glomerular Filt Rate 92 ml/min
[2024-06-30 09:44] LABS: Alanine Aminotransferase* 49 U/L (4-35); Alkaline Phosphatase* 63 U/L (40-150); Aspartate Amino Transferase* 56 U/L (12-35); Blood Urea Nitrogen* 14 mg/dL (7-30); Calcium* 10.6 mg/dL (8.4-10.6); Glucose* 96 mg/dL (60-115); Total Protein* 6.4 g/dL (6.0-8.3)
[2024-06-30 09:45] LABS: Slide Review Reflex No
[2024-06-30] MEDS: ACETAMINOPHEN 325 MG TABLET 650 MG PO (10:36)
[2024-06-30] MEDS: dexAMETHasone 4 MG TABLET 20 MG PO (10:37)
[2024-06-30] MEDS: diphenhydrAMINE 25 MG CAPSULE 50 MG PO (10:38)
[2024-06-30] MEDS: ZOLEDRONIC ACID 4 MG in 0.9 % SODIUM CHLORIDE 100 ml 100 ML 420 MG IVPB (11:17)
[2024-06-30] MEDS: DARATUMUMAB-HYALURONIDASE-FIHJ 15 ML SUBCUT (11:44)
[2024-06-30] MEDS: BORTEZOMIB SUBQ 2.5 mg/ml 2.2 MG SUBCUT (11:44)
[2024-07-07 08:48] VITALS: BP 114/70; PULSE 69; RESP 16; TEMP 35.9; O2SAT 99
[2024-07-07] MEDS: BORTEZOMIB SUBQ 2.5 mg/ml 2.2 MG SUBCUT (09:55)
[2024-07-14 08:45] VITALS: BP 119/78; PULSE 77; RESP 16; TEMP 35.5; O2SAT 99
[2024-07-14] MEDS: BORTEZOMIB SUBQ 2.5 mg/ml 2.2 MG SUBCUT (09:26)
[2024-07-21 09:02] VITALS: BP 102/69; PULSE 74; RESP 16; TEMP 35.9; O2SAT 97
[2024-07-21 09:05] LABS: Basophils Percent Auto 0.5 % (0.0-3.0); Eosinophils Percent Auto 1.8 % (0.0-7.0); Hematocrit 38.7 % (33.0-51.0); Hemoglobin* 12.6 gm/dL (12.0-16.0); Lymphocytes Percent Auto 22.9 % (20-44); Mean Corpuscular HGB Conc 33 gm/dL (32-36); Mean Corpuscular Hemoglobin 33 pg (26-34); Mean Corpuscular Volume 102 fL (80-100); Monocytes Percent Auto 19.7 % (0.0-11.0); Neutrophils Percent Auto 55.1 % (42.0-72.0); Platelet Count* 154 K/uL (140-440); RDW Coefficient of Variation % 12.8 % (11.5-15.5); Red Blood Count 3.78 m/uL (4.00-5.20); White Blood Count* 2.18 K/uL (4.50-11.00)
[2024-07-21 09:12] LABS: Chloride* 109 mmol/L (96-114)
[2024-07-21 09:13] LABS: Potassium* 3.6 mmol/L (3.6-5.1); Sodium* 140 mmol/L (135-149)
[2024-07-21 09:16] LABS: Alanine Aminotransferase* 41 U/L (4-35); Alkaline Phosphatase* 68 U/L (40-150); Anion Gap 4 mEq/L (7-15); Aspartate Amino Transferase* 55 U/L (12-35); Bilirubin Total* 0.9 mg/dL (0.1-1.5); Blood Urea Nitrogen* 20 mg/dL (7-30); Calcium* 10.3 mg/dL (8.4-10.6); Carbon Dioxide* 27 mmol/L (20-32); Creatinine* 0.7 mg/dL (0.5-1.5); Est. Creatinine Clearance* 44.36; Estimated Glomerular Filt Rate 88 ml/min; Glucose* 78 mg/dL (60-115); Total Protein* 6.2 g/dL (6.0-8.3)
[2024-07-21 09:17] LABS: Slide Review Reflex No
[2024-07-21] MEDS: BORTEZOMIB SUBQ 2.5 mg/ml 2.2 MG SUBCUT (09:45)
[2024-07-28 10:11] VITALS: BP 109/69; PULSE 63; RESP 16; TEMP 35.7; O2SAT 98
[2024-07-28] MEDS: diphenhydrAMINE 25 MG CAPSULE 50 MG PO (10:33)
[2024-07-28] MEDS: ACETAMINOPHEN 325 MG TABLET 650 MG PO (10:33)
[2024-07-28] MEDS: dexAMETHasone 4 MG TABLET 20 MG PO (10:34)
[2024-07-28] MEDS: DARATUMUMAB-HYALURONIDASE-FIHJ 15 ML SUBCUT (11:47)
[2024-07-28] MEDS: BORTEZOMIB SUBQ 2.5 mg/ml 2.2 MG SUBCUT (11:47)
[2024-08-04 09:01] VITALS: BP 107/68; PULSE 69; RESP 16; TEMP 36.1; O2SAT 99
[2024-08-04] MEDS: BORTEZOMIB SUBQ 2.5 mg/ml 2.2 MG SUBCUT (09:39)
[2024-08-12 09:02] VITALS: BP 105/68; PULSE 72; RESP 16; TEMP 36.2; O2SAT 97
[2024-08-12] MEDS: BORTEZOMIB SUBQ 2.5 mg/ml 2.2 MG SUBCUT (09:42)
--- OUTSIDE RECORDS SUMMARY | 2024-08-19 07:02 | XMS_ITS | Continuity of Care Document ---
Author Name NwHIN User [email or web address] Address Unknown Organization Unknown Address Unknown Procedures FILTER APPLIED:Only known Procedures with Onset Date within the last 5 years Procedure Date Procedure Provider Additiona l Information Status THER/PROPH/DIAG IV INF INIT (79588) Completed OFFICE O/P EST MOD 30 MIN (57845) Completed OFFICE O/P EST SF 10 MIN (61273) Completed TX/PRO/DX INJ SAME DRUG SEED LABORATORY TECHNICIAN (62800) Completed OFF/OP EST DECEMBER X REQ PHY/QHP (36071) Completed BLOOD TYPING SEROLOGIC RH(D) (39651) Completed BLOOD TYPING SEROLOGIC ABO (61976) Completed RBC ANTIBODY SCREEN (60402) Completed ANESTH LENS SURGERY (82018) Completed XCAPSL CTRC RMVL INSJ IO LENS PROSTH W/O ECP (62813) Completed ANES PT EXTEME AGE<1 YR >70 (55268) Completed ASSAY OF CALCIUM (84523) Completed ANESTH LENS SURGERY (60833) Completed XCAPSL CTRC RMVL INSJ IO LENS PROSTH W/O ECP (79851) Completed ANES PT EXTEME AGE<1 YR >70 (93618) Completed OFFICE O/P EST HI 40 MIN (70097) Completed OFFICE O/P EST LOW 20 MIN (50075) Completed IMMUNOFIX E-PHORESIS SERUM (77925) Completed COMPLETE CBC W/AUTO DIFF WBC (88847) Completed PROTEIN E-PHORESIS SERUM (61993) Completed IMMUNOASSAY QUANT NOS NONAB (37495) Completed ASSAY IGA/IGD/IGG/IGM EACH (25068) Completed COMPREHEN METABOLIC PANEL (25135) Completed ROUTINE VENIPUNCTURE (92922) Completed ASSAY OF PROTEIN SERUM (87936) Completed THER/PROPH/DIAG INJ IV PUSH (97611) Completed CHEMO ANTI-NEOPL SQ/IM (77074) Completed OFFICE O/P EST HI 40 MIN (51997) Completed IMMUNOFIX E-PHORESIS SERUM (79568) Completed PROTEIN E-PHORESIS SERUM (59072) Completed ASSAY OF PROTEIN SERUM (80837) Completed IMMUNOASSAY QUANT NOS NONAB (85458) Completed ASSAY IGA/IGD/IGG/IGM EACH (46046) Completed ROUTINE VENIPUNCTURE (04086) Completed COMPREHEN METABOLIC PANEL (76065) Completed COMPLETE CBC W/AUTO DIFF WBC (00996) Completed OFFICE O/P EST SF 10 MIN (24677) Completed OFFICE O/P EST MOD 30 MIN (69157) Completed CHEMO ANTI-NEOPL SQ/IM (69822) Completed THER/PROPH/DIAG INJ IV PUSH (82705) Completed Encounters FILTER APPLIED:Only known Encounters with Admission Date within the last 5 years Encounter Location Admission Discharge Billing Code Consultant Yissel cohen Outpatient Gokul Pandya Outpatient Misty Saleh Outpatient Misty Landaench Outpatient Kendra cr
--- OUTSIDE RECORDS SUMMARY | 2024-08-19 07:02 | XMS_ITS | Clinical Summary ---
Author Organization [employer] [facility] Address [place], [place] [address] Care Team Providers Care Network Solutions Architect Name Role Phone Ellie Weaver MD Primary Care Provide r Ezequiel Carlson Unavailable Unavailable [facility] Unavailable Allergies Active Allergy Reactions Criticality Noted Date Comments Terbinafine Hcl Anxiety 06/22/2019 Medications bortezomib (Velcade) 3.5 mg injectionIndicat ions:Multiple myeloma, remission status unspecified (HC) Inject intravenous. Once a week for multiple myeloma 0 2 Active trimethoprim-sul famethoxazole, 160-800 mg, (BACTRIM DS, SEPTRA DS) tabIndications:C hemotherapy-rubi amara neutropenia (HC) TAKE ONE TABLET ON Friday and --tw e a week 24 Tablet 3 2 Active dexAMETHasone (DECADRON) 4 mg tablet Take 1 Tablet (4 mg) by mouth. 5 days per week 0 2 Active calcium carbonate-vitami n D3, 600 mg-400 unit, 600 mg-10 mcg (400 unit) tabletIndication s:Multiple myeloma, remission status unspecified (HC) TAKE 1 TABLET BY MOUTH ONCE DAILY WITH A MEAL. 90 Tablet 3 3 Active ciclopirox solution (LOPROX) 8 % solutionIndicati ons:Onychomycosi s Apply topically to affected area(s) at bedtime. 6.6 mL 11 3 Active aspirin (ECOTRIN) 81 mg enteric coated tabletIndication s:Multiple myeloma, remission status unspecified (HC) Take 1 Tablet (81 mg) by mouth once daily with a meal. 90 Tablet 3 4 Active QUEtiapine (SEROQUEL) 25 mg tabletIndication s:Insomnia, idiopathic,Delus ion (HC) Take 2 Tablets (50 mg) by mouth at bedtime. 180 Tablet 3 4 Active acyclovir (ZOVIRAX) 400 mg tabletIndication s:Multiple myeloma not having achieved remission (HC) TAKE ONE TABLET BY MOUTH TWICE A DAY 60 Tablet 5 4 Active prednisoLONE acetate 1% ophthalmic (ECONOPRED PLUS, PRED FORTE, OMNIPRED) suspension Place 1 Drop into left eye four times daily. 4 Active triamcinolone 0.025% topical (ARISTOCORT) 0.025 % creamIndications :Periorbital dermatitis Apply topically to affected area(s) two times daily. 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 Multiple myeloma 06/23/2020 Hypothyroidism 06/08/2015 Hives 06/08/2015 Peripheral vertigo, unspecified 05/14/2012 Benign neoplasm of colon 03/05/2007 Overview (03/20/2021): Colonoscopy 12/2010 normal repeat in 5 years [...] Other specified disorders of thyroid 03/05/2007 04/14/2008 Overview (03/05/2007): mild elevation of tsh Encounters Date Type Department Care Team Description 06/10/2024 3:15 PM CDT Ancillary Procedure [facility] [address] [place] [address] 06/10/2024 2:30 PM CDT Ancillary Procedure [facility] [address] [place] [address] 06/10/2024 Travel 05/27/2024 Telephone [facility] [address] [facility] [address] Ellie Weaver MD FYI 05/24/2024 Telephone [facility] [address] [facility] [address] Adenike Farley Results 05/20/2024 4:20 PM CDT Ancillary Procedure [facility] [address] [facility] [address] 05/20/2024 Travel from Last 3 Months Immunizations Name Administration Dates Next Due Amb Influenza, Inactivated A IIV4 (Age 65+ Years) Preserv Free 05/12/2020 COVID-19 VACCINE SPIKEVAX (M ODERNA 50MCG/0.5ML) 12YO+ PFS 05/30/2023 COVID-19 vaccine (Pfizer-Bio NTech 30mcg/0.3mL) 12YO+ [...] 0 09/05/2023 Social Connections Answer Date Recorded Do you often feel lonely or isolated from those around you? 0 08/04/2023 Financial Resource Strain Answer Date R ecorded Difficulty of Paying Living Expenses 3 08/04/2023 Difficulty of Paying Living Expenses Not on file 08/04/2023 Food Insecurity Answer Date Recorded Do you worry your food will run out before you are able to buy more? 1 08/04/2023 Transportation Needs Answer Date Record ed Does lack of transportation keep you from medica l appointments? 1 08/04/2023 Does lack of transportation keep you from work, meetings or getting things that you need? 1 08/04/2023 Housing Stability Answer Date Recorded What is your housing situation today? 1 08/04/2023 Comments No Sex and Gender Information Value Date Recorded Sex Assigned at Not on file Legal Sex Female 6:23 AM SQL TECH Gender Identity Not on file Sexual Orientation Not on file Occupation Industry Job Start Date Job End Date Not on file Not on file Not on file Not on file Obstetrics History Para Term AB IAB SAB Ectopic Multiple Livin g Live Births 3 3 3 3 Date Outcome GA Total Labor Labor/2nd/3rd Weight Sex Type Anes PTL Clarice A1 A5 Name Clin Term Term Term Last Filed Vital Signs Vital Sign Reading Time Taken Comments Blood Pressure 107/71 11/07/2023 8:30 AM CDT Pulse 80 11/07/2023 8:30 AM CDT Temperature 36.9 C (98.4 F) 08/04/2020 11:43 AM SQL TECH Respiratory Rate 14 02/04/2020 9:15 AM CDT Oxygen Saturation 97% 11/07/2023 8:30 AM CDT Inhaled Oxygen Concentration - - Weight 63.5 kg (140 lb) 11/07/2023 8:30 AM CDT Height 170.8 cm (5' 7.25) 09/05/2023 11:[address] Body Mass Index 21.76 09/05/2023 11:03 AM SQL TECH Plan of Treatment Health Maintenance Due Date Last Done Comments Hepatitis C screening for ag e 18-79 1963 RSV vaccine for adults or (1 - 1-dose 75+ series) 2020 COVID-19 vaccine series ( season) 2024 05/30/2023, 06/27/2022, 11/17/2021, Additional history exists Influenza for age 65+ 04/18/2024 05/08/2023 , 06/26/2022, 05/22/2021, Additional history exists BMI (ht and wt on same day) for age 18+ 09/05/2024 09/05/2023, 06/27/2022, 06/26/2021, Additional history exists Depression screening for age 12+ 09/05/2024 09/05/2023, 05/08/2023, 05/08/2023, Additional history exists Medicare Wellness for age 65+ 09/05/2024, 06/27/2022, 06/26/2021, Additional history exists Tetanus booster 03/20/2025 03/20/2015, 02/2008 (Completed outside of [facility]), 04/12/2004 Tdap Completed 03/20/2015 DEXA/DXA scan for age 65+ Completed 2016, 05/19/2012, 03/10/2007 Zoster (shingles) series for age 50+ Completed 08/20/2019, 06/04/2019, 06/16/2012 Pneumococcal series for age 50+ Completed 01/01/2022, 06/08/2015, 05/14/2012 Procedures Procedure Name Priority Date/Time Associated Diagnosis Comments US BREAST UNILATERAL RIGHT LIMITED KETAN 06/10/2024 3:05 PM CDT Abnormal mammogram XR MAMMO IFRAH UNI ADDL VIEWS RIGHT KETAN 06/10/2024 2:53 PM CDT Abnormal mammogram XR MAMMO IFRAH BILAT SCREEN Routine 05/20/2024 4:14 PM CDT Visit for screening mammogram XR DXA BONE DENSITY 2 SITES AXIAL Routine 06/17/2017 3:12 PM CDT Asymptomatic postmenopausal state from Last 3 Months or Most Recently Relevant to Health Maintenance Results * US BREAST UNILATERAL RIGHT LIMITED (06/10/2024 3:05 PM CDT) Anatomical Region Laterality Modality BREASTS, Breast Right Right Ultrasound Narrative 06/10/2024 4:20 PM CDT For Patients: As a result of the Century Cures Act, medical imaging exams and procedure reports are released immediately into your electronic medical record. You may view this report before your referring provider. If you have questions, please contact your health care provider. RIGHT BREAST ULTRASOUND, 06/10/2024 PLEASE SEE [id number] FOR DIGITAL RIGHT MAMMOGRAM SAME DAY. us Ellie Weaver MD US Final Result * XR MAMMO IFRAH UNI ADDL VIEWS RIGHT (06/10/2024 2:53 PM CDT) Anatomical Region Laterality Modality BREASTS, Breast Right Mammograph y 06/10/2024 3:30 PM CDT Impressions 06/10/2024 4:19 PM CDT No evidence of malignancy. RECOMMENDATIONS: Routine screening mammography. Results and recommendations discussed with the patient. BI-RADS Category 2: Benign Dictated by: Ezequiel Bethea MD @06/10/2024 3:30:42 PM/hailey PATIENTS: You will also receive a letter with your examination results in an easy to read format. If you have questions about your results, please contact your referring provider. Narrative 06/10/2024 4:19 PM CDT For Patients: As a result of the Cures Act, medical imaging exams and procedure reports are released immediately into your electronic medical record. You may view this report before your referring provider. If you have questions, please contact your health care provider. ADDITIONAL VIEWS RIGHT DIGITAL MAMMOGRAM USING TOMOSYNTHESIS, 06/10/2024 RIGHT BREAST ULTRASOUND, 06/10/2024 CLINICAL HISTORY: RIGHT breast mass/asymmetry. COMPARISON: 05/20/2024. TECHNIQUE: Digital RIGHT mammogram in two projections. Tomosynthesis was used in this interpretation. Real-time ultrasound imaging of RIGHT breast with imaging documentation. BREAST COMPOSITION: There are scattered areas of fibroglandular density. FINDINGS: 3D spot compression CC/RIGHT breast mammogram images submitted. Decreased conspicuity of the previously noted asymmetric density. No architectural distortion. Benign calcifications. Targeted RIGHT breast ultrasound performed in the upper outer quadrant 9-11 o'clock 6 cm from the nipple. No fibrocystic change or solid mass. us Ellie Weaver MD MAMMO Final Result * XR MAMMO IFRAH BILAT SCREEN (05/20/2024 4:14 PM CDT) Anatomical Region Laterality Modality BREASTS, Breast Left, Breast Right Bilateral Mammography 05/20/2024 4:38 PM CDT Addenda Addendum by Ezequiel Bethea MD on 06/09/2024 2:03 PM CDT ADDENDUM ADDENDUM ADDENDUM Corrected BI-RADS Category 0, compliant with MQSA: BI-RADS Category 0: Incomplete: Need additional imaging evaluation CRL:[email or web address] Impressions 05/21/2024 1:49 PM CDT RIGHT breast asymmetry/mass. RECOMMENDATIONS: Additional mammographic views of the RIGHT breast including 3D spot-compression CC/MLO. RIGHT breast ultrasound may also be required. A member of the health care team will contact the patient to schedule the required additional imaging appointment. BI-RADS Category 0: Incomplete: Need Additional Imaging Evaluation and/or Prior Mammograms for Comparison Dictated by: Ezequiel Bethea MD @05/20/2024 4:38:56 PM/hailey PATIENTS: You will also receive a letter with your examination results in an easy to read format. If you have questions about your results, please contact your referring provider. Narrative 05/21/2024 1:49 PM CDT For Patients: As a result of the Cures Act, medical imaging exams and procedure reports are released immediately into your electronic medical record. You may view this report before your referring provider. If you have questions, please contact your health care provider. BILATERAL DIGITAL SCREENING MAMMOGRAM WITH COMPUTER-AIDED DETECTION AND TOMOSYNTHESIS 05/20/2024 CLINICAL HISTORY: Routine screening exam. COMPARISON: 05/22/2023, 05/20/2022, 05/17/2021. TECHNIQUE: Digital mammogram in CC and MLO projections including computer-aided detection (CAD). Tomosynthesis was used in this interpretation. BREAST COMPOSITION: The breasts are heterogeneously dense, which may obscure small masses. FINDINGS: RIGHT Breast: Focal asymmetric density upper outer quadrant 6 cm from the nipple. LEFT Breast: No suspicious findings. Ellie Weaver MD MAMMO Edite d Result - Final * (ABNORMAL) XR DXA BONE DENSITY 2 SITES AXIAL (06/17/2017 3:12 PM CDT) Anatomical Region Laterality Modality Spine, HIPS, HIPL, HIPR Other Narrative 06/27/2017 8:11 AM SQL TECH Please see scanned document for results of this study. Ellie COOPER Final Result from Last 3 Months or Most Recently Relevant to Health Maintenance Insurance [id number] [facility] [place] [id number] MEDICARE PART B HB ONLY [place] ishBowl PB ONLY MEDICARE PPS MEDICA PRIME SOLUTION HB Advance Directives Documents on File Type Date Recorded Patient Engineering Tech Expl anation Healthcare Directive 10/27/2017 3:10 PM HE ALTHCARE DIRECTIVE, [employer], 01/31/2017 Healthcare Directive 01/31/2017 017 * Full Code (Latest Code Status on File) Date Activated Date Inactivated Comments 02/04/2020 6:52 AM 02/04/2020 12:30 PM Care Teams Network Solutions Architect Relationship Specialty Start Date End Date Ellie Weaver MD [address] [place] [address] PCP - General 12/06/05 Ezequiel Carlson Executive Officer Special Warfare Team 05/14/[address] [address] 12/03/22
[2024-08-19 08:56] VITALS: BP 114/72; PULSE 66; RESP 16; TEMP 36.2; O2SAT 98
[2024-08-19 09:15] LABS: Basophils Percent Auto 0.4 % (0.0-3.0); Eosinophils Percent Auto 1.7 % (0.0-7.0); Hematocrit 37.4 % (33.0-51.0); Hemoglobin* 12.1 gm/dL (12.0-16.0); Lymphocytes Percent Auto 19.6 % (20-44); Mean Corpuscular HGB Conc 32 gm/dL (32-36); Mean Corpuscular Hemoglobin 33 pg (26-34); Mean Corpuscular Volume 103 fL (80-100); Monocytes Percent Auto 17.9 % (0.0-11.0); Neutrophils Percent Auto 60.4 % (42.0-72.0); Platelet Count* 141 K/uL (140-440); RDW Coefficient of Variation % 13.1 % (11.5-15.5); Red Blood Count 3.64 m/uL (4.00-5.20); White Blood Count* 2.35 K/uL (4.50-11.00)
[2024-08-19 09:22] LABS: Slide Review Reflex No
[2024-08-19 09:32] LABS: Albumin* 3.8 g/dL (3.3-5.0); Chloride* 108 mmol/L (96-114); Potassium* 3.6 mmol/L (3.6-5.1); Sodium* 139 mmol/L (135-149)
[2024-08-19 09:34] LABS: Creatinine* 0.7 mg/dL (0.5-1.5); Est. Creatinine Clearance* 44.36; Estimated Glomerular Filt Rate 88 ml/min
[2024-08-19 09:35] LABS: Alanine Aminotransferase* 30 U/L (4-35); Alkaline Phosphatase* 59 U/L (40-150); Anion Gap 3 mEq/L (7-15); Aspartate Amino Transferase* 38 U/L (12-35); Bilirubin Total* 0.9 mg/dL (0.1-1.5); Blood Urea Nitrogen* 18 mg/dL (7-30); Carbon Dioxide* 28 mmol/L (20-32); Glucose* 104 mg/dL (60-115); Total Protein* 5.9 g/dL (6.0-8.3)
[2024-08-19 09:36] LABS: Calcium* 10.3 mg/dL (8.4-10.6)
[2024-08-19] MEDS: BORTEZOMIB SUBQ 2.5 mg/ml 2.2 MG SUBCUT (10:16)
[2024-08-25 10:26] VITALS: BP 114/67; PULSE 74; RESP 16; TEMP 36.4; O2SAT 97
[2024-08-25] MEDS: ACETAMINOPHEN 325 MG TABLET 650 MG PO (10:53)
[2024-08-25] MEDS: dexAMETHasone 4 MG TABLET 20 MG PO (10:53)
[2024-08-25] MEDS: diphenhydrAMINE 25 MG CAPSULE 50 MG PO (10:54)
--- NOTE | 2024-08-25 11:55 | ONC.NURNOTE ---
Patient in clinic today for Velcade and Darzalex, Patient had labs drawn last week with start of new cycle of Velcade. Per note ok for patient to have labs monthly. Labs due today for Darzalex. Spoke with Lianna Hinds APRN who gave ok for treatment today with labs from last week. Labs are low but stable. Will adjust Darzalex regimen so all labs will be drawn the same day.
[2024-08-25] MEDS: DARATUMUMAB-HYALURONIDASE-FIHJ 15 ML SUBCUT (12:06)
[2024-08-25] MEDS: BORTEZOMIB SUBQ 2.5 mg/ml 2.2 MG SUBCUT (12:06)
[2024-09-01 09:03] VITALS: BP 108/70; PULSE 75; RESP 16; TEMP 36; O2SAT 95
[2024-09-01] MEDS: BORTEZOMIB SUBQ 2.5 mg/ml 2.2 MG SUBCUT (09:58)
[2024-09-08 08:52] VITALS: BP 114/69; PULSE 70; RESP 16; TEMP 36.4; O2SAT 99
[2024-09-08] MEDS: BORTEZOMIB SUBQ 2.5 mg/ml 2.2 MG SUBCUT (09:21)
== END 2024-09-13 23:59 | disposition home or self-care (01) ==
LOC: CCIC 09:00
PROVIDERS: Clinical Nurse Specialist; PCP Family Medicine; Referring Provider Family Medicine; Visit Provider Internal Medicine Hematology & Oncology
DX: C90.00 Multiple myeloma not having achieved remission (principal); D47.2 Monoclonal gammopathy; D80.1 Nonfamilial hypogammaglobulinemia
CPT/HCPCS: 36415; 80053; 82310; 82784; 83520; 84155; 84165; 85025; 86334; 96365; 96374; 96376; 96401; 96409; 96411; 99214; 99215; G0463; J9144; A9270; J3489; J9041

== ENCOUNTER 2024-11-29 07:53 | Outpatient (CLI) | payer MEDICARE, OTHER, SELFPAY | END 2024-11-29 07:54 | disposition home or self-care (01) | LOC: RAD 07:56 | PROVIDERS: PCP Family Medicine; Visit Provider Physician Assistant | DX: Z51.81 Encounter for therapeutic drug level monitoring (principal); I34.0 Nonrheumatic mitral (valve) insufficiency; Z79.899 Other long term (current) drug therapy; C50.912 Malignant neoplasm of unspecified site of left female breast | CPT/HCPCS: 93306 ==

== ENCOUNTER 2025-03-09 09:30 | Outpatient (RCR) | payer MEDICARE, OTHER, SELFPAY ==
[2024-09-15 08:42] VITALS: BP 124/69; PULSE 65; RESP 17; TEMP 36.8; O2SAT 99
[2024-09-15 09:03] LABS: Hematocrit 39.1 % (33.0-51.0); Hemoglobin* 12.8 gm/dL (12.0-16.0); Immature Granulocytes Abs Auto 0.00 K/uL (0.00-0.30); Immature Granulocytes Pct Auto 0.0 %; Lymphocytes Absolute Auto 0.50 K/uL (0.90-2.90); Mean Corpuscular HGB Conc 33 gm/dL (32-36); Mean Corpuscular Hemoglobin 34 pg (26-34); Mean Corpuscular Volume 103 fL (80-100); RDW Coefficient of Variation % 12.8 % (11.5-15.5); Red Blood Count 3.79 m/uL (4.00-5.20); White Blood Count* 2.65 K/uL (4.50-11.00)
[2024-09-15 09:04] LABS: Slide Review Reflex No
[2024-09-15 09:28] LABS: Albumin* 4.1 g/dL (3.3-5.0); Chloride* 108 mmol/L (96-114); Potassium* 3.6 mmol/L (3.6-5.1); Sodium* 141 mmol/L (135-149)
[2024-09-15 09:31] LABS: Alanine Aminotransferase* 38 U/L (4-35); Alkaline Phosphatase* 60 U/L (40-150); Anion Gap 5 mEq/L (7-15); Aspartate Amino Transferase* 42 U/L (12-35); Bilirubin Total* 1.1 mg/dL (0.1-1.5); Blood Urea Nitrogen* 16 mg/dL (7-30); Carbon Dioxide* 28 mmol/L (20-32); Creatinine* 0.7 mg/dL (0.5-1.5); Estimated Glomerular Filt Rate 88 ml/min; Glucose* 85 mg/dL (60-115); Total Protein* 6.4 g/dL (6.0-8.3)
[2024-09-15 09:32] LABS: Calcium* 10.6 mg/dL (8.4-10.6)
[2024-09-15] MEDS: BORTEZOMIB SUBQ 2.5 mg/ml 2.2 MG SUBCUT (10:31)
[2024-09-22 09:05] LABS: Hematocrit 37.8 % (33.0-51.0); Hemoglobin* 12.4 gm/dL (12.0-16.0); Immature Granulocytes Abs Auto 0.00 K/uL (0.00-0.30); Immature Granulocytes Pct Auto 0.0 %; Mean Corpuscular HGB Conc 33 gm/dL (32-36); Mean Corpuscular Hemoglobin 34 pg (26-34); Mean Corpuscular Volume 102 fL (80-100); RDW Coefficient of Variation % 12.7 % (11.5-15.5); Red Blood Count 3.69 m/uL (4.00-5.20); White Blood Count* 2.20 K/uL (4.50-11.00)
[2024-09-22 09:08] LABS: Lymphocytes Absolute Auto 0.40 K/uL (0.90-2.90); Slide Review Reflex No
[2024-09-22 09:10] VITALS: BP 117/77; PULSE 61; RESP 17; TEMP 36.4; O2SAT 98
[2024-09-22 09:14] LABS: Albumin* 4.0 g/dL (3.3-5.0); Chloride* 108 mmol/L (96-114); Potassium* 3.8 mmol/L (3.6-5.1); Sodium* 141 mmol/L (135-149)
[2024-09-22 09:16] LABS: Bilirubin Total* 1.1 mg/dL (0.1-1.5); Creatinine* 0.6 mg/dL (0.5-1.5); Estimated Glomerular Filt Rate 91 ml/min
[2024-09-22 09:17] LABS: Alanine Aminotransferase* 50 U/L (4-35); Alkaline Phosphatase* 66 U/L (40-150); Anion Gap 5 mEq/L (7-15); Aspartate Amino Transferase* 52 U/L (12-35); Blood Urea Nitrogen* 15 mg/dL (7-30); Calcium* 10.2 mg/dL (8.4-10.6); Carbon Dioxide* 28 mmol/L (20-32); Glucose* 99 mg/dL (60-115); Total Protein* 6.3 g/dL (6.0-8.3)
[2024-09-22] MEDS: ACETAMINOPHEN 325 MG TABLET 650 MG PO (09:26)
[2024-09-22] MEDS: BORTEZOMIB SUBQ 2.5 mg/ml 2.2 MG SUBCUT (10:33)
[2024-09-22] MEDS: DARATUMUMAB-HYALURONIDASE-FIHJ 15 ML SUBCUT (10:33)
[2024-09-25 02:59] LABS: Albumin 3.98 g/dL (3.75-5.01); Immunoglobulin A 12 mg/dL (68-408); Immunoglobulin G 832 mg/dL (768-1632); Immunoglobulin M 12 mg/dL (35-263)
[2024-09-29 09:00] VITALS: BP 101/63; PULSE 67; RESP 16; TEMP 36.2; O2SAT 98
[2024-09-29] MEDS: ZOLEDRONIC ACID 4 MG in 0.9 % SODIUM CHLORIDE 100 ml 100 ML 300 MG IVPB (09:29)
[2024-09-29] MEDS: BORTEZOMIB SUBQ 2.5 mg/ml 2.2 MG SUBCUT (09:51)
[2024-09-29] MEDS: SODIUM CHLORIDE 0.9 % (FLUSH) 10 ML SYRINGE IVF (09:57)
--- NOTE | 2024-10-05 09:34 | ONC.NURNOTE ---
Received a phone call from patient's home of residence. Patient tested positive for covid on 10/04/2024 and became symptomatic on 10/03/2024. She was due to be seen by the provider, nursing to work to reschedule out to 10/13/2024 which would be 10 days out from symptom start.
[2024-10-13] MEDS: BORTEZOMIB SUBQ 2.5 mg/ml 2.2 MG SUBCUT (15:11)
--- NOTE | 2024-10-14 09:46 | ONC.NURNOTE ---
Call received from RN at [facility], she is requesting a copy of Marissa's new scheduled. RN faxed October and November schedule to fax number provided.
[2024-10-20 09:11] LABS: Hematocrit 39.5 % (33.0-51.0); Hemoglobin* 12.9 gm/dL (12.0-16.0); Immature Granulocytes Abs Auto 0.04 K/uL (0.00-0.30); Immature Granulocytes Pct Auto 0.9 %; Mean Corpuscular HGB Conc 33 gm/dL (32-36); Mean Corpuscular Hemoglobin 34 pg (26-34); Mean Corpuscular Volume 105 fL (80-100); RDW Coefficient of Variation % 12.7 % (11.5-15.5); Red Blood Count 3.77 m/uL (4.00-5.20); White Blood Count* 4.59 K/uL (4.50-11.00)
[2024-10-20 09:12] LABS: Lymphocytes Absolute Auto 0.60 K/uL (0.90-2.90); Slide Review Reflex No
[2024-10-20 09:26] LABS: Albumin* 4.1 g/dL (3.3-5.0)
[2024-10-20 09:27] LABS: Chloride* 103 mmol/L (96-114); Potassium* 3.4 mmol/L (3.6-5.1); Sodium* 140 mmol/L (135-149)
[2024-10-20 09:29] LABS: Anion Gap 9 mEq/L (7-15); Bilirubin Total* 0.8 mg/dL (0.1-1.5); Blood Urea Nitrogen* 14 mg/dL (7-30); Carbon Dioxide* 28 mmol/L (20-32); Creatinine* 0.7 mg/dL (0.5-1.5); Est. Creatinine Clearance* 43.78; Estimated Glomerular Filt Rate 88 ml/min
[2024-10-20 09:30] VITALS: BP 102/69; PULSE 70; RESP 20; TEMP 36.3; O2SAT 98
[2024-10-20 09:30] LABS: Alanine Aminotransferase* 35 U/L (4-35); Alkaline Phosphatase* 80 U/L (40-150); Aspartate Amino Transferase* 37 U/L (12-35); Calcium* 10.4 mg/dL (8.4-10.6); Glucose* 154 mg/dL (60-115); Total Protein* 6.7 g/dL (6.0-8.3)
[2024-10-20] MEDS: ACETAMINOPHEN 325 MG TABLET 650 MG PO (09:45)
[2024-10-20] MEDS: BORTEZOMIB SUBQ 2.5 mg/ml 2.2 MG SUBCUT (10:54)
[2024-10-20] MEDS: DARATUMUMAB-HYALURONIDASE-FIHJ 15 ML SUBCUT (10:54)
[2024-10-27 08:54] LABS: Hematocrit 38.5 % (33.0-51.0); Hemoglobin* 12.5 gm/dL (12.0-16.0); Immature Granulocytes Pct Auto 0.3 %; Mean Corpuscular HGB Conc 33 gm/dL (32-36); Mean Corpuscular Hemoglobin 34 pg (26-34); Mean Corpuscular Volume 105 fL (80-100); RDW Coefficient of Variation % 13.1 % (11.5-15.5); Red Blood Count 3.68 m/uL (4.00-5.20); White Blood Count* 3.08 K/uL (4.50-11.00)
[2024-10-27 08:55] LABS: Immature Granulocytes Abs Auto 0.00 K/uL (0.00-0.30); Lymphocytes Absolute Auto 0.60 K/uL (0.90-2.90); Slide Review Reflex No
[2024-10-27 09:04] LABS: Albumin* 4.0 g/dL (3.3-5.0)
[2024-10-27 09:05] LABS: Chloride* 108 mmol/L (96-114); Potassium* 3.9 mmol/L (3.6-5.1); Sodium* 140 mmol/L (135-149)
[2024-10-27 09:07] LABS: Anion Gap 6 mEq/L (7-15); Aspartate Amino Transferase* 48 U/L (12-35); Bilirubin Total* 1.0 mg/dL (0.1-1.5); Blood Urea Nitrogen* 12 mg/dL (7-30); Carbon Dioxide* 26 mmol/L (20-32); Creatinine* 0.7 mg/dL (0.5-1.5); Est. Creatinine Clearance* 44.36; Estimated Glomerular Filt Rate 88 ml/min
[2024-10-27 09:08] LABS: Alanine Aminotransferase* 44 U/L (4-35); Alkaline Phosphatase* 72 U/L (40-150); Calcium* 10.0 mg/dL (8.4-10.6); Glucose* 106 mg/dL (60-115); Total Protein* 6.6 g/dL (6.0-8.3)
[2024-10-27] MEDS: ACETAMINOPHEN 325 MG TABLET 650 MG PO (09:23)
[2024-10-27 09:30] VITALS: BP 103/66; PULSE 80; RESP 16; TEMP 36.3; O2SAT 98
[2024-10-27] MEDS: DARATUMUMAB-HYALURONIDASE-FIHJ 15 ML SUBCUT (10:27)
[2024-10-27] MEDS: BORTEZOMIB SUBQ 2.5 mg/ml 2.2 MG SUBCUT (10:27)
--- NOTE | 2024-10-29 13:24 | URNOTE ---
Request received for authorization for Daratumumab hyaluronidase (Darzalex Faspro ([id number]). Prior authorization is not required patient carries Medicare primary and active [employer] Tram supplement, as services are based on medical necessity and follow Medicare guidelines.
[2024-11-03 09:19] VITALS: BP 111/58; PULSE 76; RESP 16; TEMP 36.6; O2SAT 97
[2024-11-03 09:24] LABS: Hematocrit 39.6 % (33.0-51.0); Hemoglobin* 12.8 gm/dL (12.0-16.0); Immature Granulocytes Abs Auto 0.00 K/uL (0.00-0.30); Immature Granulocytes Pct Auto 0.0 %; Mean Corpuscular HGB Conc 32 gm/dL (32-36); Mean Corpuscular Hemoglobin 34 pg (26-34); Mean Corpuscular Volume 106 fL (80-100); RDW Coefficient of Variation % 13.6 % (11.5-15.5); Red Blood Count 3.75 m/uL (4.00-5.20); White Blood Count* 2.98 K/uL (4.50-11.00)
[2024-11-03 09:27] LABS: Lymphocytes Absolute Auto 0.60 K/uL (0.90-2.90); Slide Review Reflex No
[2024-11-03 09:39] LABS: Albumin* 4.1 g/dL (3.3-5.0); Chloride* 107 mmol/L (96-114); Potassium* 3.5 mmol/L (3.6-5.1); Sodium* 140 mmol/L (135-149)
[2024-11-03 09:42] LABS: Alanine Aminotransferase* 43 U/L (4-35); Alkaline Phosphatase* 63 U/L (40-150); Anion Gap 5 mEq/L (7-15); Aspartate Amino Transferase* 42 U/L (12-35); Bilirubin Total* 1.0 mg/dL (0.1-1.5); Blood Urea Nitrogen* 17 mg/dL (7-30); Calcium* 10.4 mg/dL (8.4-10.6); Carbon Dioxide* 28 mmol/L (20-32); Creatinine* 0.7 mg/dL (0.5-1.5); Est. Creatinine Clearance* 44.36; Estimated Glomerular Filt Rate 88 ml/min; Glucose* 109 mg/dL (60-115); Total Protein* 6.6 g/dL (6.0-8.3)
[2024-11-03] MEDS: ACETAMINOPHEN 325 MG TABLET 650 MG PO (10:08)
[2024-11-03] MEDS: BORTEZOMIB SUBQ 2.5 mg/ml 2.2 MG SUBCUT (11:21)
[2024-11-03] MEDS: DARATUMUMAB-HYALURONIDASE-FIHJ 15 ML SUBCUT (11:21)
[2024-11-10 09:06] LABS: Hematocrit 40.2 % (33.0-51.0); Hemoglobin* 13.1 gm/dL (12.0-16.0); Immature Granulocytes Pct Auto 0.3 %; Mean Corpuscular HGB Conc 33 gm/dL (32-36); Mean Corpuscular Hemoglobin 34 pg (26-34); Mean Corpuscular Volume 105 fL (80-100); RDW Coefficient of Variation % 13.7 % (11.5-15.5); Red Blood Count 3.83 m/uL (4.00-5.20); White Blood Count* 3.29 K/uL (4.50-11.00)
[2024-11-10 09:10] VITALS: BP 115/69; PULSE 69; RESP 16; TEMP 36; O2SAT 98
[2024-11-10 09:15] LABS: Albumin* 4.2 g/dL (3.3-5.0); Chloride* 108 mmol/L (96-114); Immature Granulocytes Abs Auto 0.00 K/uL (0.00-0.30); Lymphocytes Absolute Auto 0.70 K/uL (0.90-2.90); Potassium* 3.4 mmol/L (3.6-5.1); Slide Review Reflex No; Sodium* 141 mmol/L (135-149)
[2024-11-10 09:17] LABS: Blood Urea Nitrogen* 18 mg/dL (7-30); Creatinine* 0.7 mg/dL (0.5-1.5); Est. Creatinine Clearance* 44.36; Estimated Glomerular Filt Rate 88 ml/min
[2024-11-10 09:18] LABS: Alanine Aminotransferase* 40 U/L (4-35); Alkaline Phosphatase* 63 U/L (40-150); Anion Gap 6 mEq/L (7-15); Aspartate Amino Transferase* 45 U/L (12-35); Bilirubin Total* 1.2 mg/dL (0.1-1.5); Calcium* 10.3 mg/dL (8.4-10.6); Carbon Dioxide* 27 mmol/L (20-32); Glucose* 107 mg/dL (60-115); Total Protein* 6.7 g/dL (6.0-8.3)
[2024-11-10] MEDS: ACETAMINOPHEN 325 MG TABLET 650 MG PO (09:45)
[2024-11-10] MEDS: DARATUMUMAB-HYALURONIDASE-FIHJ 15 ML SUBCUT (11:03)
[2024-11-10] MEDS: BORTEZOMIB SUBQ 2.5 mg/ml 2.2 MG SUBCUT (11:03)
[2024-11-17 08:54] VITALS: BP 111/65; PULSE 71; RESP 14; TEMP 36.3; O2SAT 98
[2024-11-17 09:15] LABS: Hematocrit 38.5 % (33.0-51.0); Hemoglobin* 12.5 gm/dL (12.0-16.0); Immature Granulocytes Abs Auto 0.00 K/uL (0.00-0.30); Immature Granulocytes Pct Auto 0.0 %; Mean Corpuscular HGB Conc 33 gm/dL (32-36); Mean Corpuscular Hemoglobin 34 pg (26-34); Mean Corpuscular Volume 105 fL (80-100); RDW Coefficient of Variation % 13.8 % (11.5-15.5); Red Blood Count 3.66 m/uL (4.00-5.20); White Blood Count* 2.90 K/uL (4.50-11.00)
[2024-11-17 09:21] LABS: Lymphocytes Absolute Auto 0.50 K/uL (0.90-2.90); Slide Review Reflex No
[2024-11-17 09:31] LABS: Albumin* 4.0 g/dL (3.3-5.0); Chloride* 108 mmol/L (96-114); Sodium* 139 mmol/L (135-149)
[2024-11-17 09:32] LABS: Potassium* 3.6 mmol/L (3.6-5.1)
[2024-11-17 09:34] LABS: Alanine Aminotransferase* 41 U/L (4-35); Anion Gap 4 mEq/L (7-15); Aspartate Amino Transferase* 51 U/L (12-35); Blood Urea Nitrogen* 13 mg/dL (7-30); Carbon Dioxide* 27 mmol/L (20-32); Creatinine* 0.7 mg/dL (0.5-1.5); Est. Creatinine Clearance* 44.36; Estimated Glomerular Filt Rate 88 ml/min
[2024-11-17 09:35] LABS: Alkaline Phosphatase* 56 U/L (40-150); Bilirubin Total* 0.9 mg/dL (0.1-1.5); Calcium* 10.3 mg/dL (8.4-10.6); Glucose* 65 mg/dL (60-115); Total Protein* 6.3 g/dL (6.0-8.3)
[2024-11-17] MEDS: ACETAMINOPHEN 325 MG TABLET 650 MG PO (09:59)
[2024-11-17] MEDS: BORTEZOMIB SUBQ 2.5 mg/ml 2.2 MG SUBCUT (11:32)
[2024-11-17] MEDS: DARATUMUMAB-HYALURONIDASE-FIHJ 15 ML SUBCUT (11:33)
[2024-11-24 08:49] LABS: Hematocrit 41.3 % (33.0-51.0); Hemoglobin* 13.5 gm/dL (12.0-16.0); Immature Granulocytes Abs Auto 0.00 K/uL (0.00-0.30); Immature Granulocytes Pct Auto 0.0 %; Lymphocytes Absolute Auto 0.60 K/uL (0.90-2.90); Mean Corpuscular HGB Conc 33 gm/dL (32-36); Mean Corpuscular Hemoglobin 34 pg (26-34); Mean Corpuscular Volume 105 fL (80-100); RDW Coefficient of Variation % 13.8 % (11.5-15.5); Red Blood Count 3.93 m/uL (4.00-5.20); White Blood Count* 3.33 K/uL (4.50-11.00)
[2024-11-24 08:50] LABS: Slide Review Reflex No
[2024-11-24 09:08] LABS: Chloride* 108 mmol/L (96-114)
[2024-11-24 09:09] LABS: Albumin* 4.3 g/dL (3.3-5.0); Potassium* 3.7 mmol/L (3.6-5.1); Sodium* 141 mmol/L (135-149)
[2024-11-24 09:11] LABS: Alanine Aminotransferase* 53 U/L (4-35); Anion Gap 6 mEq/L (7-15); Aspartate Amino Transferase* 67 U/L (12-35); Blood Urea Nitrogen* 20 mg/dL (7-30); Carbon Dioxide* 27 mmol/L (20-32); Creatinine* 0.7 mg/dL (0.5-1.5); Est. Creatinine Clearance* 44.36; Estimated Glomerular Filt Rate 88 ml/min
[2024-11-24 09:12] LABS: Alkaline Phosphatase* 63 U/L (40-150); Bilirubin Total* 1.3 mg/dL (0.1-1.5); Calcium* 10.4 mg/dL (8.4-10.6); Glucose* 84 mg/dL (60-115); Total Protein* 6.8 g/dL (6.0-8.3)
[2024-11-27 01:20] LABS: Albumin 4.06 g/dL (3.75-5.01); Immunoglobulin A 13 mg/dL (68-408); Immunoglobulin G 1009 mg/dL (768-1632); Immunoglobulin M 13 mg/dL (35-263)
[2024-12-15 09:30] VITALS: BP 112/70; PULSE 71; RESP 18; TEMP 35.9; O2SAT 98
[2024-12-15 09:59] LABS: Hematocrit 38.7 % (33.0-51.0); Hemoglobin* 13.0 gm/dL (12.0-16.0); Immature Granulocytes Abs Auto 0.00 K/uL (0.00-0.30); Immature Granulocytes Pct Auto 0.0 %; Mean Corpuscular HGB Conc 34 gm/dL (32-36); Mean Corpuscular Hemoglobin 35 pg (26-34); Mean Corpuscular Volume 104 fL (80-100); RDW Coefficient of Variation % 13.1 % (11.5-15.5); Red Blood Count 3.71 m/uL (4.00-5.20); White Blood Count* 2.99 K/uL (4.50-11.00)
[2024-12-15 10:01] LABS: Lymphocytes Absolute Auto 0.60 K/uL (0.90-2.90); Slide Review Reflex No
[2024-12-15 10:10] LABS: Albumin* 4.0 g/dL (3.3-5.0); Chloride* 109 mmol/L (96-114); Potassium* 3.9 mmol/L (3.6-5.1); Sodium* 141 mmol/L (135-149)
[2024-12-15 10:13] LABS: Alanine Aminotransferase* 37 U/L (4-35); Alkaline Phosphatase* 54 U/L (40-150); Anion Gap 4 mEq/L (7-15); Aspartate Amino Transferase* 42 U/L (12-35); Bilirubin Total* 0.9 mg/dL (0.1-1.5); Blood Urea Nitrogen* 13 mg/dL (7-30); Calcium* 10.5 mg/dL (8.4-10.6); Carbon Dioxide* 28 mmol/L (20-32); Creatinine* 0.7 mg/dL (0.5-1.5); Est. Creatinine Clearance* 44.36; Estimated Glomerular Filt Rate 88 ml/min; Glucose* 116 mg/dL (60-115); Total Protein* 6.6 g/dL (6.0-8.3)
[2024-12-15] MEDS: ACETAMINOPHEN 325 MG TABLET 650 MG PO (10:35)
[2024-12-15] MEDS: BORTEZOMIB SUBQ 2.5 mg/ml 2.2 MG SUBCUT (11:45)
[2024-12-15] MEDS: DARATUMUMAB-HYALURONIDASE-FIHJ 15 ML SUBCUT (11:45)
--- NOTE | 2024-12-15 12:52 | ONC.NURNOTE ---
enrollment in lenalidomide REMS program reviewed with Marissa and enrollment form completed and faxed to [facility]
--- NOTE | 2024-12-15 13:27 | ONC.NURNOTE ---
next steps for lenalidomide reviewed with daughter Christina plan for teaching next Friday- suggested care provider Alicia bowie for this information as well lenalidomide med sheets emailed to Christina at [email or web address]
--- NOTE | 2024-12-21 11:30 | ONC.NURNOTE ---
Addendum entered by Maria Luz Higuera RN 12/23/24 14:13: PA approved thru [facility] # [id number] auth # [id number] Copay over $1700 for first fill Discussed with Christina options of max $2000 out of pocket for all meds once met [employer] is available for Myeloma- instructions given for application Marissa was enrolled in [employer] now with $0 copay [employer] ID [id number] 11/23/24-11/22/25 [facility] will be contacting Christina to set up delivery of lenalidomide instructed not to start- to bring to [facility] on Friday. Original Note: LENALIDOMIDE-RX faxed to [facility] at [phone] On Friday PA submitted via Covermymeds to [facility]
[2024-12-22 09:24] LABS: Hematocrit 39.5 % (33.0-51.0); Hemoglobin* 13.0 gm/dL (12.0-16.0); Immature Granulocytes Abs Auto 0.00 K/uL (0.00-0.30); Immature Granulocytes Pct Auto 0.0 %; Lymphocytes Absolute Auto 0.60 K/uL (0.90-2.90); Mean Corpuscular HGB Conc 33 gm/dL (32-36); Mean Corpuscular Hemoglobin 34 pg (26-34); Mean Corpuscular Volume 105 fL (80-100); RDW Coefficient of Variation % 12.8 % (11.5-15.5); Red Blood Count 3.78 m/uL (4.00-5.20); White Blood Count* 3.09 K/uL (4.50-11.00)
[2024-12-22 09:37] LABS: Albumin* 4.0 g/dL (3.3-5.0); Chloride* 109 mmol/L (96-114); Potassium* 4.1 mmol/L (3.6-5.1); Slide Review Reflex No; Sodium* 141 mmol/L (135-149)
[2024-12-22 09:40] LABS: Alanine Aminotransferase* 48 U/L (4-35); Alkaline Phosphatase* 58 U/L (40-150); Anion Gap 4 mEq/L (7-15); Aspartate Amino Transferase* 47 U/L (12-35); Bilirubin Total* 1.1 mg/dL (0.1-1.5); Blood Urea Nitrogen* 15 mg/dL (7-30); Calcium* 10.4 mg/dL (8.4-10.6); Carbon Dioxide* 28 mmol/L (20-32); Creatinine* 0.7 mg/dL (0.5-1.5); Est. Creatinine Clearance* 44.36; Estimated Glomerular Filt Rate 88 ml/min; Glucose* 93 mg/dL (60-115); Total Protein* 6.7 g/dL (6.0-8.3)
[2024-12-22] MEDS: ACETAMINOPHEN 325 MG TABLET 650 MG PO (10:25)
[2024-12-22 10:31] VITALS: BP 127/84; PULSE 61; RESP 18; TEMP 36.6; O2SAT 98
[2024-12-22] MEDS: DARATUMUMAB-HYALURONIDASE-FIHJ 15 ML SUBCUT (11:46)
[2024-12-22] MEDS: BORTEZOMIB SUBQ 2.5 mg/ml 2.2 MG SUBCUT (11:46)
[2024-12-29 09:20] VITALS: BP 114/78; PULSE 74; RESP 18; TEMP 36.5; O2SAT 98
[2024-12-29 09:20] LABS: Hematocrit 41.3 % (33.0-51.0); Hemoglobin* 13.5 gm/dL (12.0-16.0); Immature Granulocytes Abs Auto 0.00 K/uL (0.00-0.30); Immature Granulocytes Pct Auto 0.0 %; Mean Corpuscular HGB Conc 33 gm/dL (32-36); Mean Corpuscular Hemoglobin 34 pg (26-34); Mean Corpuscular Volume 105 fL (80-100); RDW Coefficient of Variation % 13.0 % (11.5-15.5); Red Blood Count 3.93 m/uL (4.00-5.20); White Blood Count* 3.87 K/uL (4.50-11.00)
[2024-12-29 09:22] LABS: Lymphocytes Absolute Auto 0.70 K/uL (0.90-2.90); Slide Review Reflex No
[2024-12-29 09:39] LABS: Chloride* 110 mmol/L (96-114)
[2024-12-29 09:40] LABS: Albumin* 4.2 g/dL (3.3-5.0); Potassium* 3.8 mmol/L (3.6-5.1); Sodium* 143 mmol/L (135-149)
[2024-12-29 09:42] LABS: Anion Gap 6 mEq/L (7-15); Blood Urea Nitrogen* 16 mg/dL (7-30); Carbon Dioxide* 27 mmol/L (20-32); Creatinine* 0.7 mg/dL (0.5-1.5); Est. Creatinine Clearance* 44.10; Estimated Glomerular Filt Rate 88 ml/min
[2024-12-29 09:43] LABS: Alanine Aminotransferase* 51 U/L (4-35); Alkaline Phosphatase* 61 U/L (40-150); Bilirubin Total* 1.1 mg/dL (0.1-1.5); Calcium* 10.2 mg/dL (8.4-10.6); Glucose* 141 mg/dL (60-115); Total Protein* 6.9 g/dL (6.0-8.3)
[2024-12-29 09:44] LABS: Aspartate Amino Transferase* 51 U/L (12-35)
--- NOTE | 2024-12-29 09:45 | ONC.NURNOTE ---
lenalidomide coordination of care with EMMANUEL/Nataliia RN contact : phone [phone] fax: [phone] Day 1 of each cycle [facility] RN will confirm with with Nataliia that Marissa is within parameters to start the lenalidomide lenalidomide will be shipped Q 28 days to [facility] -it will be kept in the original pill bottle/or packets and stored in [facility] med drawer with other medications -they will bring the enclosed bottle/packaging to Marissa and she will self administer -empty bottles will be returned to the [facility] for disposal in chemo waste -signed RX faxed to Nataliia- with dosing schedule-confirmed understanding with Nataliia -reviewed s/s to watch for- diarrhea (most common), rash, fever, blood clots -copy of chemo ed sheets on lenalidomide has been shared with Nataliia/EMMANUEL
[2024-12-29] MEDS: ACETAMINOPHEN 325 MG TABLET 650 MG PO (10:15)
[2024-12-29] MEDS: SODIUM CHLORIDE 0.9 % (FLUSH) 10 ML SYRINGE IVF ×2 (10:42→11:01)
[2024-12-29] MEDS: ZOLEDRONIC ACID 4 MG in 0.9 % SODIUM CHLORIDE 100 ml 100 ML 410 MG IVPB (10:44)
[2024-12-29] MEDS: DARATUMUMAB-HYALURONIDASE-FIHJ 15 ML SUBCUT (11:27)
[2024-12-29] MEDS: BORTEZOMIB SUBQ 2.5 mg/ml 2.2 MG SUBCUT (11:27)
[2025-01-05 09:17] VITALS: BP 112/74; PULSE 72; RESP 16; TEMP 36.2; O2SAT 98
[2025-01-05 09:39] LABS: Hematocrit 39.8 % (33.0-51.0); Hemoglobin* 13.0 gm/dL (12.0-16.0); Immature Granulocytes Abs Auto 0.00 K/uL (0.00-0.30); Immature Granulocytes Pct Auto 0.0 %; Mean Corpuscular HGB Conc 33 gm/dL (32-36); Mean Corpuscular Hemoglobin 34 pg (26-34); Mean Corpuscular Volume 105 fL (80-100); RDW Coefficient of Variation % 12.8 % (11.5-15.5); Red Blood Count 3.80 m/uL (4.00-5.20); White Blood Count* 3.67 K/uL (4.50-11.00)
[2025-01-05 09:42] LABS: Lymphocytes Absolute Auto 0.60 K/uL (0.90-2.90); Slide Review Reflex No
[2025-01-05 10:00] LABS: Chloride* 110 mmol/L (96-114)
[2025-01-05 10:01] LABS: Albumin* 4.1 g/dL (3.3-5.0); Potassium* 4.0 mmol/L (3.6-5.1); Sodium* 142 mmol/L (135-149)
[2025-01-05 10:03] LABS: Alanine Aminotransferase* 41 U/L (4-35); Anion Gap 5 mEq/L (7-15); Aspartate Amino Transferase* 42 U/L (12-35); Blood Urea Nitrogen* 13 mg/dL (7-30); Carbon Dioxide* 27 mmol/L (20-32); Creatinine* 0.7 mg/dL (0.5-1.5); Est. Creatinine Clearance* 44.36; Estimated Glomerular Filt Rate 88 ml/min
[2025-01-05 10:04] LABS: Alkaline Phosphatase* 71 U/L (40-150); Bilirubin Total* 1.0 mg/dL (0.1-1.5); Calcium* 10.3 mg/dL (8.4-10.6); Glucose* 122 mg/dL (60-115); Total Protein* 7.1 g/dL (6.0-8.3)
[2025-01-05] MEDS: ACETAMINOPHEN 325 MG TABLET 650 MG PO (10:26)
[2025-01-05] MEDS: DARATUMUMAB-HYALURONIDASE-FIHJ 15 ML SUBCUT (11:44)
[2025-01-05] MEDS: BORTEZOMIB SUBQ 2.5 mg/ml 2.2 MG SUBCUT (11:51)
--- NOTE | 2025-01-05 12:51 | ONC.NURNOTE ---
Pt began Lenolidamide today; took 1st pill at [facility]. LM for [facility] nurse office updating on frequency/schedule of dailyx 21 days, off 7 days in a 28 day cycle.
--- NOTE | 2025-01-06 11:23 | ONC.NURNOTE ---
new start lenalidomide follow up: Nataliia CASH at [facility] said they have a process in place with staff wearing gloves and shaking one pill in med cup for Marissa to take no questions or concerns about side effects, reminded to call [facility] with any changes in status
[2025-01-12 09:33] VITALS: BP 133/77; PULSE 63; TEMP 35.9; O2SAT 98
[2025-01-12] MEDS: BORTEZOMIB SUBQ 2.5 mg/ml 2.2 MG SUBCUT (10:58)
[2025-01-19 08:40] LABS: Hematocrit 37.3 % (33.0-51.0); Hemoglobin* 12.3 gm/dL (12.0-16.0); Immature Granulocytes Pct Auto 0.3 %; Mean Corpuscular HGB Conc 33 gm/dL (32-36); Mean Corpuscular Hemoglobin 35 pg (26-34); Mean Corpuscular Volume 106 fL (80-100); RDW Coefficient of Variation % 12.9 % (11.5-15.5); Red Blood Count 3.53 m/uL (4.00-5.20); White Blood Count* 3.81 K/uL (4.50-11.00)
[2025-01-19 08:44] LABS: Immature Granulocytes Abs Auto 0.00 K/uL (0.00-0.30); Lymphocytes Absolute Auto 0.30 K/uL (0.90-2.90); Slide Review Reflex No
[2025-01-19 09:01] LABS: Albumin* 4.1 g/dL (3.3-5.0); Chloride* 109 mmol/L (96-114)
[2025-01-19 09:02] LABS: Potassium* 3.4 mmol/L (3.6-5.1); Sodium* 141 mmol/L (135-149)
[2025-01-19 09:04] LABS: Alanine Aminotransferase* 37 U/L (4-35); Anion Gap 5 mEq/L (7-15); Aspartate Amino Transferase* 43 U/L (12-35); Blood Urea Nitrogen* 15 mg/dL (7-30); Carbon Dioxide* 27 mmol/L (20-32); Creatinine* 0.7 mg/dL (0.5-1.5); Est. Creatinine Clearance* 44.36; Estimated Glomerular Filt Rate 88 ml/min
[2025-01-19 09:05] LABS: Alkaline Phosphatase* 64 U/L (40-150); Bilirubin Total* 1.0 mg/dL (0.1-1.5); Calcium* 9.9 mg/dL (8.4-10.6); Glucose* 129 mg/dL (60-115); Total Protein* 6.7 g/dL (6.0-8.3)
[2025-01-19] MEDS: ACETAMINOPHEN 325 MG TABLET 650 MG PO (10:49)
[2025-01-19] MEDS: BORTEZOMIB SUBQ 2.5 mg/ml 2.2 MG SUBCUT (12:03)
[2025-01-19] MEDS: DARATUMUMAB-HYALURONIDASE-FIHJ 15 ML SUBCUT (12:04)
[2025-01-26 09:26] VITALS: BP 115/70; PULSE 59; RESP 16; TEMP 36.2; O2SAT 59
[2025-01-26] MEDS: BORTEZOMIB SUBQ 2.5 mg/ml 2.2 MG SUBCUT (10:34)
[2025-02-02 09:14] VITALS: BP 112/75; PULSE 67; RESP 15; TEMP 36.3; O2SAT 98
[2025-02-02 09:39] LABS: Hematocrit 38.7 % (33.0-51.0); Hemoglobin* 12.7 gm/dL (12.0-16.0); Immature Granulocytes Abs Auto 0.00 K/uL (0.00-0.30); Immature Granulocytes Pct Auto 0.0 %; Mean Corpuscular HGB Conc 33 gm/dL (32-36); Mean Corpuscular Hemoglobin 34 pg (26-34); Mean Corpuscular Volume 104 fL (80-100); RDW Coefficient of Variation % 12.7 % (11.5-15.5); Red Blood Count 3.72 m/uL (4.00-5.20); White Blood Count* 2.23 K/uL (4.50-11.00)
[2025-02-02 09:50] LABS: Lymphocytes Absolute Auto 0.60 K/uL (0.90-2.90); Slide Review Reflex No
[2025-02-02 10:18] LABS: Albumin* 3.9 g/dL (3.3-5.0); Chloride* 109 mmol/L (96-114); Sodium* 140 mmol/L (135-149)
[2025-02-02 10:19] LABS: Potassium* 3.4 mmol/L (3.6-5.1)
[2025-02-02 10:21] LABS: Alanine Aminotransferase* 31 U/L (4-35); Alkaline Phosphatase* 61 U/L (40-150); Anion Gap 4 mEq/L (7-15); Aspartate Amino Transferase* 38 U/L (12-35); Bilirubin Total* 1.0 mg/dL (0.1-1.5); Blood Urea Nitrogen* 17 mg/dL (7-30); Carbon Dioxide* 27 mmol/L (20-32); Creatinine* 0.7 mg/dL (0.5-1.5); Est. Creatinine Clearance* 44.26; Estimated Glomerular Filt Rate 88 ml/min; Total Protein* 6.2 g/dL (6.0-8.3)
[2025-02-02 10:22] LABS: Calcium* 10.3 mg/dL (8.4-10.6); Glucose* 127 mg/dL (60-115)
--- NOTE | 2025-02-02 10:52 | ONC.NURNOTE ---
Day one of treatment to be held today ( lenalidomide, Darzalex, Velcade) Nataliia called with update at [facility] labs recheck next week
[2025-02-09 09:15] VITALS: BP 115/63; PULSE 68; RESP 15; TEMP 36.2; O2SAT 96
[2025-02-09 09:36] LABS: Hematocrit 39.0 % (33.0-51.0); Hemoglobin* 12.8 gm/dL (12.0-16.0); Immature Granulocytes Abs Auto 0.00 K/uL (0.00-0.30); Immature Granulocytes Pct Auto 0.0 %; Mean Corpuscular HGB Conc 33 gm/dL (32-36); Mean Corpuscular Hemoglobin 35 pg (26-34); Mean Corpuscular Volume 105 fL (80-100); RDW Coefficient of Variation % 12.6 % (11.5-15.5); Red Blood Count 3.70 m/uL (4.00-5.20); White Blood Count* 2.35 K/uL (4.50-11.00)
[2025-02-09 09:37] LABS: Lymphocytes Absolute Auto 0.60 K/uL (0.90-2.90)
[2025-02-09 09:38] LABS: Slide Review Reflex No
--- NOTE | 2025-02-09 11:42 | ONC.NURNOTE ---
Treatment to be held today ( lenalidomide, Darzalex, Velcade) Dexamethasone to be held 02/10 as well Nataliia called with update at [facility] Labs recheck next week
--- NOTE | 2025-02-09 12:20 | ONC.NURNOTE ---
Treatment held today for ANC 1.4. Magi CASH/Lianna Sotelo APRN following up with Dr. Pineda tomorrow when in clinic to review treatment parameters and possible adjustment of Revlimid dose; then will update [facility].
[2025-02-16 09:29] VITALS: BP 134/76; PULSE 69; RESP 16; TEMP 36.4; O2SAT 97
[2025-02-16 09:47] LABS: Hematocrit 41.5 % (33.0-51.0); Hemoglobin* 13.6 gm/dL (12.0-16.0); Immature Granulocytes Abs Auto 0.00 K/uL (0.00-0.30); Immature Granulocytes Pct Auto 0.0 %; Mean Corpuscular HGB Conc 33 gm/dL (32-36); Mean Corpuscular Hemoglobin 34 pg (26-34); Mean Corpuscular Volume 104 fL (80-100); RDW Coefficient of Variation % 12.4 % (11.5-15.5); Red Blood Count 3.98 m/uL (4.00-5.20); White Blood Count* 2.54 K/uL (4.50-11.00)
[2025-02-16 09:51] LABS: Lymphocytes Absolute Auto 0.70 K/uL (0.90-2.90); Slide Review Reflex No
[2025-02-16] MEDS: ACETAMINOPHEN 325 MG TABLET 650 MG PO (12:04)
[2025-02-16] MEDS: DARATUMUMAB-HYALURONIDASE-FIHJ 15 ML SUBCUT (13:38)
[2025-02-16] MEDS: BORTEZOMIB SUBQ 2.5 mg/ml 1.7 MG SUBCUT (13:38)
[2025-02-16 14:44] LABS: Albumin* 4.1 g/dL (3.3-5.0); Chloride* 109 mmol/L (96-114); Potassium* 3.7 mmol/L (3.6-5.1); Sodium* 142 mmol/L (135-149)
[2025-02-16 14:46] LABS: Alanine Aminotransferase* 54 U/L (4-35); Anion Gap 6 mEq/L (7-15); Aspartate Amino Transferase* 65 U/L (12-35); Blood Urea Nitrogen* 15 mg/dL (7-30); Carbon Dioxide* 27 mmol/L (20-32); Creatinine* 0.8 mg/dL (0.5-1.5); Est. Creatinine Clearance* 44.36; Estimated Glomerular Filt Rate 75 ml/min
[2025-02-16 14:47] LABS: Alkaline Phosphatase* 65 U/L (40-150); Bilirubin Total* 0.9 mg/dL (0.1-1.5); Calcium* 10.4 mg/dL (8.4-10.6); Glucose* 80 mg/dL (60-115); Total Protein* 6.5 g/dL (6.0-8.3)
[2025-02-23 09:37] LABS: Hematocrit 39.4 % (33.0-51.0); Hemoglobin* 12.9 gm/dL (12.0-16.0); Immature Granulocytes Abs Auto 0.00 K/uL (0.00-0.30); Immature Granulocytes Pct Auto 0.0 %; Mean Corpuscular HGB Conc 33 gm/dL (32-36); Mean Corpuscular Hemoglobin 34 pg (26-34); Mean Corpuscular Volume 105 fL (80-100); RDW Coefficient of Variation % 12.2 % (11.5-15.5); Red Blood Count 3.75 m/uL (4.00-5.20); White Blood Count* 2.99 K/uL (4.50-11.00)
[2025-02-23 09:40] VITALS: BP 98/59; PULSE 60; RESP 16; TEMP 36.6; O2SAT 99
[2025-02-23 09:42] LABS: Lymphocytes Absolute Auto 0.50 K/uL (0.90-2.90)
[2025-02-23 09:43] LABS: Slide Review Reflex No
[2025-02-23] MEDS: BORTEZOMIB SUBQ 2.5 mg/ml 1.7 MG SUBCUT (10:27)
[2025-03-02 09:20] VITALS: BP 107/60; PULSE 59; RESP 16; TEMP 35.7; O2SAT 97
[2025-03-02 09:22] LABS: Hematocrit 40.6 % (33.0-51.0); Hemoglobin* 13.2 gm/dL (12.0-16.0); Immature Granulocytes Abs Auto 0.00 K/uL (0.00-0.30); Immature Granulocytes Pct Auto 0.0 %; Mean Corpuscular HGB Conc 33 gm/dL (32-36); Mean Corpuscular Hemoglobin 34 pg (26-34); Mean Corpuscular Volume 105 fL (80-100); RDW Coefficient of Variation % 12.2 % (11.5-15.5); Red Blood Count 3.86 m/uL (4.00-5.20); White Blood Count* 4.29 K/uL (4.50-11.00)
[2025-03-02 09:34] LABS: Lymphocytes Absolute Auto 0.40 K/uL (0.90-2.90)
[2025-03-02 09:35] LABS: Slide Review Reflex No
[2025-03-02 09:45] LABS: Albumin* 4.0 g/dL (3.3-5.0); Chloride* 110 mmol/L (96-114); Potassium* 3.7 mmol/L (3.6-5.1); Sodium* 141 mmol/L (135-149)
[2025-03-02 09:48] LABS: Alanine Aminotransferase* 37 U/L (4-35); Alkaline Phosphatase* 68 U/L (40-150); Anion Gap 3 mEq/L (7-15); Aspartate Amino Transferase* 36 U/L (12-35); Bilirubin Total* 0.9 mg/dL (0.1-1.5); Blood Urea Nitrogen* 11 mg/dL (7-30); Calcium* 10.1 mg/dL (8.4-10.6); Carbon Dioxide* 28 mmol/L (20-32); Creatinine* 0.7 mg/dL (0.5-1.5); Est. Creatinine Clearance* 44.36; Estimated Glomerular Filt Rate 88 ml/min; Glucose* 103 mg/dL (60-115); Total Protein* 6.2 g/dL (6.0-8.3)
[2025-03-02] MEDS: ACETAMINOPHEN 325 MG TABLET 650 MG PO (10:17)
[2025-03-02] MEDS: SODIUM CHLORIDE 0.9 % (FLUSH) 10 ML SYRINGE IVF (10:20)
[2025-03-02] MEDS: DARATUMUMAB-HYALURONIDASE-FIHJ 15 ML SUBCUT (11:29)
[2025-03-02] MEDS: BORTEZOMIB SUBQ 2.5 mg/ml 1.7 MG SUBCUT (11:31)
--- NOTE | 2025-03-07 14:01 | ONC.NURNOTE ---
Revlimid RX was refaxed to [facility]- it was not received last week
[2025-03-09 09:09] VITALS: BP 114/62; PULSE 56; TEMP 36.4; O2SAT 96
[2025-03-09] MEDS: BORTEZOMIB SUBQ 2.5 mg/ml 1.7 MG SUBCUT (10:22)
--- NOTE | 2025-03-09 10:48 | ONC.NURNOTE ---
Patient in clinic today. No labs needed. Patient tolerated Velcade injection without issues. Patient's daughter Christina called about Revlimid prescription. Our Nurse Navigator Maria Luz will call us back. Marissa is scheduled next week 03/16 at 9:30 am for labs and both injections. Please all with any questions or concerns [phone]. Kerry Mahmood RN.
== END 2025-03-14 23:59 | disposition home or self-care (01) ==
LOC: CCIC 09:30
PROVIDERS: Internal Medicine Hematology & Oncology; PCP Family Medicine; Referring Provider Family Medicine; Visit Provider Clinical Nurse Specialist
DX: C90.00 Multiple myeloma not having achieved remission (principal); D47.2 Monoclonal gammopathy
CPT/HCPCS: 36415; 80053; 82310; 82784; 83520; 84155; 84165; 85025; 86334; 96365; 96401; 99215; G0463; J9144; A9270; J3489; J9041